=== PATIENT | female | born 1945 | race Caucasian/White ===

== ENCOUNTER 2024-02-06 18:46 | Emergency (ER) | payer OTHER, SELFPAY ==
--- NOTE | ~2024-02-06 | XR_ITS ---
EXAMINATION: XR chest 2V Exam Date/Time: 02/06/2024 19:32 CDT HISTORY: cough x 4 days. Ex smoker, HX COPD Comparison: 01/24/2018. RESULT: Lines, tubes, and devices: Cholecystectomy clips. Lungs and pleura: Subsegmental and streaky right middle lobe opacities. Cardiomediastinal silhouette: Stable. Other: No acute osseous or upper abdominal finding. IMPRESSION: Subsegmental right middle lobe atelectasis/consolidation. Reviewed, dictated and finalized at location K.
[2024-02-06 18:54] VITALS: BP 113/66; PULSE 106; RESP 20; TEMP 36.8; O2SAT 95
--- NOTE | 2024-02-06 19:11 | ED.URI ---
HPI - URI/Sore Throat General Chief Complaint: Upper Respiratory Infection Stated Complaint: cough/sob/upper respiratory Time Seen by Provider: 02/06/24 19:13 Source: patient, RN notes reviewed and old records reviewed Mode of arrival: ambulatory Limitations: no limitations History of Present Illness HPI Narrative: 78-year-old female presents [facility] with complaints of cough, shortness of breath since , 4 days. Has been using her nebulizer machine every 4-6 hours for 3 days. HX of COPD Related Data Home Medications Medication Instructions Recorded Confirmed albuterol sulfate 2.5 mg/3 mL mg 02/06/24 (0.083 %) solution for nebulization aspirin 81 mg tablet,delayed mg 02/06/24 release dicyclomine 20 mg tablet mg 02/06/24 duloxetine 60 mg capsule,delayed mg PO 02/06/24 release escitalopram oxalate 10 mg tablet mg 02/06/24 fluticasone fur. 100 mcg-umeclid inhalation 02/06/24 62.5 mcg-vilant 25 mcg inhalat.powder (Trelegy Ellipta) furosemide 20 mg tablet mg 02/06/24 isosorbide mononitrate 30 mg mg PO 02/06/24 tablet,extended release 24 hr levothyroxine 150 mcg tablet mcg 02/06/24 lorazepam 0.5 mg tablet mg 02/06/24 metformin 500 mg tablet mg 02/06/24 metoprolol succinate 25 mg mg PO 02/06/24 tablet,extended release 24 hr montelukast 10 mg tablet mg 02/06/24 olanzapine 5 mg tablet mg 02/06/24 omeprazole 40 mg capsule,delayed mg 02/06/24 release pen needle, diabetic 31 gauge x 02/06/24 02/06/24 5/16 (BD Ultra-Fine Short Pen Needle) semaglutide 0.25 mg or 0.5 mg (2 mg subcut 02/06/24 mg/3 mL) subcutaneous pen injector (AVOB) Allergies Allergy/AdvReac Type Severity Reaction Status Date / Time atorvastatin Allergy Unknown Verified 06/24/18 16:26 prochlorperazine Allergy Unknown Verified 06/24/18 16:26 Sulfa (Sulfonamide Allergy Unknown Verified 06/24/18 16:26 Antibiotics) naproxen AdvReac Unknown Nausea Verified 06/24/18 16:26 Tetracyclines AdvReac Unknown Nausea and Verified 06/24/18 16:26 Vomiting Review of Systems Review of Systems: All systems reviewed & are unremarkable except as noted in HPI and below Constitutional: Constitutional: Reports no additional constitutional complaints Eyes: Eyes: Reports no additional eye complaints ENT: Reports system reviewed and no additional complaints, except as documented Cardiovascular: Cardiovascular: Reports no additional cardiovascular complaints, Denies chest pain and Denies dyspnea Respiratory: Respiratory: Reports as per HPI, Reports chest congestion, Reports cough and Reports dyspnea Gastrointestinal: Gastrointestinal: Reports no additional gastrointestinal complaints, Denies abdominal pain, Denies nausea and Denies vomiting Musculoskeletal: Musculoskeletal: Reports no additional musculoskeletal complaints Integumentary/Breasts: Skin/Breast: Reports system reviewed and no additional complaints, except as docu Neurologic: Reports system reviewed and no additional complaints, except as documented Psychiatric: Psychiatric: Reports no additional psychiatric complaints Allergic/Immunologic: Allergic/Immunologic: Reports no additional allergic/immunologic complaints [facility] Past Medical History Medical History (Updated 02/06/24 @ 20:44 by Carmina Rubin APRN) Acid reflux Anxiety and depression COPD (chronic obstructive pulmonary disease) Diabetes Social History Social History (Updated 02/06/24 @ 20:42 by Carmina Rubin APRN) Smoking status: Former smoker Living arrangements: with family Gender identity (if verbalized by the patient): Female Comments At the time of my signature, I reviewed and agree with the nursing past medical, surgical, social, and family history. There is no relevant family history pertinent to the patient complaint. Exam Const: General: cooperative, comfortable, no acute distress, well developed, alert, ill appearing chronically and well
== END 2024-02-06 20:20 | disposition home or self-care (01) ==
PROVIDERS: Emergency Provider Nurse Practitioner; PCP Family Medicine
DX: J18.1 Lobar pneumonia, unspecified organism (principal); K21.9 Gastro-esophageal reflux disease without esophagitis; J44.9 Chronic obstructive pulmonary disease, unspecified; E11.9 Type 2 diabetes mellitus without complications; Z87.891 Personal history of nicotine dependence
CPT/HCPCS: 71046; 99213; G0463

== ENCOUNTER 2024-03-21 17:26 | Emergency (ER) | payer OTHER, SELFPAY ==
--- NOTE | ~2024-03-21 | XR_ITS ---
XR chest 2V Ordering provider: LYUDMILA Wilson History: 78 years Female with . cough x2 weeks . Comparison: February 06, 2024 FINDINGS: MEDIASTINUM: The cardiac silhouette is not enlarged. LUNGS: No infiltrates, effusions or pneumothorax. OTHER: No free air under the diaphragm. Degenerative changes of the spine with S-shaped scoliosis. IMPRESSION: No acute cardiopulmonary pathology. Reviewed, dictated and finalized at location A.
[2024-03-21 17:32] VITALS: BP 136/59; PULSE 103; RESP 18; TEMP 36.9; O2SAT 96
--- NOTE | 2024-03-21 17:54 | ED.URI ---
HPI - URI/Sore Throat General Chief Complaint: Upper Respiratory Infection Stated Complaint: congestion/tight chest/wheezing Time Seen by Provider: 03/21/24 17:46 Source: patient, RN notes reviewed and old records reviewed Mode of arrival: ambulatory Limitations: no limitations History of Present Illness HPI Narrative: Patient presents today complaining of a 2 week history of productive cough, nasal congestion, headache chills, wheezing and occasional shortness of breath. Reports cough is worse when lying flat. History of COPD. She has tried nebulizer treatments, Mucinex, Singulair, Benadryl, Flonase with mild relief. Patient was diagnosed with right middle lobe pneumonia the beginning of February and treated with Augmentin and azithromycin. States symptoms had resolved, but returned a few weeks later. Related Data Home Medications Medication Instructions Recorded Confirmed albuterol sulfate 2.5 mg/3 mL mg 02/06/24 (0.083 %) solution for nebulization aspirin 81 mg tablet,delayed mg 02/06/24 release duloxetine 60 mg capsule,delayed mg PO 02/06/24 release escitalopram oxalate 10 mg tablet mg 02/06/24 furosemide 20 mg tablet mg 02/06/24 isosorbide mononitrate 30 mg mg PO 02/06/24 tablet,extended release 24 hr levothyroxine 150 mcg tablet mcg 02/06/24 lorazepam 0.5 mg tablet mg 02/06/24 metformin 500 mg tablet mg 02/06/24 metoprolol succinate 25 mg mg PO 02/06/24 tablet,extended release 24 hr montelukast 10 mg tablet mg 02/06/24 olanzapine 5 mg tablet mg 02/06/24 omeprazole 40 mg capsule,delayed mg 02/06/24 release pen needle, diabetic 31 gauge x 02/06/24 02/06/24 5/16 (BD Ultra-Fine Short Pen Needle) semaglutide 0.25 mg or 0.5 mg (2 mg subcut 02/06/24 mg/3 mL) subcutaneous pen injector ([employer]) Allergies Allergy/AdvReac Type Severity Reaction Status Date / Time atorvastatin Allergy Unknown Other Verified 03/21/24 17:47 prochlorperazine Allergy Unknown Unknown Verified 03/21/24 17:47 Sulfa (Sulfonamide Allergy Unknown Unknown Verified 03/21/24 17:47 Antibiotics) naproxen AdvReac Unknown Nausea Verified 06/24/18 16:26 Tetracyclines AdvReac Unknown Nausea and Verified 06/24/18 16:26 Vomiting Review of Systems Review of Systems: CONSTITUTIONAL: Denies body aches, fever, or sweats.+ chills EYES: Denies visual changes, redness, or discharge. ENT: Denies rhinorrhea, sore throat, or otalgia.+ congestion CARDIOVASCULAR: Denies chest pain, palpitations, or edema. RESPIRATORY: + cough, wheezing, shortness of breath GASTROINTESTINAL: Denies abdominal pain, nausea, vomiting, or diarrhea. GENITOURINARY: Denies dysuria or hematuria. SKIN: Denies rash, itching, or wounds. MUSCULOSKELETAL: Denies back pain, joint pain, or myalgia. NEUROLOGIC: Denies numbness, tingling, or weakness.+ headache PSYCH: Denies depression or anxiety. [facility] Past Medical History Medical History Acid reflux Anxiety and depression COPD (chronic obstructive pulmonary disease) Diabetes Social History Social History Smoking status: Former smoker Living arrangements: with family Gender identity (if verbalized by the patient): Female Comments At time of signature, I have reviewed and agree with nursing past medical, surgical, social and family history unless otherwise noted. Please see nursing chart for further information. There is no relevant family history pertinent to the presenting complaint Exam Narrative: GENERAL: Well-appearing, well-nourished, and in no acute distress. HEAD: Normocephalic, atraumatic. EYES: EOMI. No redness or drainage. Conjunctivae normal. ENT: Mucous membranes pink and moist. Nares clear. No rhinorrhea. TMs normal bilaterally. Throat normal. Uvula midline. NECK: Normal AROM. Supple. No lymphadenopathy. CHEST: No respiratory dis
== END 2024-03-21 18:28 | disposition home or self-care (01) ==
PROVIDERS: Emergency Provider Nurse Practitioner; PCP Family Medicine
DX: J44.1 Chronic obstructive pulmonary disease with (acute) exacerbation (principal); J01.90 Acute sinusitis, unspecified; K21.9 Gastro-esophageal reflux disease without esophagitis; E11.9 Type 2 diabetes mellitus without complications; Z87.891 Personal history of nicotine dependence
CPT/HCPCS: 71046; 99213; G0463

== ENCOUNTER 2024-05-05 14:26 | Emergency (ER) | payer OTHER, SELFPAY ==
[2024-05-05 14:32] VITALS: BP 135/46; PULSE 87; RESP 16; TEMP 36.8; O2SAT 97
--- NOTE | 2024-05-05 14:37 | ED.GENADULT ---
HPI - General Adult General Chief complaint: Extremity Injury, Lower Stated complaint: Right Foot Swellling/Pain Time Seen by Provider: 05/05/24 14:38 Source: patient, RN notes reviewed and old records reviewed Mode of arrival: ambulatory Limitations: no limitations History of Present Illness HPI narrative: 78-year-old female to [facility] complaint of right medial ankle pain and shortness of breath for 1 week. Denies injury, numbness, tingling, altered gait, Cough, fever , chest pain. Patient resting comfortably in exam room in no acute distress. Respirations even and nonlabored. Related Data Home Medications Medication Instructions Recorded Confirmed albuterol sulfate 2.5 mg/3 mL mg 02/06/24 (0.083 %) solution for nebulization aspirin 81 mg tablet,delayed mg 02/06/24 release duloxetine 60 mg capsule,delayed mg PO 02/06/24 release escitalopram oxalate 10 mg tablet mg 02/06/24 furosemide 20 mg tablet mg 02/06/24 isosorbide mononitrate 30 mg mg PO 02/06/24 tablet,extended release 24 hr levothyroxine 150 mcg tablet mcg 02/06/24 lorazepam 0.5 mg tablet mg 02/06/24 metformin 500 mg tablet mg 02/06/24 metoprolol succinate 25 mg mg PO 02/06/24 tablet,extended release 24 hr montelukast 10 mg tablet mg 02/06/24 olanzapine 5 mg tablet mg 02/06/24 omeprazole 40 mg capsule,delayed mg 02/06/24 release pen needle, diabetic 31 gauge x 02/06/24 02/06/24 5/16 (BD Ultra-Fine Short Pen Needle) semaglutide 0.25 mg or 0.5 mg (2 mg subcut 02/06/24 mg/3 mL) subcutaneous pen injector (Ozempic) dicyclomine 20 mg tablet mg 05/05/24 diphenoxylate-atropine 2.5 tablet 05/05/24 mg-0.025 mg tablet fenofibrate 160 mg tablet mg 05/05/24 fluticasone fur. 100 mcg-umeclid inhalation 05/05/24 62.5 mcg-vilant 25 mcg inhalat.powder (Trelegy Ellipta) Allergies Allergy/AdvReac Type Severity Reaction Status Date / Time atorvastatin Allergy Unknown Other Verified 05/05/24 14:35 prochlorperazine Allergy Unknown Unknown Verified 05/05/24 14:35 Sulfa (Sulfonamide Allergy Unknown Unknown Verified 05/05/24 14:35 Antibiotics) naproxen AdvReac Unknown Nausea Verified 05/05/24 14:35 Tetracyclines AdvReac Unknown Nausea and Verified 05/05/24 14:35 Vomiting Review of Systems Review of Systems: All systems reviewed & are unremarkable except as noted in HPI and below Constitutional: Constitutional: Reports no additional constitutional complaints Eyes: Eyes: Reports no additional eye complaints ENT: Reports system reviewed and no additional complaints, except as documented Cardiovascular: Cardiovascular: Reports no additional cardiovascular complaints, Denies chest pain and Denies dyspnea Respiratory: Respiratory: Reports no additional respiratory complaints, Denies cough and Denies dyspnea Musculoskeletal: Musculoskeletal: Reports as per HPI Comments: Right medial ankle pain Neurologic: Reports system reviewed and no additional complaints, except as documented Psychiatric: Psychiatric: Reports no additional psychiatric complaints PMFSH Past Medical History Medical History Acid reflux Anxiety and depression COPD (chronic obstructive pulmonary disease) Diabetes Social History Social History Smoking status: Former smoker Living arrangements: with family Gender identity (if verbalized by the patient): Female Comments At the time of my signature, I reviewed and agree with the nursing past medical, surgical, social, and family history. There is no relevant family history pertinent to the patient complaint. Exam Const: General: cooperative, healthy appearing, comfortable, no acute distress, alert and well nourished Nutritional Appearance: well nourished Orientation/consciousness: patient oriented x3 Limitations: no limitations HENMT: Head: no
[2024-05-05 14:39] VITALS: BP 135/46; PULSE 87; RESP 16; TEMP 36.8; O2SAT 97
== END 2024-05-05 15:20 | disposition short-term general hospital (02) ==
LOC: EXPBETH 14:29
PROVIDERS: Emergency Provider Nurse Practitioner Family; PCP Family Medicine
DX: M25.571 Pain in right ankle and joints of right foot (principal); K21.9 Gastro-esophageal reflux disease without esophagitis; J44.9 Chronic obstructive pulmonary disease, unspecified; E11.9 Type 2 diabetes mellitus without complications; Z87.891 Personal history of nicotine dependence
CPT/HCPCS: 99212; G0463

== ENCOUNTER 2024-05-05 15:50 | Emergency (ER) | payer OTHER, SELFPAY ==
--- NOTE | ~2024-05-05 | XR_ITS ---
EXAMINATION: XR ankle RT min 3V DATE: 05/05/2024 16:19 INDICATION: Right ankle pain TECHNIQUE: Anteroposterior, oblique, mortise, and lateral views of the right ankle were obtained. COMPARISON: None. FINDINGS: Bone alignment is normal. No fracture. There is mild osteoarthritis at the tibiotalar and calcaneocub oid articulations. Small plantar calcaneal spur and tiny Achilles calcaneal spur. Soft tissues are un remarkable. No ankle joint effusion. IMPRESSION: 1. Mild tibiotalar and calcaneocuboid osteoarthritis. No acute osseous abnormality. Reviewed, dictated and finalized at location A. IMPRESSION: 1. Mild tibiotalar and calcaneocuboid osteoarthritis. No acute osseous abnormal ity.
--- NOTE | ~2024-05-05 | US_ITS ---
EXAMINATION: US venous doppler LE RT DATE: 05/05/2024 16:29 INDICATION: Right lower limb pain TECHNIQUE: Grayscale ultrasound images without and with compression and Doppler ultrasound images of the right lower extremity veins were obtained. COMPARISON: None. FINDINGS: The visualized portions of right common femoral vein, profunda (deep) femoral vein, femoral vein, pop liteal vein, peroneal trunk, posterior tibial veins, peroneal veins, gastrocnemius vein and greater s aphenous vein outflow are patent. IMPRESSION: 1. No deep venous thrombosis in the right lower limb. Reviewed, dictated and finalized at location A.
[2024-05-05 15:51] VITALS: BP 132/59; PULSE 88; RESP 16; TEMP 36.6; O2SAT 97
--- NOTE | 2024-05-05 16:08 | ED.EXTPRO ---
HPI - Extremity Problem General Chief complaint: Extremity Problem,Nontraumatic Stated complaint: r/o dvt from urgent care Time Seen by Provider: 05/05/24 15:54 History of Present Illness HPI Narrative: 78-year-old female with a reported history of pancreatic cancer in remission for 2 years presents to the emergency department to rule out a DVT to her right lower extremity. Patient reports pain and swelling to her right lower tib-fib and ankle for approximately 1 week. She denies injury trauma. She went to urgent care prior to coming to the ED and was sent to the ED for an ultrasound to rule out a DVT. She does report a history of DVT in the past when she was undergoing chemotherapy. She was on Eliquis but discontinued this approximately 2 years ago. Related Data Home Medications Medication Instructions Recorded Confirmed albuterol sulfate 2.5 mg/3 mL mg 02/06/24 (0.083 %) solution for nebulization aspirin 81 mg tablet,delayed mg 02/06/24 release duloxetine 60 mg capsule,delayed mg PO 02/06/24 release escitalopram oxalate 10 mg tablet mg 02/06/24 furosemide 20 mg tablet mg 02/06/24 isosorbide mononitrate 30 mg mg PO 02/06/24 tablet,extended release 24 hr levothyroxine 150 mcg tablet mcg 02/06/24 lorazepam 0.5 mg tablet mg 02/06/24 metformin 500 mg tablet mg 02/06/24 metoprolol succinate 25 mg mg PO 02/06/24 tablet,extended release 24 hr montelukast 10 mg tablet mg 02/06/24 olanzapine 5 mg tablet mg 02/06/24 omeprazole 40 mg capsule,delayed mg 02/06/24 release pen needle, diabetic 31 gauge x 02/06/24 02/06/24 5/16 (BD Ultra-Fine Short Pen Needle) semaglutide 0.25 mg or 0.5 mg (2 mg subcut 02/06/24 mg/3 mL) subcutaneous pen injector (Ozempic) dicyclomine 20 mg tablet mg 05/05/24 diphenoxylate-atropine 2.5 tablet 05/05/24 mg-0.025 mg tablet fenofibrate 160 mg tablet mg 05/05/24 fluticasone fur. 100 mcg-umeclid inhalation 05/05/24 62.5 mcg-vilant 25 mcg inhalat.powder (Trelegy Ellipta) Allergies Allergy/AdvReac Type Severity Reaction Status Date / Time atorvastatin Allergy Unknown Other Verified 05/05/24 14:35 prochlorperazine Allergy Unknown Unknown Verified 05/05/24 14:35 Sulfa (Sulfonamide Allergy Unknown Unknown Verified 05/05/24 14:35 Antibiotics) naproxen AdvReac Unknown Nausea Verified 05/05/24 14:35 Tetracyclines AdvReac Unknown Nausea and Verified 05/05/24 14:35 Vomiting Review of Systems Review of Systems: All systems reviewed & are unremarkable except as noted in HPI and below PMFSH Past Medical History Medical History Acid reflux Anxiety and depression COPD (chronic obstructive pulmonary disease) Diabetes Social History Social History Smoking status: Former smoker Living arrangements: with family Gender identity (if verbalized by the patient): Female Exam Narrative: GENERAL: Well-appearing, well-nourished, and in no acute distress. HEAD: Normocephalic, atraumatic. EYES: PERRLA and EOMI. NECK: Supple. CHEST: Clear to auscultation. No respiratory distress. HEART: Regular rate and rhythm. No murmur heard. Normal peripheral pulses. EXTREMITIES: RLE: Trace edema to the distal tib/fib with tenderness to the anterior aspect Of the distal tibia into the medial aspect of the ankle. No obvious deformity. Negative Homans sign. DP pulse 2 +. Sensation intact. Full range of motion of ankle. SKIN: Warm, dry, no rash. NEURO: No focal deficits. Alert and oriented x3 Course Vital Signs Vital signs: Vital Signs Temperature 97.9 F 05/05/24 15:51 Pulse Rate 88 05/05/24 15:51 Respiratory Rate 16 05/05/24 15:51 Blood Pressure 132/59 L 05/05/24 15:51 Pulse Oximetry 97 05/05/24 15:51 Temperature 97.9 F 05/05/24 15:51 Pulse Rate 88 05/05/24 15:51 Respiratory Rate 16 05/05/24 15
[2024-05-05 17:00] LABS: Basophils Absolute Auto 0.1 K/mm3 (0.0-0.1); Basophils Percent Auto 0.4 % (0.2-1.2); Eosinophils Absolute Auto 0.4 K/mm3 (0-0.3); Eosinophils Percent Auto 3.1 % (0-4.4); Hematocrit 36.9 % (37.0-47.0); Hemoglobin 12.1 g/dL (12.0-15.0); Immature Granulocyte Absolute 0.02 K/mm3 (0.00-0.031); Immature Granulocyte Percent A 0.2 % (0-0.5); Lymphocytes Absolute Auto 2.87 K/mm3 (0.9-3.2); Lymphocytes Percent Auto 24.7 % (18.3-44.2); Mean Corpuscular HGB Conc 32.8 g/dl (32-36); Mean Corpuscular Hemoglobin 29.2 pg (26-34); Mean Corpuscular Volume 89.1 fl (80-100); Mean Platelet Volume 9.6 fl (7.4-10.4); Monocytes Percent Auto 8.9 % (2.6-8.5); Neutrophils Absolute Auto 7.3 K/mm3 (1.3-6.7); Neutrophils Percent Auto 62.7 % (45.5-73.1); Platelet Count Result 447 k/mm3 (150-375); Red Blood Count 4.14 M/mm3 (4.2-5.4); Red Cell Distribution Width 15.9 % (11.5-14.5); White Blood Count 11.6 K/mm3 (4.5-10.0)
[2024-05-05 17:11] LABS: INR 0.9; Prothrombin Time 12.6 Seconds (11.1-14.7)
[2024-05-05 17:12] LABS: Partial Thromboplastin Time 24.1 Seconds (22.3-36.8)
[2024-05-05 17:20] LABS: Anion Gap 12 mmol/L (4-12); Blood Urea Nitrogen 19 mg/dL (7-17); Calcium 9.2 mg/dL (8.4-10.2); Carbon Dioxide 28 mmol/L (22-30); Chloride 96 mmol/L (98-107); Estimated Glomerular Filt Rate > 60; Glucose 118 mg/dL (65-110); Sodium 136 mmol/L (137-145)
== END 2024-05-05 17:45 | disposition home or self-care (01) ==
PROVIDERS: Emergency Provider Physician Assistant; PCP Family Medicine
DX: M25.571 Pain in right ankle and joints of right foot (principal); M79.604 Pain in right leg; K21.9 Gastro-esophageal reflux disease without esophagitis; F41.9 Anxiety disorder, unspecified; F32.A Depression, unspecified; J44.9 Chronic obstructive pulmonary disease, unspecified; E11.9 Type 2 diabetes mellitus without complications; Z79.84 Long term (current) use of oral hypoglycemic drugs
CPT/HCPCS: 36415; 73610; 80048; 85025; 85610; 85730; 93971; 99284

== ENCOUNTER 2024-10-30 08:53 | Emergency (ER) | payer OTHER, MEDICAID, SELFPAY ==
--- NOTE | ~2024-10-30 | XR_ITS ---
EXAMINATION: XR chest 2V DATE: 10/30/2024 09:56 INDICATION: Cough and congestion. TECHNIQUE: Frontal and lateral views of the chest were obtained. COMPARISON: Chest 2 view 03/21/2024 FINDINGS: There is mild atelectasis in the lower lung zones. No pleural effusion or pneumothorax. The heart size is normal. There are surgical clips in the abdomen. IMPRESSION: 1. Mild atelectasis in the lower lung zones. Reviewed, dictated and finalized at location A. NING DEVELOPMENT MANAGER
[2024-10-30 09:15] VITALS: BP 131/53; PULSE 91; RESP 20; TEMP 36.8; O2SAT 94
--- OUTSIDE RECORDS SUMMARY | 2024-10-30 09:25 | XMS_ITS | Encounter Summary ---
Author Organization [facility] Health Address [address] [place] [address] Care Team Providers Care Contact Center Assistant Name Role Phone JimjayleenHector MD Unavailable Unavailable Jamaal Waters MD Unavailable [phone] Rosmery Hardy MD Primary Care Provider [phone] Rosmery Hardy MD Primary Care Provider [phone] Sam Boogie MD Unavailable [phone] Felix Berger MD Primary Care Provider [phone] Cortez Grossman MD Primary Care Provider [phone] Encounter Details Date Type Department Care Team (Late st Contact Info) Description 05/28/2013 [facility] Outpatient Visit [facility] Orthopedics [address] [place] [address] Jamaal Waters MD [address] [place] [address] Social History Tobacco Use Types Packs/Day Years Used Date Smoking Tobacco: Former Cigarettes 1 16 0 12/19/1977 - 12/19/1993 Alcohol Use Standard Drinks/Week Comments Yes 0.8 (1 standard drink = 0.6 oz p ure alcohol) social Sex and Gender Information Value Date Recorded Sex Assigned at Not on file Gender Identity Not on file Sexual Orientation Not on file documented as of this encounter Plan of Treatment Not on file documented as of this encounter Visit Diagnoses Not on filedocumented in this encounter Care Teams Contact Center Assistant Relationship Specialty [place] [id number] [place] [address] PCP - General Family Medicine 02/05/13 10/14/13 [place] [address] [place] [address] PCP - General Family Medicine 02/07/14 09/18/15 [place] [id number] [place] [phone] PCP - General Internal Medicine 09/19/15 10/06/15 Cortez Grossman MD [address] [place] [address] PCP - General Internal Medicine 10/07/15 Hector Jaramillo MD Rheumatology 05/25/11 [place] [id number] [place] [address] Orthopedic Surgery 12/20/11 [place] [id number] [place] [address] Psychiatry 07/24/14 Cyn [address]appas [address] [facility], [address] [address] 04/06/11 07/23/14 documented as of this encounter
--- OUTSIDE RECORDS SUMMARY | 2024-10-30 09:25 | XMS_ITS | Encounter Summary ---
Author Organization [facility] Health Address [address] [facility] [place] [address] Care Team Providers Care Teachers Aide Name Role Phone JimjayleenHector MD Unavailable Unavailable Jamaal Waters MD Unavailable [phone] Rosmery Hardy MD Primary Care Provider [phone] Rosmery Hardy MD Primary Care Provider [phone] Sam Boogie MD Unavailable [phone] Felix Berger MD Primary Care Provider [phone] Cortez Grossman MD Primary Care Provider [phone] Encounter Details Date Type Department Care Team (Late st Contact Info) Description 02/23/2013 [facility] Outpatient Visit [facility] Orthopedics [address] [place] [phone] Jamaal Waters MD [address] [place] [phone] Social History Tobacco Use Types Packs/Day [...] on filedocumented in this encounter Care Teams Teachers Aide Relationship Specialty [place] [address] [place] [address] PCP - General Family Medicine 02/05/13 10/14/13 [place] [address] [place] [phone] PCP - General Family Medicine 02/07/14 09/18/15 [place] [address] [place] [phone] PCP - General Internal Medicine 09/19/15 10/06/15 Cortez Grossman MD [address] [place] [address] PCP - General Internal Medicine 10/07/15 Hector Jaramillo MD Rheumatology 05/25/11 [place] [address] [place] [phone] Orthopedic Surgery 12/20/11 [place] [address] [place] [address] Psychiatry 07/24/14 Cyn Pappas [address] [facility], [address] [place] [address] 04/06/11 07/23/14 documented as of this encounter
--- OUTSIDE RECORDS SUMMARY | 2024-10-30 09:25 | XMS_ITS | Encounter Summary ---
Author Organization [facility] Health Address [address] [facility] [place] [address] Care Team Providers Care Government Relations Director Name Role Phone Hector Jaramillo MD Unavailable Unavailable Jamaal Waters MD Unavailable [phone] Rosmery Hardy MD Primary Care Provider [phone] Sam Boogie MD Unavailable [phone] Felix Berger MD Primary Care Provider [phone] Cortez Grossman MD Primary Care Provider [phone] Encounter Details Date Type Department Care Team (Late st Contact Info) Description 08/22/2014 [facility] Outpatient Visit [facility] Orthopedics [address] [place] [phone] Jamaal Waters MD [address] [place] [phone] Social History Tobacco Use Types Packs/Day [...] on filedocumented in this encounter Care Teams Government Relations Director Relationship Specialty Start [place] [address] [place] [phone] PCP - General Family Medicine 02/07/14 09/18/15 [place] [address] [place] [phone] PCP - General Internal Medicine 09/19/15 10/06/15 Cortez Grossman MD [address] [place] [address] PCP - General Internal Medicine 10/07/15 Hector Jaramillo MD Rheumatology 05/25/11 [place] [address] [place] [phone] Orthopedic Surgery 12/20/11 [place] [address] [place] [phone] Psychiatry 07/24/14 documented as of this encounter
--- OUTSIDE RECORDS SUMMARY | 2024-10-30 09:25 | XMS_ITS | Referral Summary ---
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 Name Role Phone Cortez Grossman MD Primary Care Provider [phone] Jacinto Wang MD Unavailable + Eri Jacob MD Unavailable Joaquina Nice MD Unavailable Kishan John MD Unavailable [phone] Sam Boogie MD Unavailable Jersey Asher MD PhD Unavailable Venkat Kelsey MD Unavailable Encounters Date Type Department Care Team Description 09/27/2024 Orders Only [facility] [address] [address] Cortez Grossman MD Carcinoma of tail of pancreas (HCC); Diarrhea, unspecified type from Last 3 Months Allergies Active Allergy Reactions Criticality Noted Date Comments Atorvastatin Fatigue Low Codeine Nausea only Low Doxycycline Hives Medium 12/22/2019 Ezetimibe Fatigue Low Granisetron Hcl Anaphylaxis,Swellin g,Rash High 09/19/2018 Pt stated she felt as if her throat was swelling and her tongue was getting bigger Naproxen Nausea only Low Prochlorperazine Other (See comments) Low 12/19/2009 Reaction: lock jaw Lock jaw Rppvwor-Lfu-Qmd Reductase Inhibitors Other (See comments) Low 11/27/2018 flu like symptoms Sulfa (Sulfonamide Antibiotics) Nausea & Vomiting Low Tetracycline Nausea only Low Medications oxygenIndicatio ns:Dyspnea Administer 2 L/min into each nostril continuously Active albuterol HFA (Ventolin HFA) 90 mcg/actuation inhalerIndicati ons:COPD exacerbation (HCC) Inhale 2 puffs every 4 (four) hours as needed for wheezing or shortness of breath 8 g 5 08/31/20 19 Active Additional Information Patient not taking.Reported on 07/10/2024 OLANZapine (ZyPREXA) 5 mg tablet Take 1 tablet (5 mg total) by mouth nightly 10/15/19 Active nebulizer accessories misc 1 each as directed 1 each 01/03/20 Active blood glucose diagnostic (Contour Next Test Strips) strip USE TO TEST BLOOD SUGAR DAILY 50 strip 5 10/30/[address] (CYMBALTA) 60 mg capsule 01/17/20 22 Active NOT IN DATABASE, PRESCRIPTION, Drug name: Magic Mouthwash (lidocaine, maalox, nystastin 1:1:1) Dose: 10 ml Route: swish and spit Frequency: in AM, before meals, and before bedtime Duration: PRN 1 each 3 01/22/20 22 Active Microlet Lancet miscIndications :Type 2 diabetes mellitus with hyperglycemia, without long-term current use of insulin ([facility]) USE TO TEST BLOOD SUGAR ONCE DAILY 100 each 2 02/19/20 22 Active fluticasone propionate (FLONASE) 50 mcg/actuation nasal spray SPRAY 2 SPRAYS INTO EACH NOSTRIL EVERY DAY 48 mL 1 05/16/20 22 Active LORazepam (ATIVAN) 0.5 mg tablet TAKE ONE TAB BY MOUTH EVERY MORNING AND AT 3PM 05/14/20 22 Active nystatin cream APPLY TO AFFECTED AREA TWICE A DAY FOR 7 DAYS 30 g 09/27/19 23 Active Additional Information Patient not taking.Reported on 07/10/2024 dicyclomine (BENTYL) 20 mg tablet Take 1 tablet (20 mg total) by mouth daily 100 tablet 3 05/02/20 23 Active escitalopram (LEXAPRO) 10 mg tablet 07/04/20 23 Active al & mag hydroxide with simethicone-dip henhydramine-li docaine (MAGIC MOUTHWASH) suspension 1-1-1 Swish and swallow 15 mL every 4 (four) hours as needed (canker sores) 500 mL 1 11/10/19 24 Active albuterol 2.5 mg /3 mL (0.083 %) nebulizer solution Take 3 mL (2.5 mg total) by nebulization 4 (four) times a day as needed for wheezing or shortness of breath 360 mL 3 12/22/19 24 2024 Active isosorbide mononitrate ER (IMDUR) 30 mg 24 hr tablet Take 1 tablet (30 mg total) by mouth daily 30 tablet 11 01/02/20 24 2024 Active pen needle, diabetic 31 gauge x 16 needle Use to inject 1-4 times daily as directed. 300 each 4 01/19/20 24 Active ondansetron (ZOFRAN) 8 mg tabletIndicatio ns:Carcinoma of tail of pancreas (HCC) TAKE ONE TABLET BY MOUTH EVERY 8 HOURS NEEDED FOR NAUSEA AND VOMITING 30 tablet 11 03/01/20 24 Active levothyroxine (SYNTHROID) 137 mcg tablet Take 1 tablet (137 mcg total) by mouth daily 90 tablet 3 03/28/20 24 Active metoprolol XL (TOPROL-XL) 25 mg extended release tablet TAKE 1 TABLET BY MOUTH EVERY DAY 100 tablet 1 06/15/20 24 Active blood-glucose meter,continuou s (Dexcom G6 Hair Assistant) misc Use as directed. Change medical laboratory technologist every 12 months. 1 each 07/10/20 24 Active blood-glucose sensor (Dexcom G6 Sensor) device Use as directed. Change sensor every 10 days. 3 each 07/10/20 24 Active blood-glucose transmitter (Dexcom G6 Transmitter) device Use as directed. Change transmitter every 90 days. 1 each 07/10/20 24 Active metFORMIN (GLUCOPHAGE) 500 mg tabletIndicatio ns:Type 2 diabetes mellitus with hyperglycemia, without long-term current use of insulin (HCC) TAKE 2 TABLETS BY MOUTH TWICE A DAY WITH FOOD 360 tablet 2 07/12/20 24 Active omeprazole (PriLOSEC) 40 mg capsule TAKE ONE CAPSULE BY MOUTH ONCE DAILY BEFORE BREAKFAST 90 capsule 1 07/13/20 24 Active Trelegy Ellipta 100-62.5-25 mcg inhaler INHALE 1 PUFF DAILY 180 each 1 07/18/20 24 Active montelukast (SINGULAIR) 10 mg tablet TAKE 1 TABLET BY MOUTH EVERY DAY AT NIGHT 100 tablet 1 07/28/20 24 Active furosemide (LASIX) 20 mg tablet TAKE 1 TABLET BY MOUTH TWICE A DAY 180 tablet 3 08/30/20 24 Active semaglutide (Ozempic) 0.25 mg or 0.5 mg (2 mg/3 mL) pen injector injection INJECT 0.5MG UNDER THE SKIN EVERY 7 DAYS 3 mL 1 09/22/19 25 Active diphenoxylate-a tropine (LOMOTIL) 2.5-0.025 mg per tabletIndicatio ns:Carcinoma of tail of pancreas (HCC),Diarrhea, unspecified type Take 1 tablet by mouth 4 (four) times a day as needed for diarrhea 120 tablet 09/27/19 25 Active fenofibrate (TRIGLIDE) 160 mg tabletIndicatio ns:Hypertriglyc eridemia TAKE 1 TABLET BY MOUTH EVERY DAY 90 tablet 1 10/01/19 25 Active aspirin 81 mg enteric coated tabletIndicatio ns:Coronary artery disease of [place] heart with stable angina pectoris, unspecified vessel or lesion type (HCC) TAKE 1 TABLET BY MOUTH EVERY DAY 100 tablet 10/03/19 25 Active fenofibrate (TRIGLIDE) 160 mg tabletIndicatio ns:Hypertriglyc eridemia Take 1 tablet (160 mg total) by mouth daily 90 tablet 1 04/02/20 24 2024 Discontinued aspirin 81 mg enteric coated tabletIndicatio ns:Coronary artery disease of [place] heart with stable angina pectoris, unspecified vessel or lesion type (HCC) TAKE 1 TABLET BY MOUTH EVERY DAY 100 tablet 06/26/20 24 2024 Discontinued Active Problems Problem Noted Date Diagnosed Date Encounter for screening mamm ogram for malignant neoplasm of breast 07/10/2024 Assessment & Plan (07/11/2024 8:56 AM BLEACH BOILER PULLER): Mammogram ordered. Will plan accordingly once results are received. Class 2 severe obesity due t o excess calories with serious comorbidity and body mass index (BMI) of 39.0 to 39.9 in adult 07/10/2024 Assessment & Plan (07/11/2024 8:58 AM BLEACH BOILER PULLER): Continue with heart healthy diet. On supplemental oxygen by nasal cannula 03/28/20 Assessment & Plan (07/11/2024 8:57 AM BLEACH BOILER PULLER): Continues with O2 q.h.s.. Denies any daytime dyspnea. Will continue to monitor. Assessment & Plan (03/28/2024 4:24 PM CDT): Continue with O2 supplement at night. Hypertensive heart disease with heart failure (C MS/HCC) 03/28/2024 Assessment & Plan (07/11/2024 8:57 AM BLEACH BOILER PULLER): Well controlled on metoprolol, furosemide. Reviewed lifestyle recommendations. Will continue to monitor. Type 2 diabetes mellitus with hyperlipidemia 04/2024 Assessment & Plan (07/11/2024 8:59 AM BLEACH BOILER PULLER): A1c 6.6%. Good job. Will continue with current dose of Ozempic. Will order Dexcom. Will continue to monitor. Assessment & Plan (03/28/2024 4:51 PM CDT): Continue taking ozempic, increase dose to 0.5 mg weekly. Educated on diet and exercise. Will continue to monitor. Red flags reviewed. Assessment & Plan (12/12/2023 4:36 PM CDT): Compliant with fenofibrate. Will check lipid panel and plan accordingly. Reviewed lifestyle recommendations. Chronic airway obstruction 09/30/2023 Overview (09/30/2023): WEARS OXYGEN AT NIGHT Assessment & Plan (12/12/2023 4:37 PM CDT): Not using Trelegy inhaler. Again discussed the importance of compliance with inhalers with chronic lung disease. She is agreeable and states understanding. Will also place referral to pulmonology. Red flags reviewed. Balance problem 07/07/2023 Encounter for Medicare annual wellness exam 10/2022 Assessment & Plan (07/10/2024 3:13 PM BLEACH BOILER PULLER): Visit preventive in nature. We reviewed medications, chronic conditions, risk factors, lifestyle recommendations. Reviewed immunization recommendations. Follow-up in 6 months for chronic conditions and 1 year for annual wellness. Assessment & Plan (07/07/2023 2:20 PM CDT): Preventive exam; reviewed recommended preventive screenings and vaccinations. Encourage annual flu vaccine. Statin myopathy 06/15/2022 Unstable angina ([facility]/HCC) 01/15/2022 Acute on chronic diastolic heart failure ([facility]/HC C) 01/14/2022 Chest pain due to myocardial ischemia 01/13/2022 Family history of colon cancer 09/19/2020 Overview (09/19/2020): Added automatically from request for surgery [id number] Acute rhinitis 11/13/2019 Assessment & Plan (11/13/2019 10:05 AM CDT): Advised on use of Flonase. Referred otalgia of both ears 06/11/2019 Assessment & Plan (06/11/2019 2:38 PM CDT): TMJ dysfunction discussed and Handout provided Laryngopharyngeal reflux (LPR) 06/11/2019 Assessment & Plan (06/11/2019 4:20 PM CDT): Continue omeprazole Gastroesophageal reflux disease without esophagi tis 04/13/2019 Overview (04/13/2019): Added automatically from request for surgery [id number] Upper respiratory virus 12/22/2018 Assessment & Plan (12/22/2018 1:45 PM CDT): You have an upper respiratory infection which is viral. You will need to take OTC medications Mucinex for chest congestion Sudafed for nasal/head congestion Antihistamine for nasal drainage Drink plenty of fluids to stay hydrated Get plenty of rest Very poor fluid intake; reviewed that d/c instructions state 2L water/day. Will call if worsening or in improvement by Tuesday12/25/18. Reviewed red flags. Malignant neoplasm of pancreas 09/29/2018 Cancer Staging:Clinical stage from 08/01/2018:Stage IIB(cT2, cN1, cM0) - Signed by Jersey Asher MD PhD on 04/02/2019 Pathologic stage from 12/12/2018:Stage IIB(ypT1b, pN1, cM0) - Signed by Robert Michaels MD PhD on 01/30/2019 Overview (09/29/2018): Added automatically from request for surgery [id number] Acute non-recurrent pansinusitis 09/13/2018 Assessment & Plan (03/28/2024 4:51 PM CDT): Complete abx sent. Reviewed abx Ses & scheduling of Levaquin. Aware to complete full course. To continue mucinex/sinus otc medications. Discussed nasal saline rinses/neti pots. Push fluids. Reviewed red flags; what would warrant rtc. Assessment & Plan (11/13/2019 10:05 AM CDT): Will await response antibiotic. Advised on supportive care measures. Assessment & Plan (09/13/2018 1:30 PM BLEACH BOILER PULLER): Acute on Chronic Sinusitis Has had sinus surgery in the past with many polyps removed Presents with sinus pain, pressure, headache, tenderness, drainage Pt. Is immunocompromised being on chemotherapy Will start Augmentin BID for 10 days Recommend routine sinus hygiene regimen and this was discussed with patient Pt. May need to see ENT again for sinus polyps Recommend jennifer pot as much as possible to irrigate sinuses as long as no bleeding r/t to low platelets with Gemzar. Complete antibiotics and other meds as prescribed Take OTC decongestants for congestion- Sudafed/Mucinex Motrin/Tylenol for pain/fever If you have high blood pressure or any kidney disease use Tylenol only. Take an Antihistamines like Zyrtec or Claritin or Mary daily at bedtime for the next 2-3 weeks. Can take Benadryl at bedtime for the next 3-4 days for immediate relief of runny nose and may help with sinus headache. Try saline nasal spray irrigations 2-4 times a day or try using Jennifer pot as directed daily then use your Flonase or other corticosteroid nasal spray every day to decrease the swelling and inflammation in your nasal cavities. Drink plenty of water & get plenty of rest A humidifier may also help with congestion Follow up with your PCP in 3-5 days if you are not getting better Carcinoma of tail of pancreas (CMS/HCC) 08/09/20 18 Assessment & Plan (07/11/2024 9:01 AM BLEACH BOILER PULLER): Does continue following with GI. Reports she was discharged from Oncology but I believe she should still be following with them. Advised to schedule follow-up. Will check CA 19-9. Assessment & Plan (07/07/2023 2:21 PM CDT): Following with Oncology/Gastroenterology. Assessment & Plan (12/22/2018 12:28 PM CDT): Reviewed D/C instructions with Mrs Campa & her : D/c instructions: drink 2L water (non-caffeinated beverages) daily. Incentive spirometer throughout day. Food log x3 days before appt w/Dr Gray. Should be eating 6-8 small meals/day & 2-3 drink supplements/day (boost, ensure, glucerna). Has f/u appt scheduled for 12/27/[address] Gray. Duodenal nodule 07/18/2018 Overview (07/18/2018): Added automatically from request for surgery [id number] Bloating 03/17/2018 Assessment & Plan (03/18/2018 1:25 PM CDT): She will have a serologic testing for Celiac disease, and an endoscopic evaluation as outlined above. I also provided her with AGA patient information on the FODMAP diet. Abdominal pain 03/17/2018 Assessment & Plan (05/02/2023 2:09 PM CDT): Metamucil bid and fruit tid and bentyl 20 ac return 4 weeks Assessment & Plan (09/19/2020 11:32 AM BLEACH BOILER PULLER): 6 mos of RLQ abd pain rleieved by BM and 4-5 bm/d. Recent CT NAD s/p splenectomy and removal of tail of pancreas for CA. Last colonoscopy 2014. Pain sounds colonic so will colonoscope and try addition of 3 fruits/d. Recap after procedure. Assessment & Plan (03/18/2018 1:31 PM CDT): She will be scheduled for upper endoscopy in the near future to further evaluate this. She reports having had a prior EGD a number of years ago during which some polyps were removed. Steatosis of liver 09/16/2017 Assessment & Plan (03/18/2018 1:33 PM CDT): Consistent with non-alcoholic fatty liver disease. No evidence of significant fibrosis on non-invasive testing. Would benefit from weight loss of 5-10% body weight. Hemangioma of liver 09/16/2017 Assessment & Plan (03/18/2018 1:30 PM CDT): Her prior CT scan showed two small hemangiomas, which are benign and not expected to have negative health consequences. We discussed the possibility of re-imaging at the one-year point. Lesion of liver 07/08/2017 Anxiety state 06/13/2017 Arthropathy 06/13/2017 Depressive disorder 06/13/2017 Myalgia and myositis 06/13/2017 Atherosclerosis of coronary artery 01/19/2014 Overview (12/09/2016): COR ATH UNSP VSL NTV/GFT Assessment & Plan (07/11/2024 8:59 AM BLEACH BOILER PULLER): Denies chest pain. Compliant with medication regimen. Red flags reviewed. Continue following with cardiology as directed. Assessment & Plan (03/28/2024 4:24 PM CDT): Denies chest pain. Reviewed medication regimen. Will continue to monitor. Assessment & Plan (07/07/2023 2:20 PM CDT): Patient was statin intolerance. Reviewed heart healthy/low fat diet. LDL = 109 Chronic sinusitis 01/19/2014 Overview (12/09/2016): CHRONIC SINUSITIS NOS Assessment & Plan (06/11/2019 4:19 PM CDT): Sinus Rinse daily, Flonase 2 sprays into each nostril while looking down over the sink, do not sniff in or blow nose after use. 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 Recheck TFTs in 3 months. Assessment & Plan (12/12/2023 4:35 PM CDT): Has been stable on current dose of levothyroxine. Will check TSH with next set of labs. Assessment & Plan (07/07/2023 2:01 PM CDT): Levothyroxine 150 mcg daily. Will check TSH/T4 and make changes as needed. Lab Results Component Value Date TSH 0.62 05/10/2023 TSH 4.30 (H) 01/14/2022 TSH 1.45 08/25/2021 Chronic obstructive pulmonary disease ([facility]) 09/05/2011 Overview (06/13/2017): COPD Overview: WEARS OXYGEN AT NIGHT Assessment & Plan (07/07/2023 2:00 PM CDT): Using oxygen 2 liters nightly. 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 Previously using Trelegy daily, states she prefers to use this as needed. Explained to patient that this is a daily maintenance medications. She is agreeable to continue daily. Denies any recent exacerbation. Assessment & Plan (11/13/2019 10:05 AM CDT): Stable today. No exacerbation. Back pain 12/19/2009 DJD (degenerative joint disease) of knee 010 Overview (06/13/2017): Overview: 01/08/2010 bilateral knee 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 Synvisc soon Fibromyalgia 12/19/2009 Glaucoma 12/19/2009 Overview (06/13/2017): Overview: 12/19/2009 consider visit to eye doctor to evaluate glaucoma status and eye pain Insomnia 12/19/2009 Polyarthritis 12/19/2009 Overview (06/13/2017): Overview: Rf nml Fibrositis 12/07/2008 Overview (12/10/2016): Fibromyalgia Mixed anxiety depressive disorder 07/09/1960 Overview (12/09/2016): Depression with anxiety Assessment & Plan (07/07/2023 2:23 PM CDT): Medications managed by Psychiatry, Dr. Boogie. -duloxetine, Lexapro Type 2 diabetes mellitus Assessment & Plan (12/12/2023 4:38 PM CDT): A1c 8.5%. Will initiate Ozempic. Reviewed SES and contraindications. CGM E scribed as well. Will have her follow-up in 3 months. Red flags reviewed. Assessment & Plan (07/07/2023 2:22 PM CDT): Lab Results Component Value Date HGBA1C 7.7 (H) 05/10/2023 HGBA1C 7.6 11/02/2022 HGBA1C 7.8 (H) 08/11/2022 A1c above goal, stressed with patient the need to reduce simple sugars/carbs from diet. Patient recently started with increase exercise/activity, walking at the mall. Encouraged to schedule diabetic eye exam. -continue metformin 1000 mg b.i.d.. Resolved Problems Problem Noted Date Diagnosed Date Resolved Date Need for prophylactic vaccin ation and inoculation against influenza 09/03/2020 03/28/2024 Morbid obesity with body mas s index (BMI) of 40.0 to 44.9 in adult 08/13/2018 08/10/2021 Assessment & Plan (12/22/2018 1:46 PM CDT): Reviewed need to lose weight, reviewed health benefits. Reviewed recommendations for daily intake & activity 20-30 minutes/day. Discussed healthy diet and importance of regular physical activity. Assessment & Plan (09/13/2018 1:21 PM BLEACH BOILER PULLER): Obesity is unchanged. Discussed the patient's BMI. The BMI is above average; BMI management plan is completed. General weight loss/lifestyle modification strategies discussed (elicit support from others; identify saboteurs; non-food rewards, etc). Diet= low-carb Limit white bread, rice, pasta, potatoes, juice, energy drinks, coffee creamers with sugar, sugar sodas, candy, cake, cookies, ice cream. Be more careful with starchy vegetables like corn, carrots, and fruits. Stay away from processed foods, fast foods, fried foods. The cornerstone of this diet is lean grilled meats, green salads or cooked greens, fat-free milk, cottage cheese, nuts like noaliar-jgcgsxe-jhclorj, protein bars with 10-15 g of protein and 20-30 g of carbohydrate. Choose whole grain breads and pastas, brown rice, sweet potatoes, read onions--these whole grains absorb more slowly thus blood sugar does not surge so high so quickly. Avoid drinking juice, eat a piece of fruit instead. Assessment & Plan (08/13/2018 9:18 PM BLEACH BOILER PULLER): Encourage a weight loss program such as Weight Watchers incorporating dietary changes and aerobic / weight-bearing exercise at least 4-5 times per week, for at least 30-45 minute sessions. Impaired glucose tolerance 01/19/2013 0 11/02/2022 Overview (12/09/2016): Borderline diabetes Adiposity 07/09/2011 11/02/2022 Overview (12/09/2016): Obesity Sicca 12/19/2009 12/22/2018 Immunizations Immunization Administration Dates Next Due Hep A / Hep B 09/16/2017 Hib (PRP-T) 12/14/2018 Influenza, Quadrivalent, Nishi l Culture-based MDCK, Preservative Free, Antibiotic Free, Intramuscular 09/03/2020 Influenza, Quadrivalent, Hig h Dose, Preservative Free, Intrr 07/07/2023,06/14/2022,08/10/2021 Influenza, Quadrivalent, Spl it, Intramuscular 05/07/2016,10/02/2015 Influenza, Quadrivalent, Spl it, Preservative Free, Intramuscular 06/13/2017 Influenza, Split 07/09/2013 Influenza, Trivalent, High D ose, Split, Preservative Free, Intramuscular 07/10/2024,09/12/2019,06/15/2018 Influenza, Trivalent, IM (MDV) 09/05/2011 Meningococcal MCV4P (Menactra) 11/28/2018 Palivizumab 06/02/2011,05/26/2011,05/19/2011 Pneumococcal Conjugate PCV 13 11/28/2018 Pneumococcal Polysaccharide PPV23 09/12/2019,09/2012,09/05/2011 Td, adsorbed 09/05/2007 Social History Tobacco Use Types Packs/Day Years Used Date Smoking Tobacco: Former Cigarettes 1 31 1 963 - 1989 Smokeless Tobacco: Never Tobacco Cessation:Counseling Given: Not Answered Alcohol Use Standard Drinks/Week Comments No 0 (1 standard drink = 0.6 oz pur e alcohol) AUDIT-C Answer Date Recorded Q1: How often do you have a drink containing alc ohol? Monthly or less 11/02/2022 Q2: How many drinks containi ng alcohol do you have on a typical day when you are drinking? 1 or 2 11/02/2022 Q3: How often do you have si x or more drinks on one occasion? Never 11/02/2022 PHQ-2 Answer Date Recorded PHQ-2 Total Score (If total score is 3 or more points, staff should administer the PHQ-9) 0 07/10/2024 Personal Safety Answer Date Recorded Have you ever been in or are you currently in a harmful physical or emotional relationship or is someone making you feel afraid or unsafe? Denies 04/27/2023 Comments No Sex and Gender Information Value Date Recorded Sex Assigned at Not on file Legal Sex Female 11:20 AM BLEACH BOILER PULLER Gender Identity Not on file Sexual Orientation Not on file Last Filed Vital Signs Vital Sign Reading Time Taken Comments Blood Pressure 104/58 07/10/2024 2:37 PM BLEACH BOILER PULLER Pulse 74 07/10/2024 2:37 PM BLEACH BOILER PULLER Temperature 36.7 C (98.1 F) 07/10/2024 2:37 PM BLEACH BOILER PULLER Respiratory Rate 20 07/10/2024 2:37 PM BLEACH BOILER PULLER Oxygen Saturation 95% 07/10/2024 2:37 PM BLEACH BOILER PULLER Inhaled Oxygen Concentration - - Weight 82.7 kg (182 lb 6.4 oz) 07/10/2024 2:37 P M BLEACH BOILER PULLER Height 144.8 cm (4' 9.01 ) 07/10/2024 2:37 PM CS T Body Mass Index 39.46 07/10/2024 2:37 PM BLEACH BOILER PULLER Plan of Treatment Not on file Medical Devices Implanted Type Area Blower Mechanic Device Identifier Shelf Expiration Date Model / Serial / Lot [employer] [id number] Xcela 8fr 1.6mm 1 Lumen Power Injectable Attach Catheter Fill - [id number] Implanted:Qty: 1 on 08/16/[address] [facility] Catheter Right: Chest [employer] [id number] 04/17/2023 [id number] Knee Replacement Left: Knee Angio-Seal Evolution 6fr Vascular Closure [id number] - [id number] Implanted:Qty: 1 on 01/14/2022 by Venkat Kelsey MD at [facility] 08/04/2022 [id number] / / [id number] Procedures Procedure Name Priority Date/Time Associated Diagnosis Comments EGFR Routine 07/05/2024 10:40 AM CDT Type 2 diabetes mellitus with hyperlipidemia (HCC) Atherosclerosis of [place] coronary artery of [place] heart without angina pectoris HEMOGLOBIN A1C Routine 07/05/2024 10:40 AM CDT Type 2 diabetes mellitus with hyperlipidemia (HCC) Atherosclerosis of [place] coronary artery of [place] heart without angina pectoris LIPID PANEL Routine 07/05/2024 10:40 AM CDT Type 2 diabetes mellitus with hyperlipidemia (HCC) Atherosclerosis of [place] coronary artery of [place] heart without angina pectoris ALBUMIN CREATININE RATIO, URINE Routine 03/26/2024 1:31 PM CDT Type 2 diabetes mellitus with hyperglycemia, without long-term current use of insulin (CMS/HCC) (HCC) COLONOSCOPY 10/20/2020 10:12 AM BLEACH BOILER PULLER SCREENING MAMMOGRAM BILATERAL W FOREST Schedule Routine, Read Routine (OP Routine) 05/12/2018 2:08 PM CDT Encounter for screening mammogram for malignant neoplasm of breast HEPATITIS C ANTIBODY Routine Gen Lab 09/16/2017 3:32 PM BLEACH BOILER PULLER from Last 3 Months or Most Recently Relevant to Health Maintenance Results * eGFR (07/05/2024 10:40 AM CDT) eGFR >90 >=60 mL/min/1. 73 m2 Comment: Interpretive Data Reference Interval Normal >/= 90 mL/min/1.73m2 Mildly decreased* 60 - 89 mL/min/1.73m2 Mildly to moderately decreased 45 - 59 mL/min/1.73m2 Moderately to severely decreased 30 - 44 mL/min/1.73m2 Severely decreased 15 - 29 mL/min/1.73m2 Kidney Failure < 15 mL/min/1.73m2 *Relative to young adult level Estimated glomerular filtration rate is determined by the 2020 CKD-EPI equation recommended by the National Kidney Foundation (A Unifying Approach to GFR Estimation: Recommendations of the NKF-ASK Task Force on Reassessing the Inclusion of Race in Diagnosing Kidney Disease, JASN 2020). The CKD-EPI equation should not be used for patients with unstable renal function and has not been validated in children and those over 70. Current interpretive data was last reviewed 2021. Testing performed by: [facility], [address] [place] [address]., [address] Blood 07/05/2024 10:4 0 AM CDT 07/05/2024 9:09 PM CDT Teressa Bee NP LAB BLOOD ORDERABLES Final Result Performing Organization Address [facility] Co de Phone Number MARITZA EVERARDO ([place]) 1 [facility] [place] [address] * (ABNORMAL) Hemoglobin A1c (07/05/2024 10:40 AM CDT) [facility] Signature Hgb A1C 6.6(H) 4.0 - 5.6 % Comment:Testing performed by : [address] [address] Estimated Average Glucose 143 mg/dL MARITZA MCGEE (TK) Comment: The ADA recommends reporting an estimated Average Glucose (eAG) with all Hemoglobin A1c results using the equation derived from a study of 507 normal and diabetic adults. Minority populations were underrepresented and children were not included. (Diabetes Care 31:8161-5023, 2008). The eAG is not equivalent to a fasting glucose. Testing performed by: [facility], [address] [place] [address]., [address] Blood 07/05/2024 10:4 0 AM CDT 07/05/2024 8:16 PM CDT Teressa Bee NP LAB BLOOD ORDERABLES Final Result Performing Organization Address [facility] de Phone Number MARITZA MCGEE ([place]) [address] [place] [address] * (ABNORMAL) Lipid panel (07/05/2024 10:40 AM CDT) [facility] Signature Cholesterol 203(H) 30 - 199 mg/dL Comment: Interpretive Data Ages < or = 19 years Acceptable: <170 mg/dL Borderline high: 170-199 mg/dL High: >or= 200 mg/dL Ages > or = 20 years Desirable: <200 mg/dL Borderline high: 200-239 mg/dL High: >or= 240 mg/dL Literature References: 1. Expert Panel on Integrated Guidelines for Cardiovascular Health and Risk Reduction in Children and Adolescents. Pediatrics 2011;128:S213 2. NCEP Expert Panel. Circulation 2004;110:227 Current Interpretive Data was last revised on 2018. Testing performed by: [address] [address] Triglycerides 135 <=149 mg/dL MARITZA MCGEE (TK) Comment: Interpretive Data Ages < or = 9 years Acceptable: <75 mg/dL Borderline high: 75-99 mg/dL High: >or= 100 mg/dL Ages 10 to 20 years Acceptable: <90 mg/dL Borderline high: 90-129 mg/dL High: >or= 130 mg/dL Ages > or = 20 years Desirable: <150 mg/dL Borderline high: 150-199 mg/dL High: 200-499 mg/dL Very high: >or= 499 mg/dL Literature References: 1. Expert Panel on Integrated Guidelines for Cardiovascular Health and Risk Reduction in Children and Adolescents. Pediatrics 2011;128:S213 2. NCEP Expert Panel. Circulation 2004;110:227 Current Interpretive Data was last revised on 2018. Testing performed by: [facility], [address] [place] [address]., [address] HDL 64 >=40 mg/dL MARITZA MCGEE (TK) Comment: Interpretive Data Ages < or = 19 years Acceptable: >45 mg/dL Borderline low: 40-45 mg/dL Low: <40 mg/dL Ages > or = 20 years Desirable: >or= 60 mg/dL Low: <40 mg/dL Literature References: 1. Expert Panel on Integrated Guidelines for Cardiovascular Health and Risk Reduction in Children and Adolescents. Pediatrics 2011;128:S213 2. NCEP Expert Panel. Circulation 2004;110:227 Current Interpretive Data was last revised on 2018. Testing performed by: [facility], [address] [place] [address]., [address] LDL, calculated 115 <=129 mg/dL MARITZA MCGEE (TK) Comment: Interpretive Data Ages < or = 19 years Acceptable: <110 mg/dL Borderline high: 110-129 mg/dL High: >or= 130 mg/dL Ages > or = 20 years Optimal: <100 mg/dL Near optimal: 100-129 mg/dL Borderline high: 130-159 mg/dL High: >160 mg/dL Calculated using the Abhinav LDL-C estimating equation. This equation was implemented on 2024. Prior to this date LDL-C was estimated using the Friedewald equation. Literature References: 1. Expert Panel on Integrated Guidelines for Cardiovascular Health and Risk Reduction in Children and Adolescents. Pediatrics 2011;128:S213 2. NCEP Expert Panel. Circulation 2004;110:227 3. Abhinav Dawson et al. CURLY Cardiol. 2020 January 03;5(5):540-548. doi: 10.1001/jamacardio.2020.0013 Current Interpretive Data was last revised on 2024. Testing performed by: [address] [address] Non-HDL Cholesterol 139 mg/dL MARITZA MCGEE (TK) Comment: Interpretive Data Ages < or = 19 years Acceptable: <120 mg/dL Borderline high: 120-144 mg/dL High: >145 mg/dL Ages > or = 20 years When triglycerides are >200 mg/dL, Non-HDL cholesterol is a secondary target of therapy with treatment goals that are 30 mg/dL greater than the LDL cholesterol target. Literature References: 1. Expert Panel on Integrated Guidelines for Cardiovascular Health and Risk Reduction in Children and Adolescents. Pediatrics 2011;128:S213 2. NCEP Expert Panel. Circulation 2004;110:227 Current Interpretive Data was last revised on 2018. Testing performed by: [address] [address] Chol/HDL ratio 3 ALICIA MCGEE (TK) Comment:Testing performed by : [address] [address] Blood 07/05/2024 10:4 0 AM CDT 07/05/2024 8:16 PM CDT Teressa Bee NP LAB BLOOD ORDERABLES Final Result Performing Organization Address [facility] de Phone Number MARITZA MCGEE ([place]) [address] [facility] [place] [address] * (ABNORMAL) Albumin Creatinine Ratio, Urine (03/26/2024 1:31 PM CDT) Albumin Ur 87.1 mg/L Comment: Interpretive Data No reference range established. Current interpretive data was last revised 2019. Testing performed by: [facility], [address] [place] [address], [address] Creatinine Ur 189.3 mg/dL [facility] (TK) Comment: Interpretive Data No reference range established. Current interpretive data was last revised 2019. Testing performed by: [facility], [address] [place] [address], [address] Albumin Creatinine Ratio, Ur 46(H) 1 - 29 mg/g [facility] (TK) Comment:Testing performed by : [facility], [address] [place] [address]., [address] Urine 03/26/2024 1:31 PM CDT 03/26/2024 8:48 PM CDT Teressa Bee NP LAB URINE ORDERABLES Final Result Performing Organization Address [facility] de Phone Number MARITZA MCGEE (TK) [address] [facility] [place] [address] * COLONOSCOPY (10/20/2020 10:12 AM BLEACH BOILER PULLER) Anatomical Region Laterality Modality Other Narrative Procedure Note Ismael Johnson MD - 10/20/2020 10:12 AM CST [facility] Patient Name: Kimberly Campa Procedure Date: 10/20/2020 10:12 AM Date of : 1945 Admit Type: Outpatient Age: 75 Gender: Female Attending MD: Ismael Johnson M.D. Room: [facility] ENDOSCOPY ROOM 2 Note Status: Finalized Patient Profile: Refer to note in patient chart for documentation of history and physical. Procedure: Colonoscopy Indications: Screening for colorectal malignant neoplasm, Last colonoscopy: August 2015 Referring MD: Cortez Grossman M.D. Providers: Ismael Johnson M.D. Impression: - Hemorrhoids found on perianal exam. - The entire examined colon is normal. - No specimens collected. Recommendation: - Discharge patient to home. - Resume previous diet. - Continue present medications. - Repeat colonoscopy in 10 years for screening purposes. - Return to primary care physician as previously scheduled. Medicines: Propofol per Anesthesia Complications: No immediate complications. Estimated Blood Loss: Estimated blood loss: none. Procedure: Pre-Anesthesia Assessment: - This assessment was completed [Time ofAssessment] prior to the administration of sedation. The benefits, risks and alternatives of theprocedure and sedation were discussed and informed consentwas obtained. All questions were answered. Please referto the signed informed consent document in the medical record. Bowel prep was administered using a single dose. The bowel preparation used was Miralax via single dose instruction. The bowel preparation used was bisacodyl tablets via single dose instruction.The scope was passed under direct vision. TheColonoscope [id number] was introduced through the anus and advanced to the the cecum, identified by appendiceal orifice and ileocecal valve. The colonoscopy was performed without difficulty. The patient tolerated the procedure well. The qualityof the bowel preparation was good. Findings: Hemorrhoids were found on perianal exam. The colon (entire examined portion) appeared normal. Electronically signed by Ismael Johnson M.D. Ismael Johnson M.D. 10/20/2020 11:41:41 AM Number of Addenda: 0 Note Initiated On: 10/20/2020 10:12 AM Procedure Code(s): --- Professional --- G0121, Colorectal cancer screening; colonoscopy on individual not meeting criteria for high risk Diagnosis Code(s): --- Professional --- Z12.11, Encounter for screening for malignant neoplasm of colon K64.9, Unspecified hemorrhoids CPT copyright 2019 [employer]. All rights reserved. The codes documented in this report are preliminary and upon hospital coder reviewmay be revised to meet current compliance requirements. Recognized by the [place] [employer] for promoting quality in endoscopy Ismael Johnson MD ENDOSCOPY PROCEDURES Final Re sult * SCREENING MAMMOGRAM BILATERAL W FOREST (05/12/2018 2:08 PM CDT) Anatomical Region Laterality Modality Breast Bilateral Mammography 05/12/2018 2:10 PM CDT Impressions 05/12/2018 2:11 PM CDT BIRADS Category 2: Benign finding(s). Digital technology was employed plus computer-aided detection software (R2) was utilized in interpretation of these images. This facility utilizes a reminder system to notify patients of yearly mammograms. Electronically signed by: Bradly Lawrence M.D. Narrative 05/12/2018 2:11 PM CDT EXAMINATION: Digital screening mammogram with tomosynthesis. HISTORY: Breast cancer screening PRIOR: 05/11/2017 and 05/03/2016 DENSITY: Heterogeneously dense which could obscure small masses FINDINGS: Little change is noted. No new dominant mass, architectural distortion, nipple retraction, skin thickening, or suspicious calcifications are seen. A biopsy clip is present in the right outer breast. Scattered benign calcifications are again seen. us Cortez Grossman MD IMG MAMMO PROCEDURES Saritha l Result * Hepatitis C antibody (09/16/2017 3:32 PM BLEACH BOILER PULLER) Hep C Ab Nonreactive Nonreactive [facility] Comment: Interpretive Data Positive and greyzone results should be confirmed by a molecular method. If positive or greyzone, a second separately collected sample should be submitted for Hepatitis C Virus RNA. Detection and Quantitation by Real-Time Reverse Supervisor Sheet Manufacturing-PCR.Current Interpretive data was last revised on 2017. Blood specimen (specimen) 09/16/2017 3:32 PM BLEACH BOILER PULLER 09/16/2017 3:50 PM BLEACH BOILER PULLER Narrative [facility] - 09/17/2017 9:10 AM BLEACH BOILER PULLER Joaquina Nice MD LAB MICROBIOLOGY - GEN ERAL ORDERABLES Edited Result - Final [facility] [address] [place] [address] from Last 3 Months or Most Recently Relevant to Health Maintenance Insurance [employer] Advance Directives For more information, please contact: [phone] * Full Code (Latest Code Status on File) Date Activated Date Inactivated Comments 01/13/2022 2:32 PM 01/15/2022 5:24 PM * Full Code Date Activated Date Inactivated Comments 10/20/2020 9:41 AM 10/20/2020 4:23 PM * Full Code Date Activated Date Inactivated Comments 10/20/2020 9:41 AM 10/20/2020 9:41 AM * Full Code Date Activated Date Inactivated Comments 05/03/2019 9:35 AM 05/03/2019 3:54 PM * Full Code Date Activated Date Inactivated Comments 12/12/2018 9:31 PM 12/14/2018 7:05 PM Care Teams Automotive Electrical Fitter Relationship Specialty Start Date End Date Cortez Grossman MD [address] [place] [address] PCP - General 10/14/17 Jacinto Wang MD [address] [place] [address] Referring Physician Gastroenterology 08/03/18 Eri Jacob MD [address] [place] [address] Referring Physician Medical Oncology 08/15/18 Joaquina Nice MD [address] [place] [address] Referring Physician Transplant Hepatology 11/04/18 Kishan John MD [address] [facility] [address] [place] [address] Radiation Oncologist Radiation Oncology 01/30/19 Sam Boogie MD [address] [address] [place] [address] Psychiatry 02/19/19 Jersey Asher MD PhD [address] [facility] [address] [place] [address] Radiation Oncologist Radiation Oncology 04/02/19 Venkat Kelsey MD [address] [facility] [address] [place] [address] Consulting Physician Cardiology 01/15/22
--- OUTSIDE RECORDS SUMMARY | 2024-10-30 09:25 | XMS_ITS | Encounter Summary ---
Author Organization [facility] Healthcare Address [address] [place] [address] Care Team Providers Care Lead Shipper Name Role Phone Cortez Grossman MD Primary Care Provider [phone] Jacinto Wang MD Unavailable + Eri Jacob MD Unavailable Joaquina Nice MD Unavailable [phone] Kishan John MD Unavailable [phone] Sam oBogie MD Unavailable [phone] Jersey Asher MD PhD Unavailable + [phone] Venkat Kelsey MD Unavailable [phone] Brandie Ram LPN Unavailable [phone] Encounter Details Date Type Department Care Team (Late st Contact Info) Description 06/04/2021 Telephone [facility] [address] [place] [address] Jose Angel Ramírez, RT Social History Tobacco Use Types Packs/Day Years Used Date Smoking Tobacco: Former Cigarettes 963 - 1988 Smokeless Tobacco: Never Alcohol Use Standard Drinks/Week Comments No 0 (1 standard drink = 0.6 oz pur e alcohol) AUDIT-C Answer Date Recorded Q1: How often do you have a drink containing alc ohol? Never 03/04/2021 Average Number of Drinks Not on file 021 Frequency of Binge Drinking Not on file 02/05 PHQ-2 Answer Date Recorded PHQ-2 Total Score (If total score is 3 or more points, staff should administer the PHQ-9) 0 09/30/2020 Comments No Sex and Gender Information Value Date Recorded Sex Assigned at Not on file Legal Sex Female 11:20 AM REPORT SPECIALIST Gender Identity Not on file Sexual Orientation Not on file documented as of this encounter Plan of Treatment Not on file documented as of this encounter Visit Diagnoses Not on filedocumented in this encounter Additional Health Concerns Infection Onset Date Last Indicated Resolved Time COVID: Suspected 04/27/2023 04/27/2023 04/27/2023 4:40 PM CDT documented as of this encounter Care Teams Lead Shipper Relationship Specialty Start Date End Date Cortez Grossman MD [address] [place] [address] PCP - General 10/14/17 Jacinto Wang MD [address] [place] [address] Referring Physician Gastroenterology 08/03/18 Eri Jacob MD [address] [facility] [address] [place] [address] Referring Physician Medical Oncology 08/15/18 Joaquina Nice MD [address] [facility] [address] [place], [place] [address] Referring Physician Transplant Hepatology 11/04/18 Kishan John MD [address] [facility] [address] [place], [place] [address] Radiation Oncologist Radiation Oncology 01/30/19 Sam Boogie MD [address] [address] Psychiatry 02/19/19 Jersey Asher MD PhD [address] [facility] [address] [place] [address] Radiation Oncologist Radiation Oncology 04/02/19 Venkat Kelsey MD [address] [facility] [address] [place] [address] Consulting Physician Cardiology 01/15/22 Brandie Ram, HUGO [address] [place] [address] [address] [place] [address] ACO Care Heavy Equipment Plumbing Supervisor 01/18/22 01/27/22 documented as of this encounter
--- OUTSIDE RECORDS SUMMARY | 2024-10-30 09:25 | XMS_ITS | Encounter Summary ---
Author Organization [facility] Healthcare Address [address] [place] [address] Care Team Providers Care Junior Bookkeeper Name Role Phone Cortez Grossman MD Primary Care Provider [phone] Jacinto Wang MD Unavailable + Eri Jacob MD Unavailable Joaquina Nice MD Unavailable [phone] Kishan John MD Unavailable [phone] Sam Boogie MD Unavailable [phone] Jersey Asher MD PhD Unavailable + [phone] Venkat Kelsey MD Unavailable [phone] Brandie Ram LPN Unavailable [phone] Reason for Visit * Reason Onset Date Comments Scheduling Appointments 05/08/2021 Confirmi ng dexa appt- no answer Encounter Details Date Type Department Care Team (Late st Contact Info) Description 05/08/2021 Telephone [facility] 1 [place] [address] Bryanna Winslow RT Scheduling Appointments (Confirming dexa appt- no answer ) Social History Tobacco Use Types Packs/Day Years [...] on file Legal Sex Female 11:20 AM SUGAR REFINER Gender Identity Not on file Sexual Orientation Not on file documented as of this encounter Plan of Treatment Not on file documented as of this encounter Visit Diagnoses Not on filedocumented in this encounter Additional Health Concerns Infection Onset Date Last Indicated Resolved Time COVID: Suspected 04/27/2023 04/27/2023 04/27/2023 4:40 PM CDT documented as of this encounter Care Teams Junior Bookkeeper Relationship Specialty Start Date End Date Cortez Grossman MD [address] [place] [address] PCP - General 10/14/17 Jacinto Wang MD [address] [place] [address] Referring Physician Gastroenterology 08/03/18 Eri Jacob MD [address] [facility] [facility] [address] [place] [address] Referring Physician Medical Oncology 08/15/18 Joaquina Nice MD [address] [facility] [address] [place], [place] [address] Referring Physician Transplant Hepatology 11/04/18 Kishan John MD [address] [facility] [address] [place] [address] Radiation Oncologist Radiation Oncology 01/30/19 Sam Boogie MD [address] [facility] [address] [place] [address] Psychiatry 02/19/19 Jersey Asher MD PhD [address] [facility] [address] [place] [address] Radiation Oncologist Radiation Oncology 04/02/19 Venkat Kelsey MD [address] [facility] [address] [place] [address] Consulting Physician Cardiology 01/15/22 Brandie Ram, GLASS ROBOT OPERATOR [address] [facility] [address] [place] [address] ACO Care Divine Healer 01/18/22 01/27/22 documented as of this encounter
--- OUTSIDE RECORDS SUMMARY | 2024-10-30 09:25 | XMS_ITS | Encounter Summary ---
Author Organization [facility] Healthcare Address [address] [place] [address] Care Team Providers Care Data Analysis Intern Name Role Phone Cortez Grossman MD Primary Care Provider [phone] Jacinto Wang MD Unavailable + Eri Jacob MD Unavailable Joaquina Nice MD Unavailable [phone] Kishan John MD Unavailable [phone] Sam Boogie MD Unavailable [phone] Jersey Asher MD PhD Unavailable + [phone] Venkat Kelsey MD Unavailable [phone] Brandie Ram LPN Unavailable [phone] Encounter Details Date Type Department Care Team (Late st Contact Info) Description 04/27/2021 Telephone [facility] [address] [place] [address] Sarina Lechuga, RT Social History Tobacco Use Types Packs/Day [...] on file Legal Sex Female 11:20 AM PRN OCCUPATIONAL THERAPIST Gender Identity Not on file Sexual Orientation Not on file documented as of this encounter Plan of Treatment Not on file documented as of this encounter Visit Diagnoses Not on filedocumented in this encounter Additional Health Concerns Infection Onset Date Last Indicated Resolved Time COVID: Suspected 04/27/2023 04/27/2023 04/27/2023 4:40 PM CDT documented as of this encounter Care Teams Data Analysis Intern Relationship Specialty Start Date End Date Cortez Grossman MD [address] [place] [address] PCP - General 10/14/17 Jacinto Wang MD [address] [place] [address] Referring Physician Gastroenterology 08/03/18 Eri Jacob MD [address] [facility] [address] [place] [address] Referring Physician Medical Oncology 08/15/18 Joaquina Nice MD [address] [facility] [address] [place], [place] [address] Referring Physician Transplant Hepatology 11/04/18 Kishan John MD [address] [facility] [address] [place], [place] [address] Radiation Oncologist Radiation Oncology 01/30/19 Sam Boogie MD [address] [address] Psychiatry 02/19/19 Jersey Asher MD PhD [address] [facility] [address] [facility] [place] [address] Radiation Oncologist Radiation Oncology 04/02/19 Venkat Kelsey MD [address] [address] Consulting Physician Cardiology 01/15/22 Brandie Ram, HUGO [address] [place] [address] [address] [place] [address] ACO Care Oil Dispatcher 01/18/22 01/27/22 documented as of this encounter
--- OUTSIDE RECORDS SUMMARY | 2024-10-30 09:25 | XMS_ITS | Clinical Summary ---
Author Organization [facility] Address [address] [place] [address] Care Team Providers Care Automatic Cigar Wrapper Tender Name Role Phone Cortez Grossman MD Primary Care Provider Jacinto Wang MD Unavailable + Eri Jacob MD Unavailable Joaquina Nice MD Unavailable [phone] Kishan John MD Unavailable Sam Boogie MD Unavailable [phone] Jersey Asher MD PhD Unavailable [phone] Venkat Kelsey MD Unavailable [phone] Allergies Active Allergy Reactions Criticality Noted Date Comments Atorvastatin Fatigue Low Codeine Nausea only Low Doxycycline Hives Medium 12/22/2019 Ezetimibe Fatigue Low Granisetron Hcl Anaphylaxis,Swellin g,Rash High 09/19/2018 Pt stated she felt as if her throat was swelling and her tongue was getting bigger Naproxen Nausea only Low Prochlorperazine Other (See comments) Low 12/19/2009 Reaction: lock jaw Lock jaw Jezcalt-Fqf-Fst Reductase Inhibitors Other (See comments) Low 11/27/2018 [...] 1 each as directed 1 each 01/03/20 20 Active blood glucose diagnostic (Contour Next Test [...] without long-term current use of insulin (HCC) USE TO TEST BLOOD SUGAR ONCE DAILY [...] Active pen needle, diabetic 31 gauge x 01/18 needle Use to inject 1-4 times daily [...] 24 Active blood-glucose meter,continuou s (Dexcom G6 Bore Miner Operator) misc Use as directed. Change family nurse every 12 months. 1 each 07/10/20 24 [...] enteric coated tabletIndicatio ns:Coronary artery disease of [place] heart with stable angina pectoris, unspecified vessel or lesion type (HCC) TAKE 1 TABLET BY MOUTH EVERY DAY 100 tablet 10/03/19 25 Active fenofibrate (TRIGLIDE) 160 mg tabletIndicatio ns:Hypertriglyc eridemia Take 1 tablet (160 mg total) by mouth daily 90 tablet 1 04/02/20 24 2024 Discontinued aspirin 81 mg enteric coated tabletIndicatio ns:Coronary artery disease of [place] heart with stable angina pectoris, unspecified vessel or lesion type (HCC) TAKE 1 TABLET BY MOUTH EVERY DAY 100 tablet 06/26/20 24 2024 Discontinued Active Problems Problem Noted Date Diagnosed Date Encounter for screening mamm ogram for malignant neoplasm of breast 07/10/2024 Assessment & Plan (07/11/2024 8:56 AM SCROLL SAW OPERATOR): Mammogram ordered. Will plan accordingly once results are received. Class 2 severe obesity due t o excess calories with serious comorbidity and body mass index (BMI) of 39.0 to 39.9 in adult 07/10/2024 Assessment & Plan (07/11/2024 8:58 AM SCROLL SAW OPERATOR): Continue with heart healthy diet. On supplemental oxygen by nasal cannula 03/28/20 Assessment & Plan (07/11/2024 8:57 AM SCROLL SAW OPERATOR): Continues with O2 q.h.s.. Denies any daytime dyspnea. Will continue to monitor. Assessment & Plan (03/28/2024 4:24 PM CDT): Continue with O2 supplement at night. Hypertensive heart disease with heart failure (C MS/HCC) 03/28/2024 Assessment & Plan (07/11/2024 8:57 AM SCROLL SAW OPERATOR): Well controlled on metoprolol, furosemide. Reviewed lifestyle recommendations. Will continue to monitor. Type 2 diabetes mellitus with hyperlipidemia 04/2024 Assessment & Plan (07/11/2024 8:59 AM SCROLL SAW OPERATOR): A1c 6.6%. Good job. Will continue with [...] 10/2022 Assessment & Plan (07/10/2024 3:13 PM SCROLL SAW OPERATOR): Visit preventive in nature. We reviewed medications, chronic conditions, risk factors, lifestyle recommendations. Reviewed immunization recommendations. Follow-up in 6 months for chronic conditions and 1 year for annual wellness. Assessment & Plan (07/07/2023 2:20 PM CDT): Preventive exam; reviewed recommended preventive screenings and vaccinations. Encourage annual flu vaccine. Statin myopathy 06/15/2022 Unstable angina (CMS/HCC) 01/15/2022 Acute on chronic diastolic heart failure (CMS/HC C) 01/14/2022 Chest pain due to myocardial ischemia 01/13/2022 Family history of colon cancer 09/19/2020 Overview (09/19/2020): Added automatically from request for surgery [id number] Acute rhinitis 11/13/2019 Assessment & Plan (11/13/2019 10:05 AM CDT): Advised on use of Flonase. Referred otalgia of both ears 06/11/2019 Assessment & Plan (06/11/2019 2:38 PM CDT): TMJ dysfunction discussed and Handout provided Laryngopharyngeal reflux (LPR) 06/11/2019 Assessment & Plan (06/11/2019 4:20 PM CDT): Continue omeprazole Gastroesophageal reflux disease without esophagi tis 04/13/2019 Overview (04/13/2019): Added automatically from request for surgery [id number] Upper respiratory virus 12/22/2018 Assessment & Plan [...] (09/29/2018): Added automatically from request for surgery [id number] Acute non-recurrent pansinusitis 09/13/2018 Assessment & Plan [...] measures. Assessment & Plan (09/13/2018 1:30 PM SCROLL SAW OPERATOR): Acute on Chronic Sinusitis Has had sinus [...] 18 Assessment & Plan (07/11/2024 9:01 AM SCROLL SAW OPERATOR): Does continue following with GI. Reports she [...] (07/18/2018): Added automatically from request for surgery [id number] Bloating 03/17/2018 Assessment & Plan (03/18/2018 1:25 [...] weeks Assessment & Plan (09/19/2020 11:32 AM SCROLL SAW OPERATOR): 6 mos of RLQ abd pain rleieved [...] NTV/GFT Assessment & Plan (07/11/2024 8:59 AM SCROLL SAW OPERATOR): Denies chest pain. Compliant with medication regimen. [...] TSH 1.45 08/25/2021 Chronic obstructive pulmonary disease (CMS/HCC) 09/05/2011 Overview (06/13/2017): COPD Overview: WEARS OXYGEN AT NIGHT Assessment & Plan (07/07/2023 2:00 PM CDT): Using oxygen 2 liters nightly. Has not seen communications scientist in some time. Previously using Trelegy daily, [...] activity. Assessment & Plan (09/13/2018 1:21 PM SCROLL SAW OPERATOR): Obesity is unchanged. Discussed the patient's BMI. [...] greens, fat-free milk, cottage cheese, nuts like ddbhlcb-jcdewdy-hinomxi, protein bars with 10-15 g of protein and 20-30 g of carbohydrate. Choose whole grain breads and pastas, brown rice, sweet potatoes, read onions--these whole grains absorb more slowly thus blood sugar does not surge so high so quickly. Avoid drinking juice, eat a piece of fruit instead. Assessment & Plan (08/13/2018 9:18 PM SCROLL SAW OPERATOR): Encourage a weight loss program such as Weight Watchers incorporating dietary changes and aerobic / weight-bearing exercise at least 4-5 times per week, for at least 30-45 minute sessions. Impaired glucose tolerance 01/19/2013 0 11/02/2022 Overview (12/09/2016): Borderline diabetes Adiposity 07/09/2011 11/02/2022 Overview (12/09/2016): Obesity Sicca 12/19/2009 12/22/2018 Encounters Date Type Department Care Team Description 09/27/2024 Orders Only [facility] [address] [place] [address] Cortez Grossman MD Carcinoma of tail of pancreas (HCC); Diarrhea, unspecified type from Last 3 Months Immunizations Immunization Administration Dates Next Due Hep [...] Pneumococcal Polysaccharide PPV23 09/12/2019,09/2012,09/05/2011 Td, adsorbed 09/05/2007 Surgical History Surgery Date Site/Laterality Comments TONSILLECTOMY CATARACT EXTRACTION KNEE ARTHROPLASTY Left CHOLECYSTECTOMY BREAST BIOPSY Right x3 PORT PLACEMENT CHEST >5 YEARS 08/16/2018 N/A SINUS SURGERY polyps removed ESOPHAGOGASTRODUODENOSCOPY TOTAL ABDOMINAL HYSTERECTOMY W/ BILATERAL SALPINGOOPHORECTOMY 09/05/1993 - 09/04/1994 DILATION AND CURETTAGE OF UTERUS FINGER AMPUTATION 09/05/2007 - 09/04/2008 left index finger 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 ESOPHAGOGASTRODUODENOSCOPY EUS BRONCHOSCOPY 09/05/2012 - 09/04/2013 PORT REMOVAL 05/25/2019 N/A COLONOSCOPY 08/14/2015 Medical History Medical History Date Comments Hyperlipidemia Pneumonia 2011 Primary fibromyalgia syndrome 2009 Osteoarthritis 2009 Chronic obstructive pulmonary disease (HCC) 2011 10 HS Irritable bowel syndrome Hypothyroidism Diaphragm dysfunction right Atrophic gastritis autoimmune Rheumatoid arthritis (HCC) Not c urrently on therapy Scoliosis Jerome's palsy Prediabetes Vitamin D deficiency Hepatic steatosis Sicca (HCC) 12/19/2009 History of colon polyps 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 Pancreatic cancer (HCC) Colon polyp PONV (postoperative nausea and vomiting) Sleep apnea sleeps with o2 GERD (gastroesophageal reflux disease) Hypertension Type 2 diabetes mellitus (HCC) Depression Family History Medical History Relation Name Comments Lung cancer Brother 1 Cancer -lung; Cancer Brother 2 Family history of malignant neoplasm - (Added by TW Conv) Cancer Father Family history of malignant neoplasm - (Added by TW Conv) Heart attack Father Myocardial infa rction; Cause of : Myocardial infarction/Family history of myocardial infarction - (Added by TW Conv) Colon cancer Maternal Grandfather COPD Mother COPD; Cancer Mother Family history of malignant neoplasm - (Added by TW Conv) Osteoporosis Mother Osteoporosis; Other Mother Alive and well; Asthma Other 1 Family H/O Asthma; COPD Other 1 Family H/O COPD; Cancer Other 1 Family H/O Cancer; Heart disease Other 1 Family H/O Heart disease; Hypertension Other 1 Family H/O Hypertension; Macular degeneration Other 1 Family H/O Macular degeneration; Osteoporosis Other 1 Family H/O Osteoporosis; Macular degeneration Other 8 Family history of macular degeneration; Relation Name Status Comments Brother 1 Brother 2 Father Maternal Grandfather Mother Other 1 Family H/O Alive Other 2 Family H/O Alive Other 3 Family H/O Alive Other 4 Family H/O Alive Other 5 Family H/O Alive Other 6 Family H/O Alive Other 7 Family H/O Alive Other 8 Social History Tobacco Use Types Packs/Day Years Used Date Smoking Tobacco: Former Cigarettes 1 31 1 963 - 1988 Smokeless Tobacco: Never Tobacco Cessation:Counseling Given: Not [...] on file Legal Sex Female 11:20 AM SCROLL SAW OPERATOR Gender Identity Not on file Sexual Orientation Not on file Obstetrics History Para Term AB IAB SAB Ectopic Multiple Livin g Live Births 0 0 0 0 0 0 0 0 0 0 0 Last Filed Vital Signs Vital Sign Reading Time Taken Comments Blood Pressure 104/58 07/10/2024 2:37 PM SCROLL SAW OPERATOR Pulse 74 07/10/2024 2:37 PM SCROLL SAW OPERATOR Temperature 36.7 C (98.1 F) 07/10/2024 2:37 PM SCROLL SAW OPERATOR Respiratory Rate 20 07/10/2024 2:37 PM SCROLL SAW OPERATOR Oxygen Saturation 95% 07/10/2024 2:37 PM SCROLL SAW OPERATOR Inhaled Oxygen Concentration - - Weight 82.7 kg (182 lb 6.4 oz) 07/10/2024 2:37 P M SCROLL SAW OPERATOR Height 144.8 cm (4' 9.01 ) 07/10/2024 2:37 PM CS T Body Mass Index 39.46 07/10/2024 2:37 PM SCROLL SAW OPERATOR Plan of Treatment Health Maintenance Due Date Last Done Comments Dilated Eye Exam 1945 Zoster Vaccine (1 of 2) 1996 DTaP/Tdap/Td Vaccine (1 - Tdap) 09/06/2007 09/05/2007 Foot Exam 12/11/2024 12/12/2023, 10/07, 08/10/2021, Additional history exists Hemoglobin A1C 01/02/2025 07/05/2024, 03/06, 12/12/2023, Additional history exists Albumin Creatinine Ratio, Urine 03/26/2025 03/26/2024, 12/12/2023, 11/02/2022, Additional history exists Lipid Panel 07/05/2025 07/05/2024, 03/06, 05/10/2023, Additional history exists eGFR 07/05/2025 07/05/2024, 03/06, 04/27/2023, Additional history exists Depression Screening 07/10/2025 07/10/2024, 03/28/2024, 07/07/2023, Additional history exists Fall Risk Assessment 07/10/2025 07/10/2024, 03/28/2024, 12/12/2023, Additional history exists Osteoporosis Screening-Bone Density Scan 07/10/2025 07/15/2015, 07/15/2015 Postponed from 07/15/2017 (Patient declined, but will receive in the future) Well Visit 65+ 07/10/2025 07/10/2024, 10/2022, 11/02/2022, Additional history exists Hepatitis C Screening Completed 09/16/2017 Breast Cancer Screening-Mammogram Discontinued 05/12/2018, 05/18/2017, 05/12/2017, Additional history exists Pneumococcal vaccine 65+ Completed 020, 11/28/2018, 09/05/2012, Additional history exists Colon Cancer Screening-CT Colonography Discontinued 10/20/2020, 08/14/2015, 08/14/2015, Additional history exists Colon Cancer Screening-Colonoscopy Discontinued 10/20/2020, 08/14/2015, 08/14/2015, Additional history exists Colon Cancer Screening-DNA Stool Discontinued 10/20/2020, 08/14/2015, 08/14/2015, Additional history exists Colon Cancer Screening-FIT Discontinued 10/20, 08/14/2015, 08/14/2015, Additional history exists Colon Cancer Screening-FOBT Discontinued 10/20/2020, 08/14/2015, 08/14/2015, Additional history exists Colon Cancer Screening-Sigmoidoscopy Discontinued 10/20/2020, 08/14/2015, 08/14/2015, Additional history exists Colorectal Cancer Screening Discontinued Influenza Vaccine Completed 07/10/2024, , 06/14/2022, Additional history exists Medical Devices Implanted Type Area Ophthalmic Pathologist Device Identifier Shelf Expiration Date Model / Serial / Lot Angio Dynamics [id number] Xcela 8fr 1.6mm 1 Lumen Power Injectable Attach Catheter Fill - [id number] Implanted:Qty: 1 on 08/16/2018 at [facility] Catheter Right: Chest Angio Dynamics [id number] 04/17/2023 [id number] / / [id number] Knee Replacement Left: Knee Angio-Seal Evolution 6fr Vascular Closure [id number] - [id number] Implanted:Qty: 1 on 01/14/2022 by Venkat Kelsey MD at [facility] Partner [facility] 08/04/2022 [id number] / / [id number] Procedures Procedure Name Priority Date/Time Associated Diagnosis Comments EGFR Routine 07/05/2024 10:40 AM CDT Type 2 diabetes mellitus with hyperlipidemia (HCC) Atherosclerosis of [place] coronary artery of [place] heart without angina pectoris HEMOGLOBIN A1C Routine 07/05/2024 10:40 AM CDT Type 2 diabetes mellitus with hyperlipidemia (HCC) Atherosclerosis of [place] coronary artery of [place] heart without angina pectoris LIPID PANEL Routine 07/05/2024 10:40 AM CDT Type 2 diabetes mellitus with hyperlipidemia (HCC) Atherosclerosis of [place] coronary artery of [place] heart without angina pectoris ALBUMIN CREATININE RATIO, URINE Routine 03/26/2024 1:31 PM CDT Type 2 diabetes mellitus with hyperglycemia, without long-term current use of insulin (CMS/HCC) (HCC) COLONOSCOPY 10/20/2020 10:12 AM SCROLL SAW OPERATOR SCREENING MAMMOGRAM BILATERAL W FOREST Schedule Routine, Read Routine (OP Routine) 05/12/2018 2:08 PM CDT Encounter for screening mammogram for malignant neoplasm of breast HEPATITIS C ANTIBODY Routine Gen Lab 09/16/2017 3:32 PM SCROLL SAW OPERATOR from Last 3 Months or Most Recently [...] was last reviewed 2021. Testing performed by: [facility], [address] [place] [address]., [address] Blood 07/05/2024 10:4 0 AM CDT 07/05/2024 9:09 PM CDT us Teressa Bee NP LAB BLOOD ORDERABLES Final Result MARITZA MCGEE RIDDLE) [facility] [place] [address] * (ABNORMAL) Hemoglobin A1c (07/05/2024 10:40 AM CDT) Hgb A1C 6.6(H) 4.0 - 5.6 % Comment:Testing performed by : [facility], [address] [place] [address]., [address] Estimated Average Glucose 143 mg/dL MARITZA MCGEE (TK) Comment: The ADA recommends reporting an estimated Average Glucose (eAG) with all Hemoglobin A1c results using the equation derived from a study of 507 normal and diabetic adults. Minority populations were underrepresented and children were not included. (Diabetes Care 31:9111-9416, 2008). The eAG is not equivalent to a fasting glucose. Testing performed by: [facility], [address] [place] [address]., [address] Blood 07/05/2024 10:4 0 AM CDT 07/05/2024 8:16 PM CDT us Teressa Bee NP LAB BLOOD ORDERABLES Final Result MARITZA MCGEE (TK) 1 [facility] Department [place] [address] * (ABNORMAL) Lipid panel (07/05/2024 10:40 AM CDT) Cholesterol 203(H) 30 - 199 mg/dL Comment: [...] last revised on 2018. Testing performed by: [facility], [address] [place] [address], [place]., [address] Triglycerides 135 <=149 mg/dL MARITZA MCGEE (TK) [...] last revised on 2018. Testing performed by: [facility], [address] [place] [address]., [address] HDL 64 >=40 mg/dL MARITZA MCGEE (TK) [...] last revised on 2018. Testing performed by: [address] [address] LDL, calculated 115 <=129 mg/dL MARITZA MCGEE [...] NCEP Expert Panel. Circulation 2004;110:227 3. Abhinav Yang al. CURLY Cardiol. 2020 January 03;5(5):540-548. doi: 10.1001/[email or web address].2020.0013 Current Interpretive Data was last revised on 2024. Testing performed by: [address] [address] Non-HDL Cholesterol 139 mg/dL MARITZA MCGEE (TK) [...] last revised on 2018. Testing performed by: [address] [address] Chol/HDL ratio 3 ALICIA MCGEE (TK) Comment:Testing performed by : [address] [address] Blood 07/05/2024 10:4 0 AM CDT 07/05/2024 8:16 PM CDT Teressa Bee NP LAB BLOOD ORDERABLES Final Result MARITZA MCGEE (TK) 1 [facility] Department [place] [address] * (ABNORMAL) Albumin Creatinine Ratio, Urine (03/26/2024 1:31 PM CDT) Albumin Ur 87.1 mg/L Comment: Interpretive Data No reference range established. Current interpretive data was last revised 2019. Testing performed by: [address] [address] Creatinine Ur 189.3 mg/dL MARITZA MCGEE (TK) Comment: Interpretive Data No reference range established. Current interpretive data was last revised 2019. Testing performed by: [address] [address] Albumin Creatinine Ratio, Ur 46(H) 1 - 29 mg/g MARITZA MCGEE (TK) Comment:Testing performed by : [address] [address] Urine 03/26/2024 1:31 PM CDT 03/26/2024 8:48 PM CDT us Teressa Bee GRADUATE TEACHING ASSOCIATE LAB URINE ORDERABLES Final Result MARITZA MCGEE TK 1 [facility] [place] [address] * COLONOSCOPY (10/20/2020 10:12 AM SCROLL SAW OPERATOR) Anatomical Region Laterality Modality Other Narrative Procedure Note Ismael Johnson MD - 10/20/2020 10:12 AM CST [facility] Patient Name: Kimberly Campa Procedure Date: 10/20/2020 10:12 AM Date of : 1945 Admit Type: Outpatient Age: 75 Gender: Female Attending MD: Ismael Johnson M.D. Room: [facility] ENDOSCOPY ROOM 2 Note Status: Finalized Patient [...] scope was passed under direct vision. TheColonoscope [id number] was introduced through the anus and advanced [...] colon K64.9, Unspecified hemorrhoids CPT copyright 2019 [employer]. All rights reserved. The codes documented in this report are preliminary and upon assistant superintendent reviewmay be revised to meet current compliance requirements. Recognized by the [place] for promoting quality [...] breast. Scattered benign calcifications are again seen. Cortez Grossman MD IMG MAMMO PROCEDURES Saritha l Result * Hepatitis C antibody (09/16/2017 3:32 PM SCROLL SAW OPERATOR) Hep C Ab Nonreactive Nonreactive MARITZA BEJARANO Comment: Interpretive Data Positive and greyzone results should be confirmed by a molecular method. If positive or greyzone, a second separately collected sample should be submitted for Hepatitis C Virus RNA. Detection and Quantitation by Real-Time Reverse Commercial Announcer-PCR.Current Interpretive data was last revised on 2017. Blood specimen (specimen) 09/16/2017 3:32 PM SCROLL SAW OPERATOR 09/16/2017 3:50 PM SCROLL SAW OPERATOR Narrative MARITZA BEJARANO - 09/17/2017 9:10 AM SCROLL SAW OPERATOR Joaquina Nice MD LAB MICROBIOLOGY - GEN ERAL ORDERABLES Edited Result - Final MARITZA [facility] Department [place] [address] from Last 3 Months or Most Recently Relevant to Health Maintenance Insurance [facility] Member Subscriber Plan / Payer (Ef fective 2017-Present) Name:KIMBERLY CAMPA Relation to Subscriber:Self Name:Kimberly Campa Payer ID:[id number] (NAIC) Type:MEDICARE RISK OTHER Address: [address] [facility] MEDICARE [facility] Advance Directives For more information, please contact: [phone] * Full Code (Latest Code Status on [...] 9:31 PM 12/14/2018 7:05 PM Care Teams Automatic Cigar Wrapper Tender Relationship Specialty Start Date End Date [place] [address] PCP - General 10/14/17 Jacinto Wang MD [address] [place] [address] Referring Physician Gastroenterology 08/03/18 Eri Jacob MD [address] [place] [address] [address] [place] [address] Referring Physician Medical Oncology 08/15/18 Joaquina Nice MD [address] [facility] [address] [place] [address] Referring Physician Transplant Hepatology 11/04/18 Kishan John MD [address] [facility] [address] [place] [address] Radiation Oncologist Radiation Oncology 01/30/19 Sam Boogie MD [address] [place] [address] Psychiatry 02/19/19 Jersey Asher MD PhD [address] [place], [place] [id number] Radiation Oncologist Radiation Oncology 04/02/19 Venkat Kelsey MD [address] [place], [place] [id number] Consulting Physician Cardiology 01/15/22
--- OUTSIDE RECORDS SUMMARY | 2024-10-30 09:25 | XMS_ITS | Data Portability ---
Author Organization [facility] Address [address] [place] [address] Assessment No assessment recorded. Plan of Treatment Reminders Order Date Submit Date Provider Last Modified By Organization Details Last Modified Time Details Appointments None recorded. Lab biopsy, skin - Bx of the vulva [address] [facility], [address] [place] [address], [address], [place], [address], 7 17:39:07 Referral None recorded. Procedures None recorded. Surgeries None recorded. Imaging MAMMO, screening, bilateral 2016 017 BETTY Lenz Scheduling, [address] [facility] [place], [address], 7 09:11:57 Medication Orders estradiol 0.5 mg tablet 2016 017 [facility], [address] [place] [address], [address], 7 17:39:12 Patient TargetsNo targets recorded. Patient Instructions Encounter Date Encounter Id Patient Instructions Last Modified By Organization Details Last Modified Time 03/29/2016 [id number] Mammogram scheduled for next week. [facility] Not available 03/29/2016 17:05:53 Can have Estradiol 0.5 mg refills with negative mammogram. Discussed need for weight loss: Healthy eating and increased activity level. Considering volunteering. [facility] Not available 03/29/2016 17:05:53 04/13/2017 [id number] mammogram: about this test [facility] Not available 04/14/2017 09:32:29 Await test results. Make apt for mammogram susi. [facility] Not available 04/14/2017 17:36:45 Discussed the cause of her vulvar itching. Appears to be lichen sclerosis. We will call her with bx results and treat appropriately. Kimberly wants to continue estradiol 0.5 mg daily. She will get her mammogram and with a negative result, will send refill to her pharmacy. [facility] Not available 04/14/2017 17:36:15 Reason for Referral None Reported. Results Created Date Observation Date Name Description Value Unit Range Abnormal Flag Note LastModifiedBy Organization Detail LastModifiedTime 04/13/20 17 04/19/2017 patho logy study . COMMEFFIE T MATER IAL SUBMI TTED: . VULVA R BIOPS Y Not Available [facility] ([facility]) [address] [facility], [place], [address], 04/20/2017 07:14:33 04/13/2004/19/2017 patho logy study . COMMEFFEI T CLINI DON PROVI DED ICD-1 0: N90.9 Not Available [facility] ([facility]) [address] [facility], [place], [address], 04/20/2017 07:14:33 04/13/2004/19/2017 patho logy study . COMMEFFIE T DIAGN OSIS: STEPHANIE Charles, NO ANDREY FOWLER . MUR/0 2016 Not Available [facility] ([facility]) [address] [facility], [place], [address], 04/20/2017 07:14:33 04/13/20 17 04/19/2017 patho logy study . COMMEFFIE T LILIBETH COURTNEY D: . MAGNUS BARNHART MD, PATHO LOGIS T Not Available [facility] ([facility]) [address] [facility], [place], [address], 04/20/2017 07:14:33 04/13/20 17 04/19/2017 patho logy study . COMMEFFIE T GROSS DESCR IPTIO N: . SUBMI TTED IN FORMA ERENDIRA LABEL ED KIMBERLY [facility]PA DESIG NATED VULVA R BIOPS Y IS A FRAGM ENT OF CHILDERS TISSU E THAT MEASU RES 0.5 X 0.4 X 0.2 CM. IT IS SUBMI TTED RECEI JOSE IN A SINGL E CASSE TTE. XJW/D MA Not Available [facility] ([facility]) [address] [facility], [place], [address], 04/20/2017 07:14:33 04/13/20 17 04/19/2017 patho logy study . COMMEFFIE T PATHO LOGIS T PROVI DED ICD-1 0: N90.9 , L98.9 Not Available [facility] ([facility]) [address] [facility], [place], [address], 04/20/2017 07:14:33 04/13/20 17 04/19/2017 patho logy study . COMMEFFIE T CPT . 03374 1 Not Available [facility] ([facility]) [address] [facility], [place], [address], 04/20/2017 07:14:33 05/04/20 16 05/03/2016 MAMMO monet bilat eral No observ ation record ed. [facility] (Radiology) [address] [place] [address], [address], 05/04/2016 12:57:11 05/12/20 17 05/11/2017 MAMMO , scree yannick, bilat eral No observ ation record ed. [facility] Not Available 2016 16:57:51 05/18/20 17 05/11/2017 MAMMO , scree yannick, bilat eral No observ ation record ed. [facility] [address] [facility] , [place], [address], 05/18/2017 09:18:19 Result Notes None recorded. Problems Name Problem SNOMED Code Status Onset Date Resolution Date Notes Provider Name and Address Organization Details Recorded Time Menopausal flushing 342047245 Active Gwen Kim null, [place] [facility] 6 16:13:05 Pruritus of vagina 96285007 Active 017 Gwen [place] [facility] 7 15:08:33 Menopause present 690219713 Active 017 Zaynab Corado [facility] Attn: Accountin g,[address] [facility], [place], [address], [facility] 7 17:32:10 Problem Notes None recorded. Procedures Surgical History Date Name Laterality Status Provider Name and Address Organization Details Recorded Time 04/13/20 17 Vulvar Biopsy completed Zaynab Corado [facility] Attn: Accounting, [address] [facility], [place], [address], [facility] - [facility] 04/14/2017 17:29:30 05/03/20 16 Most Recent Mammogram completed Gwen SCHAFER - [facility] 04/13/2017 08:19:31 02/16/20 12 Date of Last Pap Smear completed Gwen Kim [place] - [facility] 10/01/2015 09:05:11 [place]ste[place]wen Kim [place] [facility] 03/29/2016 16:13:05 Orth[place] Gwen Biggss [place] [facility] 03/29/2016 16:13:05 Chole[place]wen [place] [facility] 03/29/2016 16:13:05 Breast Biopsy [place]wen [place] [facility] 03/29/2016 16:13:05 Other completed [place]wen Biggss [place] [facility] 03/29/2016 16:13:36 Xcapsl ctrc rmvl cplx wo ecp [place]wen [place] [facility] 04/13/2017 15:10:43 Carpal tunnel [place] [facility] 04/13/2017 15:10:56 Arthroplasty [place] [facility] 10/01/2015 09:05:11 Imaging Results Imaging Date Name Status LastModified by Organiz ation Details LastModified Time 05/03/2016 MAMMO, screening, bilateral completed mpass [facility] (Radiology) [address] [place], [address], 05/04/2016 12:57:11 05/11/2017 MAMMO, screening, bilateral completed mpass Information not available 05/12/2017 16:57:51 05/11/2017 [facility]AMMO, screening, [facility] [address] [place], [address], 05/18/2017 09:18:19 Procedure Notes None recorded. Medical Equipment None Reported. Allergies Allergen ID Allergen Name Allergen Category Reaction Reaction Severity Criticality Documentation Date Start Date Code Code System Note Provider Name and Address Organization Details Recorded Time 89896 Substance with sulfonami de structure and antibacte rial mechanism of action (substanc e) medicatio n Not available Not available Not available 10/01/2015 19443 8003 SNOMED Not Available Not Available Not Available 39511 Lipitor medicatio n Not available Not available Not available 10/01/2015 00038 5 RxNorm Not Available Not Available Not Available 71298 Compazine medicatio n Not available Not available Not available 10/01/2015 10505 6 RxNorm Not Available Not Available Not Available 53021 naproxen medicatio n Not available Not available Not available 10/01/2015 7258 RxNorm Not Available Not Available Not Available Medications Name Sig Start Date Stop Date Status Note LastModified by Organization Details LastModified Time albuterol sulfate 2.5 mg/3 mL (0.083 %) solution for nebulizatio n active Not Available Not Available Not Available trazodone 50 mg tablet active Not Available Not Available Not Available azithromyci n 250 mg tablet active Not Available Not Available Not Available hydrocodone 5 mg-acetamin ophen 325 mg tablet active Not Available Not Available No t Available prednisone 20 mg tablet active Not Available Not Available Not Available estradiol 0.05 mg/24 hr weekly transdermal patch TAKE ONE TABLET BY MOUTH EVERY DAY 04/13 completed Not Available Not Available Not Available acyclovir 400 mg tablet active Not Available Not Available Not Available olanzapine 2.5 mg tablet active Not Available Not Available Not Available tramadol 50 mg tablet active Not Available Not Available No t Available meloxicam 7.5 mg tablet active Not Available Not Available Not Available levothyroxi ne 100 mcg tablet active Not Available Not Available Not Available alprazolam 0.5 mg tablet active Not Available Not Available Not Available prednisolon e acetate 1 % eye drops,suspe nsion active Not Available Not Available Not Available temazepam 15 mg capsule active Not Available Not Available Not Available temazepam 30 mg capsule active Not Available Not Available Not Available meclizine 25 mg tablet active Not Available Not Available Not Available levothyroxi ne 125 mcg tablet active Not Available Not Available Not Available clotrimazol e-betametha sone 1 %-0.05 % topical cream APPLY TO THE AFFECTED AND SURROUNDI NG AREAS OF SKIN BY TOPICAL ROUTE 2 TIMES PER DAY IN THE MORNING AND EVENING FOR 2 WEEKS active Not Available Not Available No t Available estradiol 0.5 mg tablet TAKE ONE TABLET BY MOUTH EVERY DAY 2016 active Not Available Not Available Not Avai lable levofloxaci n 500 mg tablet active Not Available Not Available Not Available methylpredn isolone 4 mg tablets in a dose pack active Not Available Not Available Not Available fluoxetine 20 mg capsule active Not Available Not Available Not Available fluticasone propionate 50 mcg/actuati on nasal spray,suspe nsion active Not Available Not Available Not Available amoxicillin 875 mg-potassiu m clavulanate 125 mg tablet active Not Available Not Available Not Available Spiriva with HandiHaler 18 mcg and inhalation capsules active Not Available Not Available Not Available duloxetine 60 mg capsule,del ayed release active Not Available Not Available Not Available fenofibrate 160 mg tablet active Not Available Not Available Not Available gatifloxaci n 0.5 % eye drops active Not Available Not Available Not Available Breo Ellipta 100 mcg-25 mcg/dose powder for inhalation active Not Available Not Available N ot Available Breo Ellipta 200 mcg-25 mcg/dose powder for inhalation active Not Available Not Available N ot Available Vitals Date Recorded Body mass index (BMI) Body height Body weight Systolic blood pressure Diastolic blood pressure Provider Name and Address Organization Details Last Updated DateTime 03/29/2016 38.4 kg/m2 149.86 cm 28441.55 03 g 122 mm[Hg] 80 mm[Hg] Gwen Kim [facility] 6 16:13:05 Date Recorded Body height Body mass index (BMI) Body weight Systolic blood pressure Diastolic blood pressure Provider Name and Address Organization Details Last Updated DateTime 04/13/2017 152.4 cm 39.1 kg/m2 25369.47 g 118 mm[Hg] 76 mm[Hg] Gwen Biggss [facility] 7 15:13:13 Social History Question Answer Notes LastModified by Organizat ion Details LastModified Time Tobacco Smoking Status Never Smoker [facility] 03/29/2016 16:13:05 What Was The Date Of Your Most Recent Tobacco Screening? 04/13/2017 Information n ot available 03/29/2019 Sex: Unknown Functional Status None recorded. Mental Status None recorded. Family History Relationship Description Onset Age of this Age Resolved Age Notes LastModified by Organization Details LastModified Time Brother Malignant tumor of lung [email or web address] Not available 2015 16:13:05 Maternal Grandfather Malignant tumor of colon [email or web address] Not available 2015 16:13:05 Paternal Grandfather Family history of malignant neoplasm [email or web address] Not available 2015 16:13:05 Medical History Condition Response Anxiety Disorder Y Muscle, Joint, or Bone Problems Y Endometriosis Y Acid Reflux (GERD) Y Headaches/Migraines Y Depression Y Asthma Y Gynecological History Statement/Question Response If Post Menopausal, Age at Menopause 46 Sexually Active? N STIs/STDs N Date of Last Pap Smear 02/16/2012 Current Control Method Hysterectom y Most Recent Mammogram 05/03/2016 Obstetrics History GPAL:G 0 P 0 0 0 0 Past Encounters Encounter ID Performer Location Encounter Start Date Encounter Closed Date Diagnosis/Indication Diagnosis SNOMED-CT Code Diagnosis ICD10 Code Diagnosis Note [id number] Zaynab Corado [facility] ([address]) [address] [facility] [place] [address] 03/29/2016 15:45:37 03/29/2016 17:17:44 Gynecologic examination 41256466 Z01.259 [id number] [facility] [address] [facility] [place] [address] 04/13/2017 14:57:34 04/18/2017 12:26:34 Pruritus of vagina 76979022 L29.3 Gynecologi c examination 75471512 Z01.419 Screening mammography 24 859521 Z12.31 Disorder of vulva 605224 7 N90.9 Menopausal symptom 34253 002 N95.1 Health Concerns Section Related Observation LastModified by Organization Detai ls LastModified Time None Recorded Concern Status LastModified by Organization Details LastModified Time None Recorded Advance Directives Directive None Recorded Payers Encounter Date Sequence Insurance Name Policy Number Policy Javier Covered Member ID Javier Member ID Guarantor Name 03/29/2016 1 [facility] (MEDICARE REPLACEMENT/A DVANTAGE - HMO) [id number] Kimberly Campa [id number] Kimberly Campa 04/13/2017 1 [facility] (MEDICARE REPLACEMENT/A DVANTAGE - HMO) [id number] Kimberly Campa [id number] Kimberly Campa Notes Date Note Type Note Provider Name and Address Organization Details Recorded Time 03/29/2016 text/html Annual Multi Media Specialist Post-MenopausalRep orted bypatient.Menopaus al Symptoms:no menopausal symptoms; normal vaginal lubrication Vaginal Bleeding:history of menopause having occurred; no history of post menopausal bleeding Urinary Symptoms:no hematuria; no incontinence; no nocturia; no urinary frequency Vulva:no genital lesion; no vulvar atrophy Vagina:normal vaginal discharge; no vaginal atrophy Breast:no breast lump; no nipple discharge; no breast pain Sexual Complaints:no sexual complaints Psychological Symptoms:no depression; no anxiety Preventive Measures:encourage regular mammograms starting age 40; encourage self breast examination; encourage regular exercise; encourage no tobacco use; needs to schedule mammogram; history of recent colonoscopy [facility]ab Cordao [facility] Attn: Accounting,[address] [place], [address], [place] [facility] 03/29/2016 17:06:10 04/13/2017 text/html Annual Multi Media Specialist Post-MenopausalRep orted bypatient.Menopaus al Symptoms:no menopausal symptoms; normal vaginal lubrication Vaginal Bleeding:history of menopause having occurred; no history of post menopausal bleeding Urinary Symptoms:no hematuria; no incontinence; no nocturia; no urinary frequency Vulva:no genital lesion; no vulvar atrophy Vagina:normal vaginal discharge; no vaginal atrophy Breast:no breast lump; no nipple discharge; no breast pain Sexual Complaints:no sexual complaints Psychological Symptoms:no depression; no anxiety Preventive Measures:encourage regular mammograms starting age 40; encourage self breast examination; encourage regular exercise; encourage no tobacco use; needs to schedule mammogram; On a 10 year colonoscopy schedule.Vaginal/V ulvar ProblemReported bypatient.[facility] :[facility]:present for >1 month; Patient states problem has been present for 1 year Quality:itching Severity:severe Context:postmenopa usal; history of vaginal atrophy Aggravating Factors:none Associated Symptoms:no vaginal itching; no vaginal irritation; no vaginal pain; no vulvar swelling/erythema; no vulvar pain; no vulvar lesions; no pelvic pain; no dyspareunia; no dyruria; no fever; no abdominal pain;vulvar itching/irritation NATALIA Steward Attn: Accounting,[address] [place], [address], [facility] - [facility] 04/18/2017 09:29:25 OBGyn Episode No OBEpisode recorded.
--- OUTSIDE RECORDS SUMMARY | 2024-10-30 09:25 | XMS_ITS | Encounter Summary ---
Author Organization [facility] Healthcare Address [address] [place] [address] Care Team Providers Care Investor Name Role Phone Cortez Grossman MD Primary Care Provider [phone] Jacinto Wang MD Unavailable + Eri Jacob MD Unavailable Joaquina Nice MD Unavailable [phone] Kishan John MD Unavailable [phone] Sam Boogie MD Unavailable [phone] Jersey Asher MD PhD Unavailable + [phone] Venkat Kelsey MD Unavailable [phone] Brandie Ram LPN Unavailable [phone] Reason for Visit * Reason Onset Date Comments Scheduling Appointments 01/30/2021 no answe r to confirm dexa Encounter Details Date Type Department Care Team (Late st Contact Info) Description 01/30/2021 Telephone [facility] [address] [place] [address] Tamy Hopper RT Scheduling Appointments (no answer to confirm dexa) Social History Tobacco Use Types Packs/Day Years Used Date Smoking Tobacco: Former Cigarettes 963 - 1988 Smokeless Tobacco: Never Alcohol Use Standard Drinks/Week Comments No 0 (1 standard drink = 0.6 oz pur e alcohol) PHQ-2 Answer Date Recorded PHQ-2 Total Score (If total score is 3 or more points, staff should administer the PHQ-9) 0 09/30/2020 Comments No Sex and Gender Information Value Date Recorded Sex Assigned at Not on file 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 Gender Identity Not on file Sexual Orientation Not on file documented as of this encounter Plan of Treatment Not on file documented as of this encounter Visit Diagnoses Not on filedocumented in this encounter Additional Health Concerns Infection Onset Date Last Indicated Resolved Time COVID: Suspected 04/27/2023 04/27/2023 04/27/2023 4:40 PM CDT documented as of this encounter Care Teams Investor Relationship Specialty Start Date End Date Cortez Grossman MD [address] [place] [address] PCP - General 10/14/17 Jacinto Wang MD [address] [place] [address] Referring Physician Gastroenterology 08/03/18 Eri Jacob MD [address] [facility] [address] [place] [address] Referring Physician Medical Oncology 08/15/18 Joaquina Nice MD [address] [facility] [address] [place] [address] Referring Physician Transplant Hepatology 11/04/18 Kishan John MD [address] [facility] [address] [place], [place] [address] Radiation Oncologist Radiation Oncology 01/30/19 Sam Boogie MD [address] [address] [place] [address] Psychiatry 02/19/19 Jersey Asher MD PhD [address] [address] Radiation Oncologist Radiation Oncology 04/02/19 Venkat Kelsey MD [address] [address] Consulting Physician Cardiology 01/15/22 Brandie Ram, HUGO [address] [place] [address] [address] [place] [address] ACO Care Screen Printer Helper 01/18/22 01/27/22 documented as of this encounter
--- OUTSIDE RECORDS SUMMARY | 2024-10-30 09:25 | XMS_ITS | Encounter Summary ---
Author Organization [facility] Healthcare Address [address] [place] [address] Care Team Providers Care Theatre Director Name Role Phone Cortez Grossman MD Primary Care Provider [phone] Jacinto Wang MD Unavailable + Eri Jacob MD Unavailable Joaquina Nice MD Unavailable [phone] Kishan John MD Unavailable [phone] Sam Boogie MD Unavailable [phone] Jersey Asher MD PhD Unavailable + [phone] Venkat Kelsey MD Unavailable [phone] Brandie Ram LPN Unavailable [phone] Reason for Visit * Reason Onset Date Comments Scheduling Appointments 05/27/2021 Confirmi ng mammogram appt Encounter Details Date Type Department Care Team (Late st Contact Info) Description 05/27/2021 Telephone [facility] Imaging Center [address] [place] [address] Bryanna Winslow RT Scheduling Appointments (Confirming mammogram appt) Social History Tobacco Use Types Packs/Day Years [...] on file 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 Gender Identity Not on file Sexual Orientation Not on file documented as of this encounter Plan of Treatment Not on file documented as of this encounter Visit Diagnoses Not on filedocumented in this encounter Additional Health Concerns Infection Onset Date Last Indicated Resolved Time COVID: Suspected 04/27/2023 04/27/2023 04/27/2023 4:40 PM CDT documented as of this encounter Care Teams Theatre Director Relationship Specialty Start Date End Date Cortez Grossman MD [address] [place] [address] PCP - General 10/14/17 Jacinto Wang MD [address] [place] [address] Referring Physician Gastroenterology 08/03/18 Eri Jacob MD [address] [place] [address] Referring Physician Medical Oncology 08/15/18 Joaquina Nice MD [address] [facility] [address] [place], [place] [address] Referring Physician Transplant Hepatology 11/04/18 Kishan John MD [address] [facility] [address] [place] [address] Radiation Oncologist Radiation Oncology 01/30/19 Sam Boogie MD [address] [facility] [address] [place] [address] Psychiatry 02/19/19 Jersey Asher MD PhD [address] [facility] [address] [place] [address] Radiation Oncologist Radiation Oncology 04/02/19 Venkat Kelsey MD [address] [facility] [address] [place] [address] Consulting Physician Cardiology 01/15/22 Brandie Ram, 4TH GRADE MATH TEACHER [address] [place] [address] [address] [place] [address] ACO Care Procurement Buyer 01/18/22 01/27/22 documented as of this encounter
--- OUTSIDE RECORDS SUMMARY | 2024-10-30 09:25 | XMS_ITS | Encounter Summary ---
Author Organization [facility] Healthcare Address [address] [place] [address] Care Team Providers Care Guitar Instructor Name Role Phone Cortez Grossman MD Primary Care Provider [phone] Jacinto Wang MD Unavailable + Eri Jacob MD Unavailable Joaquina Nice MD Unavailable [phone] Kishan John MD Unavailable [phone] Sam Boogie MD Unavailable [phone] Jersey Asher MD PhD Unavailable + [phone] eVnkat Kelsey MD Unavailable [phone] Brandie Ram LPN Unavailable [phone] Reason for Visit * Reason Onset Date Comments Scheduling Appointments 03/05/2021 no answe r to confirm dexa Encounter Details Date Type Department Care Team (Late st Contact Info) Description 03/05/2021 Telephone [facility] Imaging Center [address] [place] [address] Sarina Lechuga, RT Scheduling Appointments (no answer to confirm [...] on file 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 Gender Identity Not on file Sexual Orientation Not on file documented as of this encounter Plan of Treatment Not on file documented as of this encounter Visit Diagnoses Not on filedocumented in this encounter Additional Health Concerns Infection Onset Date Last Indicated Resolved Time COVID: Suspected 04/27/2023 04/27/2023 04/27/2023 4:40 PM CDT documented as of this encounter Care Teams Guitar Instructor Relationship Specialty Start Date End Date Cortez Grossman MD [address] [place] [id number] PCP - General 10/14/17 Jacinto Wang MD [address] [place] [id number] Referring Physician Gastroenterology 08/03/18 Eri Jacob MD [address] [facility] [address] [place] [address] Referring Physician Medical Oncology 08/15/18 Joaquina Nice MD [address] [facility] [address] [place], [place] [address] Referring Physician Transplant Hepatology 11/04/18 Kishan John MD [address] [facility] [address] [place] [address] Radiation Oncologist Radiation Oncology 01/30/19 Sam Boogie MD [address] [facility] [address] [place] [address] Psychiatry 02/19/19 Jersey Asher MD PhD [address] [facility] [address] [place] [address] Radiation Oncologist Radiation Oncology 04/02/19 Venkat Kelsey MD [address] [facility] [address] [place] [address] Consulting Physician Cardiology 01/15/22 Brandie Ram, SPECIAL FORCES SPECIALIST [address] [facility] [address] [place] [address] ACO Care Mortgage Or Loan Underwriter 01/18/22 01/27/22 documented as of this encounter
--- OUTSIDE RECORDS SUMMARY | 2024-10-30 09:25 | XMS_ITS | Encounter Summary ---
Author Organization [facility] Healthcare Address [address] [place] [address] Care Team Providers Care Automatic Spreader Operator Name Role Phone Cortez Grossman MD Primary Care Provider [phone] Jacinto Wang MD Unavailable + Eri Jacob MD Unavailable Joaquina Nice MD Unavailable [phone] Kishan John MD Unavailable [phone] Sam Boogie MD Unavailable [phone] Jersey Asher MD PhD Unavailable [phone] Venkat Kelsey MD Unavailable [phone] Brandie Ram LPN Unavailable [phone] Reason for Visit * Reason Onset Date Comments Scheduling Appointments 04/15/2021 no answe r to confirm dexa or mamm Encounter Details Date Type Department Care Team (Late st Contact Info) Description 04/15/2021 Telephone [facility] [address] [place] [address] Tamy Hopper RT Scheduling Appointments (no answer to confirm dexa or mamm) Social History Tobacco Use Types Packs/Day Years [...] on file Legal Sex Female 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[employer]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 Gender Identity Not on file Sexual Orientation Not on file documented as of this encounter Plan of Treatment Not on file documented as of this encounter Visit Diagnoses Not on filedocumented in this encounter Additional Health Concerns Infection Onset Date Last Indicated Resolved Time COVID: Suspected 04/27/2023 04/27/2023 04/27/2023 4:40 PM CDT documented as of this encounter Care Teams Automatic Spreader Operator Relationship Specialty Start Date End Date Cortez Grossman MD [address] [place] [address] PCP - General 10/14/17 Jacinto Wang MD [address] [place] [address] Referring Physician Gastroenterology 08/03/18 Eri Jacob MD [address] [place] [address] Referring Physician Medical Oncology 08/15/18 Joaquina Nice MD [address] [facility] [address] [place] [address] Referring Physician Transplant Hepatology 11/04/18 Kishan John MD [address] [facility] [address] [place] [address] Radiation Oncologist Radiation Oncology 01/30/19 Sam Boogie MD [address] [facility] [address] [place] [address] Psychiatry 02/19/19 Jersey Asher MD PhD [address] [facility] [address] [place] [address] Radiation Oncologist Radiation Oncology 04/02/19 Venkat Kelsey MD [address] [facility] [address] [place] [address] Consulting Physician Cardiology 01/15/22 Brandie Ram, [employer] FEED MIXER [address] [facility] [address] [address] [place] [address] ACO Care Seasonal Tax Preparer 01/18/22 01/27/22 documented as of this encounter
--- OUTSIDE RECORDS SUMMARY | 2024-10-30 09:25 | XMS_ITS | Referral Summary ---
Author Organization [facility] Address [address] [facility] [place] [address] Care Team Providers Care Non Profit Director Name Role Phone Hector Jaramillo MD Unavailable Unavailable Jamaal Waters MD Unavailable [phone] Sam Boogie MD Unavailable [phone] Cortez Grossman MD Primary Care Provider [phone] Source Comments [facility],non-owned Affiliates and Associated Physician Practices is amultiple site organization consisting of ambulatory clinics and hospital sitesin [place], [place] and [place]. This disclosure is being madepursuant to the Care Everywhere program and may not contain all information available regarding this patient. Last updated 18.[facility] Allergies Active Allergy Reactions Criticality Noted Date Comments Adhesive Sensitivity Rash Low 04/23/2013 Compazine 12/19/2009 Lock jaw Atorvastatin Calcium Low 12/19/2009 Flu likesymptoms Naproxen Urticaria 12/19/2009 Sulfa Drugs Nausea and/or Vomiting 12/19/2009 Ezetimibe 12/19/2009 Flu like symptoms Medications * Be aware that medications may not be up to date on this document. Alwaysverify current medications with the patient. Medication Sig Dispensed Refills Start Date End Date Status olanzapine (ZYPREXA) 2.5 MG tablet Take 2.5 mg by mouth 2 times daily. At evening meal and HS prn Active DULoxetine (CYMBALTA) 60 MG capsule Take 60 mg by mouth once daily. Active FLUTICASONE PROPIONATE NA [place] into the nose 2 times daily. Active levothyroxine (SYNTHROID) 100 MCG tablet Take 100 mcg by mouth daily before breakfast. Active tiotropium (SPIRIVA HANDIHALER) 18 MCG inhalation capsuleIndications: DJD (degenerative joint disease) of knee Inhale 1 Cap by mouth once daily. Active albuterol-ipratropi um (COMBIVENT) 18-103 MCG/ACT inhalerIndications: DJD (degenerative joint disease) of knee Inhale 2 Puffs by mouth 4 times daily. Active traZODone (DESYREL) 50 MG tablet Take 50 mg by mouth at bedtime. Active acetaminophen (TYLENOL) 500 MG tabletIndications:L ow back pain Take 2 Tabs by mouth 3 times daily. Maximum allowable Acetaminophen amount = 4 Grams (4000 mg) / 24 hours. 07/24/2014 Active estradiol (ESTRACE) 0.5 MG tablet Take 0.5 mg by mouth once daily Active Nasal Nebulizers (NASONEB NEBULIZER STARTER) MISC Active FLUoxetine (PROZAC) 20 MG capsule 12/04/2015 Active BREO ELLIPTA 200-25 MCG/INH inhalation 6 10/22/2015 Active temazepam (RESTORIL) 15 MG capsule 12/12/2015 Active HYDROcodone-acetami nophen (NORCO) 5-325 MG tablet Take 1 Tab by mouth every 4 hours as needed for Pain 30 Tab 0 01/13/2016 Active ALPRAZolam (XANAX) 0.5 MG tabletIndications:S /P carpal tunnel release 1 12/08/2015 Active traMADol (ULTRAM) 50 MG tabletIndications:S /P carpal tunnel release 10/09/2015 Active Active Problems Problem Noted Date Diagnosed Date Depression 01/04/2011 Polyarthritis 12/19/2009 Overview (12/19/2009): Rf nml Insomnia 12/19/2009 Fibromyalgia 12/19/2009 Back pain 12/19/2009 DJD (degenerative joint disease) of knee 010 Overview (04/06/2011): 01/08/2010 bilateral knee 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 Synvisc soon Glaucoma 12/19/2009 Overview (12/19/2009): 12/19/2009 consider visit to eye doctor to evaluate glaucoma status and eye pain Sicca 12/19/2009 Social History Tobacco Use Types Packs/Day Years [...] Sign Reading Time Taken Comments Blood Pressure 110/67 01/13/2016 4:53 PM CDT Pulse 80 01/13/2016 4:53 PM CDT Temperature 36.6 C (97.8 F) 01/13/2016 4:53 PM CDT Respiratory Rate 18 01/13/2016 4:53 PM CDT Oxygen Saturation 95% 01/13/2016 4:53 PM CDT Inhaled Oxygen Concentration - - Weight 85.6 kg (188 lb 12.8 oz) 016 11:49 AM CDT Height 149.9 cm (4' 11 ) 01/13/2016 11: 49 AM CDT Body Mass Index 38.13 01/13/2016 11:49 AM CDT Functional Status Functional Status Response Date of Assess ment Is person deaf or have serious hearing difficult y? No 01/13/2016 Is person blind or have serious difficulty seein g? No 01/13/2016 Does person have serious dif ficulty walking/climbing stairs? No 01/13/2016 Does person have difficulty dressing/bathing? No 01/13/2016 Does person have difficulty doing errands alone? No 01/13/2016 Cognitive Status Response Date of Assessm ent Does person have difficulty concentrating/remembering/making decisions? No 01/13/2016 Plan of Treatment Not on file Medical Devices Implanted Type Area Presser Hand Device Identifier Shelf Expiration Date Model / Serial / Lot Luciano Bone [place] Hv Implanted:Qty: 1 on 04/23/2013 by [place]al Waters MD at [facility] Left: Knee [employer] 12/03/2014 [id number] / / [id number] Tibial Plate 63mm Implanted:Qty: 1 on 04/23/2013 by [place]al Waters MD at [facility] Left: Knee 04/04/2022 [id number] / / [id number] Vanguard Femoral 57.5mm Left Implanted:Qty: 1 on 04/23/2013 by [place]al Waters MD at [facility] Left: Knee 02/02/2023 [id number] / / [id number] Patella 28mm - X-Small Implanted:Qty: 1 on 04/23/2013 by [place]al Waters MD at [facility] Left: Knee 02/02/2015 [id number] / / [id number] Tibial Bearing 10mm X 63mm Implanted:Qty: 1 on 04/23/2013 by [place]al Waters MD at [facility] Left: Knee 11/02/2016 [id number] / / [id number] Administered Medications Advance Directives * FULL RESUSCITATION (Latest Code Status on File) Date Activated Date Inactivated Comments 04/23/2013 4:15 PM 04/27/2013 4:17 PM Care Teams Non Profit Director Relationship Specialty Start Date End Date [place] [address] PCP - General Internal Medicine 10/07/15 Hector Jaramillo MD Rheumatology 05/25/11 [place] [address] [place] [id number] Orthopedic Surgery 12/20/11 [place] [address] [place] [id number] Psychiatry 07/24/14
--- OUTSIDE RECORDS SUMMARY | 2024-10-30 09:25 | XMS_ITS | Clinical Summary ---
Author Organization [facility] Care Team Providers Care Quill Reamer Name Role Phone Cortez Grossman MD Primary Care Provider [phone] Allergies Active Allergy Reactions Criticality Noted Date Comments Prochlorperazine Maleate Hives,Rash Atorvastatin Other (see Comments) 02/13/2015 FLU LIKE SYMPTOMS Naproxen Diarrhea,Nausea,Vom iting Sulfa Antibiotics Diarrhea,Nausea,Vom iting Ezetimibe Other (see Comments) FLU LIKE SYMPTOMS Medications oxyCODONE-Aceta minophen 10-325 MG PO TABS Take by mouth as needed. Active estradiol (ESTRACE VAGINAL) 0.1 MG/GM VA CREA by Vaginal route as needed. Active traZODone 50 MG PO TABS Take by mouth daily. Active OLANZapine (ZYPREXA) 2.5 MG PO TABS Take by mouth 2 times daily. Active fluticasone-art anterol (BREO ELLIPTA) 100-25 MCG/INH IN AEPB take by inhalation 2 times daily. Active FLUoxetine (PROZAC) 40 MG PO CAPS Take by mouth daily. Active ciprofloxacin 500 MG PO TABS Take by mouth 2 times daily. Active temazepam 30 MG PO CAPS Take by mouth daily. Active Nasal Nebulizers (NASONEB NEBULIZER STARTER) XX MISC by Does not apply route. Active Azelastine-Flut icasone (DYMISTA) 137-50 MCG/ACT NA SUSP by Nasal route. Acti ve levothyroxine 100 MCG PO TABS Take by mouth. Active estradiol 0.5 MG PO TABS Take by mouth. Hazardous: Medication requires special safe handling and disposal. Active tiotropium (SPIRIVA HANDIHALER) 18 MCG IN CAPS take by inhalation. Active DULoxetine (CYMBALTA) 60 MG PO CPEP Take by mouth. Acti ve promethazine 25 MG PO TABS Take by mouth every 6 hours as needed for Nausea. Active Active Problems Problem Noted Date Diagnosed Date Anxiety state Arthropathy Chronic airway obstruction Overview (02/13/2015): WEARS OXYGEN AT NIGHT Depressive disorder Esophageal reflux Myalgia and myositis Immunizations Immunization Administration Dates Next Due Influenza Vaccine greater than 3 yrs 09/05/2011 Pneumococcal Vaccine Adult - 23 Valent 2 TD VACCINE 09/05/2007 Social History Tobacco Use Types Packs/Day Years Used Date Smoking Tobacco: Never Assessed Comments No Sex and Gender Information Value Date Recorded Sex Assigned at Not on file Legal Sex Female 12:51 PM CDT Gender Identity Not on file Sexual Orientation Not on file Plan of Treatment Health Maintenance Due Date Last Done Comments Hepatitis C Virus (HCV) Screening 1945 TdaP Immunization 1945 Zoster Immunization (1 of 2) 1996 Pneumococcal Immunization (5 0+ years) (2 of 2 - PCV) 09/05/2012 09/05/2011 Respiratory Syncytial Virus (RSV) Immunization (Adult) (1 - 1-dose 75+ series) 2021 Influenza Immunization (#1) 2024 09/05/2011 SARS-COV-2 Immunization ( season) 2024 DTaP/Tdap/Td Immunization Discontinued 09/05/2007 Pneumococcal Immunization Combined Discontinued 09/05/2011 DEXA Bone Density Discontinued 07/15/2015 Mammogram Discontinued 05/03/2016 Hepatitis B Immunization Aged Out No longer eligible based on patient's age to complete this topic Meningococcal Immunization (ACWY) Aged Out No longer eligible based on patient's age to complete this topic Rotavirus Immunization Aged Out No lo nger eligible based on patient's age to complete this topic Procedures Procedure Name Priority Date/Time Associated Diagnosis Comments CINDY SCREENING BILATERAL DIGITAL W CAD Routine 05/03/2016 3:26 PM CDT Encounter for screening mammogram for breast cancer [facility] BONE DENSITOMETRY AXIAL SKELETON Routine 07/15/2015 4:02 PM TAX ADJUSTER Symptomatic States Associated With Artificial Menopause from Last 3 Months or Most Recently Relevant to Health Maintenance Results * CINDY SCREENING BILATERAL DIGITAL W CAD (05/03/2016 3:26 PM CDT) Anatomical Region Laterality Modality breast Bilateral Mammography 05/03/2016 3:17 PM CDT Narrative 05/04/2016 7:23 AM CDT - CINDY SCREENING BILATERAL DIGITAL W CAD BILATERAL DIGITAL SCREENING MAMMOGRAM WITH CAD WITH MEDIOLATERAL OBLIQUE CRANIOCAUDAL: 05/03/2016 The study was acquired using digital technology and interpreted from soft copy. Current study was also evaluated with ICAD version 7.2. CLINICAL: Routine screening. Patient has no complaints. No personal history of cancer. No family history of breast cancer. COMPARISONS: Comparison is made to exams dated: 03/26/2015, 05/31/2013, and 02/23/2012 [facility]. BREAST TISSUE: The tissue of both breasts is heterogeneously dense. This may lower the sensitivity of mammography. FINDINGS: There is a stable benign mass in the right breast. There also is a biopsy clip in the right breast. No significant masses, calcifications, or other findings are seen in either breast. There has been no significant interval change. IMPRESSION: BI-RAD 2 BENIGN There is no mammographic evidence of malignancy. A 1 year screening mammogram is recommended. The patient has been or will be contacted. The patient will be entered into a reminder system with a target due date of 1 year for her next screening exam. Electronically signed by: Edda Patel M.D. pw/:05/03/2016 16:02:09 Program Director/Air Personality: Paz Goodrich(Johanny), [facility] letter sent: Normal Exam Reading location: [facility] BI-RADS: 2 Benign Procedure Note Edda Patel MD - 05/04/2016 - CINDY SCREENING BILATERAL DIGITAL W CAD BILATERAL DIGITAL SCREENING MAMMOGRAM WITH CAD WITH MEDIOLATERAL OBLIQUE CRANIOCAUDAL: 05/03/2016 The study was acquired using digital technology and interpreted from soft copy. Current study was also evaluated with ICAD version 7.2. CLINICAL: Routine screening. Patient has no complaints. No personal history of cancer. No family history of breast cancer. COMPARISONS: Comparison is made to exams dated: 03/26/2015, 05/31/2013, and 02/23/2012 [facility]. BREAST TISSUE: The tissue of both breasts is heterogeneously dense. This may lower the sensitivity of mammography. FINDINGS: There is a stable benign mass in the right breast. There also is a biopsy clip in the right breast. No significant masses, calcifications, or other findings are seen in either breast. There has been no significant interval change. IMPRESSION: BI-RAD 2 BENIGN There is no mammographic evidence of malignancy. A 1 year screening mammogram is recommended. The patient has been or will be contacted. The patient will be entered into a reminder system with a target due date of 1 year for her next screening exam. Electronically signed by: Edda Patel M.D. pw/:05/03/2016 16:02:09 Program Director/Air Personality: Paz Goodrich(Johanny), [facility] letter sent: Normal Exam Reading location: [facility] BI-RADS: 2 Benign Zaynab Corado APRN, JOHN IMG MAMMO ORDERABLES Fi nal Result * CINDY BONE DENSITOMETRY AXIAL SKELETON (07/15/2015 4:02 PM TAX ADJUSTER) Anatomical Region Laterality Modality BODY N/A Other 07/16/2015 10:2 1 AM TAX ADJUSTER Impressions 07/16/2015 10:24 AM TAX ADJUSTER IMPRESSION: Low bone mass as per left femoral neck. There is increased risk for fracture based on bone mass and other risk factors using FRAX calculation as detailed above. Bone mineral density: Normal (T-score above or = -1.0) Low bone mass (T-score between -1.0 and -2.5) replaces the previously used term osteopenia Osteoporosis (T-score = or below -2.5) Medical evaluation for secondary causes of low bone mineral density may be appropriate. FRAX is a World Health Organization validated fracture risk assessment tool that calculates a person's 10 year probability of a major osteoporosis related fracture and hip fracture. According to the National Osteoporosis Foundation guidelines, postmenopausal women and men age 50 or older with low bone mass and a 10 year probability of a major osteoporosis related fracture = or greater than 20% or a 10 year probability of a hip fracture = or greater than 3% should be considered for treatment. For further information, including treatment recommendations, please refer to the 2013 ISCD Official Positions (http://www.iscd.org) and the NOF's Clinician's Guide to Prevention and Treatment of Osteoporosis (http://www.nof.org/professionals/clinical-guidelines) Narrative 07/16/2015 10:24 AM TAX ADJUSTER HISTORY: 69 year old postmenopausal female with given history of Perimenopausal disorder unspecified Current Height: 59.5 inches Maximum Height: 61 inches Weight: 180 pounds RISK FACTORS: Fractured left ankle and foot as adult that was not result of significant trauma. No history of parental hip fracture, smoking, rheumatoid arthritis, secondary osteoporosis, or drinking more than 3 alcoholic drinks per day. The patient has had a history of glucocorticoid use but not currently. Previous bone density test in 2008. Left knee replacement. No roasterman antacid use. The patient has taken the following medications: Multivitamin and vitamin D daily. The patient has the following medical conditions: Asthma and hyperthyroidism. Patient does not performed weightbearing exercise regularly. Patient does consume dairy products and caffeinated beverages. COMPARISON(S): DEXA from 02/18/2011 showed normal bone mineral density TRACK DRESSER/MODEL: [employer] (S/N [id number]) FINDINGS: AP lumbar spine L1-L4 Total BMD is 1.22 a g/bh4Y-thxkk is 0.3 Previously 1.270 g/cm2 Left Hip Total BMD is 1.013 g/qm6D-ilspq is 0.0 Previous, 1.062 g/cm2 Neck BMD is 0.877 g/mz0Q-jxugs is -1.2 Previous 0.954 g/cm2 Left hip FRAX: Risk factors include glucocorticoid use in adult fracture. 10-year probability of major osteoporotic fracture is 20.6% and hip fracture is 2.3%. Abdifatah Paiz M.D. THIS IS AN ELECTRONICALLY VERIFIED REPORT 07/16/2015 10:21 AM: Abdifatah Paiz M.D. Radiologist ANTONINA:antonina HARPER Procedure Note Abdifatah Paiz MD - 07/16/2015 HISTORY: 69 year old postmenopausal female with given history of Perimenopausal disorder unspecified Current Height: 59.5 inches Maximum Height: 61 inches Weight: 180 pounds RISK FACTORS: Fractured left ankle and foot as adult that was not result of significant trauma. No history of parental hip fracture, smoking, rheumatoid arthritis, secondary osteoporosis, or drinking more than 3 alcoholic drinks per day. The patient has had a history of glucocorticoid use but not currently. Previous bone density test in 2008. Left knee replacement. No skilled nursing antacid use. The patient has taken the following medications: Multivitamin and vitamin D daily. The patient has the following medical conditions: Asthma and hyperthyroidism. Patient does not performed weightbearing exercise regularly. Patient does consume dairy products and caffeinated beverages. COMPARISON(S): DEXA from 02/18/2011 showed normal bone mineral density TRACK DRESSER/MODEL: [employer] (S/N [id number]) FINDINGS: AP lumbar spine L1-L4 Total BMD is 1.22 a g/rh8F-mwask is 0.3 Previously 1.270 g/cm2 Left Hip Total BMD is 1.013 g/ie4M-nadjc is 0.0 Previous, 1.062 g/cm2 Neck BMD is 0.877 g/mx6U-uwwjm is -1.2 Previous 0.954 g/cm2 Left hip FRAX: Risk factors include glucocorticoid use in adult fracture. 10-year probability of major osteoporotic fracture is 20.6% and hip fracture is 2.3%. Abdifatah Paiz M.D. THIS IS AN ELECTRONICALLY VERIFIED REPORT 07/16/2015 10:21 AM: Abdifatah Paiz M.D. Radiologist ANTONINA:antonina HARPER IMPRESSION: Low bone mass as per left femoral neck. There is increased risk for fracture based on bone mass and other risk factors using FRAX calculation as detailed above. Bone mineral density: Normal (T-score above or = -1.0) Low bone mass (T-score between -1.0 and -2.5) replaces the previously used term osteopenia Osteoporosis (T-score = or below -2.5) Medical evaluation for secondary causes of low bone mineral density may be appropriate. FRAX is a World Health Organization validated fracture risk assessment tool that calculates a person's 10 year probability of a major osteoporosis related fracture and hip fracture. According to the National Osteoporosis Foundation guidelines, postmenopausal women and men age 50 or older with low bone mass and a 10 year probability of a major osteoporosis related fracture = or greater than 20% or a 10 year probability of a hip fracture = or greater than 3% should be considered for treatment. For further information, including treatment recommendations, please refer to the 2013 ISCD Official Positions (http://www.iscd.org) and the NOF's Clinician's Guide to Prevention and Treatment of Osteoporosis (http://www.nof.org/professionals/clinical-guidelines) Rosmery Hardy MD IMG DEXA ORDERABLES Final Re sult from Last 3 Months or Most Recently Relevant to Health Maintenance Insurance MEDICARE C [facility] on file Care Teams Quill Reamer Relationship Specialty Start Date End Date Cortez Grossman [place] [address] PCP - General Internal Medicine 05/03/16
--- OUTSIDE RECORDS SUMMARY | 2024-10-30 09:25 | XMS_ITS | Clinical Summary ---
Author Organization [facility] Address [address] [place] [address] Care Team Providers Care Health Information Specialist Name Role Phone Hector Jaramillo MD Unavailable Unavailable Jamaal Waters MD Unavailable [phone] Sam Boogie MD Unavailable [phone] Cortez Grossman MD Primary Care Provider [phone] Source Comments [facility],non-owned Affiliates and Associated Physician Practices is amultiple site organization consisting of ambulatory clinics and hospital sitesin [place], [place], [place] and [place]. This disclosure is being madepursuant to the Care Everywhere program and may not contain all information available regarding this patient. Last updated 18.[facility] Allergies Active Allergy Reactions Criticality Noted Date [...] mouth once daily. Active FLUTICASONE PROPIONATE NA [place] into the nose 2 times daily. Active [...] glaucoma status and eye pain [place] 12/19/2009 Family History Medical History Relation Name Comments Arthritis - Osteo Father CAD (Coronary Artery Disease) Father Arthritis - Osteo Maternal Grandmother Diabetes Maternal Grandmother Arthritis - Osteo Mother CAD (Coronary Artery Disease) Mother Arthritis - Osteo Paternal Grandmother Diabetes Paternal Grandmother Relation Name Status Comments Brother Alive Father Maternal Grandmother Mother Alive Paternal Grandmother Social History Tobacco Use Types Packs/Day Years [...] Mass Index 38.13 01/13/2016 11:49 AM CDT Plan of Treatment Health Maintenance Due Date Last Done Comments BONE DENSITY TESTING 1945 HEPATITIS C SCREENING 10/14/1964 DTAP/TDAP/TD VACCINES (1 - Tdap) 1965 PNEUMOCOCCAL VACCINE 50+ (1 of 1 - PCV) 1996 ZOSTER VACCINE (1 of 2) 1996 Respiratory Syncytial Virus (RSV) Vaccine Pt: or over 60 yrs (1 - 1-dose 75+ series) 2021 COVID-19 VACCINE (1 - 2023-2 5 season) 2024 INFLUENZA VACCINE (#1) 2024 DEPRESSION SCREENING 09/05/2024 MEDICARE AWV CALENDAR YEAR 2024 HEPATITIS B VACCINE Aged Out No longe r eligible based on patient's age to complete this topic HIB VACCINE Aged Out No longer eligi ble based on patient's age to complete this topic HPV VACCINE Aged Out No longer eligi ble based on patient's age to complete this topic MENINGOCOCCAL (Group B) VACCINE Aged Out No longer eligible based on patient's age to complete this topic MENINGOCOCCAL VACCINE Aged Out No yovani ileana eligible based on patient's age to complete this topic Medical Devices Implanted Type Area Neurosurgical Physician Assistant Device Identifier Shelf Expiration Date Model / Serial / Lot Luciano Bone [place] Hv Implanted:Qty: 1 on 04/23/2013 by Jamaal Waters MD at [facility] Left: Knee [employer] 12/03/2014 [id number] / / [id number] Tibial Plate 63mm Implanted:Qty: 1 on 04/23/2013 by Jamaal Waters MD at [facility] Left: Knee 04/04/2022 [id number] / / [id number] Vanguard Femoral 57.5mm Left Implanted:Qty: 1 on 04/23/2013 by Jamaal Waters MD at [facility] Left: Knee 02/02/2023 [id number] / / [id number] Patella 28mm - X-Small Implanted:Qty: 1 on 04/23/2013 by Jamaal Waters MD at [facility] Left: Knee 02/02/2015 [id number] / / [id number] Tibial Bearing 10mm X 63mm Implanted:Qty: 1 on 04/23/2013 by Jamaal Waters MD at [facility] Left: Knee 11/02/2016 [id number] / / [id number] Advance Directives * FULL RESUSCITATION (Latest Code Status on File) Date Activated Date Inactivated Comments 04/23/2013 4:15 PM 04/27/2013 4:17 PM Care Teams Health Information Specialist Relationship Specialty Start Date End Date Cortez Grossman MD [address] [place] [id number] PCP - General Internal Medicine 10/07/15 Hector Jaramillo MD Rheumatology 05/25/11 [place] [address] [place] [address] Orthopedic Surgery 12/20/11 [place] [address] [facility] [place] [address] Psychiatry 07/24/14
--- OUTSIDE RECORDS SUMMARY | 2024-10-30 09:25 | XMS_ITS | Patient Health Summary ---
Author Organization [facility] Address [address] [place] [address] Care Team Providers Care Marklogic Developer Name Role Phone Hector Jaramillo MD Unavailable Unavailable Jamaal Waters MD Unavailable [phone] Sam Boogie MD Unavailable [phone] Cortez Grossman MD Primary Care Provider [phone] Note from [facility],non-owned Affiliates and Associated Physician Practices is amultiple site organization consisting of ambulatory clinics and hospital sitesin [place], [place], [place] and [place]. This disclosure is being madepursuant to the Care Everywhere program and may not contain all information available regarding this patient. Last updated 18.[facility] Allergies * Adhesive Sensitivity(Rash) -Low Criticality * Compazine(Lock jaw) * Atorvastatin Calcium(Flu likesymptoms) -Low Criticality * Naproxen(Urticaria) * Sulfa Drugs(Nausea and/or Vomiting) * Ezetimibe(Flu like symptoms) Medications * Be aware that medications may not be up to date on this document. Alwaysverify current medications with the patient. * olanzapine (ZYPREXA) 2.5 MG tablet Take 2.5 mg by mouth 2 times daily. At evening meal and HS prn * DULoxetine (CYMBALTA) 60 MG capsule Take 60 mg by mouth once daily. * FLUTICASONE PROPIONATE NA [place] into the nose 2 times daily. * levothyroxine (SYNTHROID) 100 MCG tablet Take 100 mcg by mouth daily before breakfast. * tiotropium (SPIRIVA HANDIHALER) 18 MCG inhalation capsule Inhale 1 Cap by mouth once daily. * albuterol-ipratropium (COMBIVENT) 18-103 MCG/ACT inhaler Inhale 2 Puffs by mouth 4 times daily. * traZODone (DESYREL) 50 MG tablet Take 50 mg by mouth at bedtime. * acetaminophen (TYLENOL) 500 MG tablet(Started 07/24/2014) Take 2 Tabs by mouth 3 times daily. Maximum allowable Acetaminophen amount = 4 Grams (4000 mg) / 24hours. * estradiol (ESTRACE) 0.5 MG tablet Take 0.5 mg by mouth once daily * Nasal Nebulizers (NASONEB NEBULIZER STARTER) MISC * FLUoxetine (PROZAC) 20 MG capsule(Started 12/04/2015) * BREO ELLIPTA 200-25 MCG/INH inhalation(Started 10/22/2015) 6 refills left * temazepam (RESTORIL) 15 MG capsule(Started 12/12/2015) * HYDROcodone-acetaminophen (NORCO) 5-325 MG tablet(Started 01/13/2016) Take 1 Tab by mouth every 4 hours as needed for Pain * ALPRAZolam (XANAX) 0.5 MG tablet(Started 12/08/2015) 1 refill left * traMADol (ULTRAM) 50 MG tablet(Started 10/09/2015) Active Problems Problem Noted Date Diagnosed Date Depression 01/04/2011 Polyarthritis 12/19/2009 Insomnia 12/19/2009 Fibromyalgia 12/19/2009 Back pain 12/19/2009 DJD (degenerative joint disease) of knee 010 Glaucoma 12/19/2009 Sicca 12/19/2009 Social History Tobacco Use Types [...] Mass Index 38.13 01/13/2016 11:49 AM CDT Medical Devices Implanted Type Area Mechanical Product Design Engineer Device Identifier Shelf Expiration Date Model / Serial / Lot Luciano Bone Franklin Hv Implanted:Qty: 1 on 04/23/2013 by Jamaal Waters MD at [facility] Left: Knee [employer] 12/03/2014 [id number] / / [id number] Tibial Plate 63mm Implanted:Qty: 1 on 04/23/2013 by Jamaal Waters MD at [facility] Left: Knee 04/04/2022 [id number] / / [id number] Vanguard Femoral 57.5mm Left Implanted:Qty: 1 on 04/23/2013 by Jamaal Waters MD at [facility] Left: Knee 02/02/2023 [id number] / / [id number] Patella 28mm - X-Small Implanted:Qty: 1 on 04/23/2013 by Jamaal Waters MD at [facility] Left: Knee 02/02/2015 [id number] / / [id number] Tibial Bearing 10mm X 63mm Implanted:Qty: 1 on 04/23/2013 by Jamaal Waters MD at [facility] Left: Knee 11/02/2016 [id number] / / [id number] Procedures * Navarino Block(Performed 01/13/2016) * RELEASE CARPAL TUNNEL(Performed 01/13/2016) * Ludin Block(Performed 11/25/2015) * RELEASE CARPAL TUNNEL(Performed 11/25/2015) * XR THORACIC SPINE 2VW(Performed 01/13/2015) Performed for Back pain * XR LUMBAR SPINE 2 OR 3VW(Performed 01/13/2015) Performed for Back pain * NEUTROPHIL CYTOPLASMIC ANTIBODY(Performed 01/13/2015) Performed for Sinusitis, acute * C-REACTIVE PROTEIN(Performed 01/13/2015) Performed for Sinusitis, acute * COMPREHENSIVE METABOLIC PANEL(Performed 01/13/2015) Performed for Sinusitis, acute * CBC W AUTO DIFFERENTIAL(Performed 01/13/2015) Performed for Sinusitis, acute * EXCISION BURSA PREPATELLAR(Performed 01/10/2014) Performed for Lipoma Of Unspecified Site * BASIC METABOLIC PANEL (CALCIUM TOTAL)(Performed 01/10/2014) Performed for Preop examination * EKG 12-LEAD(Performed 01/10/2014) Performed for Preop examination * CARDIAC STRESS TEST ORDER(Performed 04/29/2013) * LAB RESULTS ORDER(Performed 04/29/2013) * CARDIAC RHYTHM STRIP ORDER(Performed 04/29/2013) * IMAGING/RADIOLOGY/XRAY RESULTS ORDER(Performed 04/28/2013) * TROPONIN I(Performed 04/25/2013) * BLOOD GASES ARTERIAL POCT(Performed 04/25/2013) * BLOOD GASES ART (ISTAT)(Performed 04/25/2013) * VAS BILATERAL VENOUS DUPLEX LE(Performed 04/25/2013) Performed for SOB (shortness of breath) * CT ANGIO CHEST PULM EMBOLISM(Performed 04/25/2013) Performed for SOB (shortness of breath) * TROPONIN I(Performed 04/25/2013) * XR CHEST 1VW PORTABLE(Performed 04/25/2013) Performed for SOB (shortness of breath) * EKG 12-LEAD(Performed 04/25/2013) Performed for Paroxysmal atrial tachycardia * BASIC METABOLIC PANEL (CALCIUM TOTAL)(Performed 04/25/2013) * HGB HCT PANEL(Performed 04/25/2013) * HGB HCT PANEL(Performed 04/24/2013) * SPINAL BLOCK(Performed 04/23/2013) * ARTHROPLASTY TOTAL KNEE(Performed 04/23/2013) Performed for Osteoarthrosis, Unspecified Whether Generalized Or Localized, Lower Leg * CULTURE MSSA/MRSA(Performed 03/30/2013) Performed for Preoperative examination * EKG 12-LEAD(Performed 03/30/2013) Performed for Preoperative examination * XR KNEE BILAT 2VW OR LESS(Performed 02/06/2013) Performed for DJD (degenerative joint disease) of knee * ERYTHROCYTE SEDIMENTATION RATE(Performed 08/20/2011) Performed for Polyarthritis * C-REACTIVE PROTEIN(Performed 08/20/2011) Performed for Polyarthritis * LAB RESULTS ORDER(Performed 02/18/2011) * US EXTREMITY RIGHT COMP JOINT(Performed 02/15/2011) Performed for Hand pain * US EXTREMITY LEFT COMP JOINT(Performed 02/15/2011) Performed for Hand pain * ASAD W REFLX (POSITIVE)(Performed 02/15/2011) Performed for Polyarthritis * XR KNEE RIGHT 2VW OR LESS(Performed 02/08/2011) Performed for Knee pain, Polyarthritis * XR KNEE LEFT 2VW OR LESS(Performed 02/08/2011) Performed for Knee pain, Polyarthritis * C-REACTIVE PROTEIN(Performed 01/04/2011) Performed for Polyarthritis * ERYTHROCYTE SEDIMENTATION RATE(Performed 01/04/2011) Performed for Polyarthritis * C-REACTIVE PROTEIN(Performed 08/20/2010) Performed for Pain in joint, multiple sites * ERYTHROCYTE SEDIMENTATION RATE(Performed 08/20/2010) Performed for Pain in joint, multiple sites * C-REACTIVE PROTEIN(Performed 03/27/2010) Performed for Polyarthritis, Infectious Folliculitis * LYME DISEASE AB REFLEX WB(Performed 03/27/2010) Performed for Polyarthritis, Infectious Folliculitis * HLA TYPING B27(Performed 01/02/2010) Performed for Polyarthritis, Back Pain * MARCIN STAINING PATTERNS REFLEXED(Performed 12/19/2009) * C-REACTIVE PROTEIN(Performed 12/19/2009) * TSH(Performed 12/19/2009) Performed for Fibromyalgia * ANTINUCLEAR ANTIBODIES, IFA(Performed 12/19/2009) Results * ANESTHESIA BLOCK PERF (01/13/2016 2:04 PM CDT) Kishan Rivers APRN-AUTOMATIC WASHER MECHANIC - 01/13/2016 2:04 PM CDT MARCOS Asencio 01/13/2016 2:04 PM Ludin Block Patient Location: OR Laterality: left Pre Procedure Preanesthetic Checklist: patient identified, IV checked, site marked, risks and benefits discussed, surgical consent verified, monitors and equipment checked, pre-op evaluation done, timeout performed, informed consent obtained and questions answered / anesthesia plan accepted Peripheral IV Cath for Block Block IV already in place: yes Procedure Tourniquet: forearm single Inflation Pressure: 250 Analgesic: lidocaine 0.5% MPF 30 ml Block Performed by: Eunice PERALTA Jamaal Waters MD GENERAL ANESTHESIA ORDERABLES * ANESTHESIA BLOCK PERF (11/25/2015 1:27 PM CDT) Narrative Asya Cronin APRN-AUTOMATIC WASHER MECHANIC - 11/25/2015 1:27 PM CDT Asya Cronin APRN-CRNA 11/25/2015 1:27 PM Navarino Block Patient Location: OR Laterality: right Pre Procedure Preanesthetic Checklist: patient identified, IV checked, site marked, risks and benefits discussed, surgical consent verified, monitors and equipment checked, pre-op evaluation done, timeout performed, informed consent obtained and questions answered / anesthesia plan accepted Peripheral IV Cath for Block Block IV already in place: yes Procedure Tourniquet: forearm single Inflation Pressure: 250 Arm Exsanguinated: yes Tourniquet Inflated: yes Pulses Checked: yes Drug Injected: yes Analgesic: lidocaine 0.5% MPF 30 ml Block Performed by: syed cronin Jamaal Waters MD GENERAL ANESTHESIA ORDERABLES * XR THORACIC SPINE 2 VW (01/13/2015 5:06 PM CDT) Anatomical Region Laterality Modality Spine Computed Radiogr aphy Narrative 01/14/2015 10:24 AM CDT Hector Jaramillo MD 01/14/2015 10:24 AM Thoracic and Lumbar spine Xrays: Degenerative disk disease and scoliosis T10-L2, Osteopenia Hector Jaramillo MD DIAGNOSTIC IMAGING O RDERABLES * XR LUMBAR SPINE 2 OR 3 VW (01/13/2015 5:06 PM CDT) Anatomical Region Laterality Modality Spine Computed Radiogr aphy Narrative 01/14/2015 10:24 AM CDT Hector Jaramillo MD 01/14/2015 10:24 AM Thoracic and Lumbar spine Xrays: Degenerative disk disease and scoliosis T10-L2, Osteopenia Hector Jaramillo MD DIAGNOSTIC IMAGING O RDERABLES * (ABNORMAL) C-REACTIVE PROTEIN (01/13/2015 4:52 PM CDT) Only the most recent of6 resultswithin the time period is included. C-Reactive Protein 5.0(H) 0.0 - 4.9 mg/L [facility] INSURANCE BILL Blood specimen (specimen) BLOOD SPECIMEN / Unknown 01/13/2015 4:52 PM CDT 01/13/2015 7:34 PM CDT Narrative Resulting Agency Comment [facility] [phone] Hector Jaramillo MD LAB - CHEMISTRY BHAVNA CARRINGTON Performing Organization Address [facility] de Phone Number [facility] INSURANCE BILL * NEUTROPHIL CYTOPLASMIC ANTIBODY (01/13/2015 4:52 PM CDT) Cytoplasmic (C-ANCA) <1:20 Neg:<1:20 titer [facility] INSURANCE BILL p-ANCA Titer <1:20 Neg:<1:20 titer [facility] INSURANCE BILL Comment: The presence of positive fluorescence exhibiting P-ANCA or C-ANCA patterns alone is not specific for the diagnosis of Koko's Granulomatosis (WG) or microscopic polyangiitis. Decisions about treatment should not be based solely on ANCA IFA results. The International ANCA Group Consensus recommends follow up testing of positive sera with both ID-3 and MPO-ANCA enzyme immunoassays. As many as 5% serum samples are positive only by EIA. Ref. AM J Clin Pathol 1999;111:507-513. Atypical p-ANCA Titer <1:20 Neg:<1:20 titer [facility] INSURANCE BILL Comment: The atypical pANCA pattern has been observed in a significant percentage of patients with ulcerative colitis, primary sclerosing cholangitis and autoimmune hepatitis. Blood specimen (specimen) BLOOD SPECIMEN / Unknown 01/13/2015 4:52 PM CDT 01/13/2015 7:34 PM CDT Narrative Resulting Agency Comment [facility] [address] [place] [phone] Hector Jaramillo MD LAB - CHEMISTRY BHAVNA CARRINGTON Performing Organization Address [facility] Co de Phone Number [facility] INSURANCE BILL * CBC W AUTO DIFFERENTIAL (01/13/2015 4:52 PM CDT) WBC 8.6 3.4 - 10.8 x10E3/uL [facility] INSURANCE BILL RBC 4.92 3.77 - 5.28 x10E6/uL [facility] INSURANCE BILL Hemoglobin 14.0 11.1 - 15.9 g/dL [facility] INSURANCE BILL Hematocrit 40.5 34.0 - 46.6 % [facility] INSURANCE BILL MCV 82 79 - 97 fL [facility] INSURANCE BILL MCH 28.5 26.6 - 33.0 pg [facility] INSURANCE BILL MCHC 34.6 31.5 - 35.7 g/dL [facility] INSURANCE BILL RDW 14.6 12.3 - 15.4 % [facility] INSURANCE BILL Platelet Count 338 150 - 379 x10E3/uL [facility] INSURANCE BILL Granulocytes % 66 % [facility] INSURANCE BILL Lymphocytes % 24 % [facility]URANCE [facility] Monocytes % 6 % [facility] INSURANCE BILL Eosinophils % 3 % [facility]URANCE B[facility] Basophils % 1 % [facility] INSURANCE BILL Immature Cells NOT NEEDED [facility] INSURANCE BILL Comment:Ancillary determined the test is not needed Granulocytes Absolute 5.6 1.4 - 7.0 x10E3/uL [facility] INSURANCE BILL Lymphocytes Absolute 2.1 0.7 - 3.1 x10E3/uL [facility] INSURANCE BILL Monocytes Absolute 0.6 0.1 - 0.9 x10E3/uL [facility] INSURANCE BILL Eosinophils Absolute 0.3 0.0 - 0.4 x10E3/uL [facility] INSURANCE BILL Basophils Absolute 0.1 0.0 - 0.2 x10E3/uL [facility] INSURANCE BILL Immature Granulocytes 0 % [facility] INSURANCE BILL Immature Granulocytes Absolute 0.0 0.0 - 0.1 x10E3/uL [facility] INSURANCE BILL nRBC NOT NEEDED [facility] INSURANCE BILL Comment:Ancillary determined the test is not needed Comment Hematology NOT NEEDED [facility] INSURANCE BILL Comment:Ancillary determined the test is not needed Blood specimen (specimen) BLOOD SPECIMEN / Unknown 01/13/2015 4:52 PM CDT 01/13/2015 7:34 PM CDT Narrative Resulting Agency Comment [facility] [address] [phone] Hector Jaramillo MD LAB - HEMATOLOGY ORD ERABLES [facility] INSURANCE BILL * (ABNORMAL) COMPREHENSIVE METABOLIC PANEL (01/13/2015 4:52 PM CDT) Glucose 104(H) 65 - 99 mg/dL [facility] INSURANCE BILL BUN 10 8 - 27 mg/dL [facility] INSURANCE BILL Creatinine 0.74 0.57 - 1.00 mg/dL [facility] INSURANCE BILL eGFR by MDRD 84 >59 mL/min/1.7 3 [facility] INSURANCE BILL eGFR by MDRD 96 >59 mL/min/1.7 3 [facility] INSURANCE BILL BUN/Creatinine Ratio 14 11 - 26 [facility] INSURANCE BILL Sodium 137 134 - 144 mmol/L [facility] INSURANCE BILL Potassium 4.4 3.5 - 5.2 mmol/L [facility] INSURANCE BILL Chloride 96(L) 97 - 108 mmol/L [facility] INSURANCE BILL CO2 23 18 - 29 mmol/L [facility] INSURANCE BILL Calcium 9.7 8.7 - 10.3 mg/dL [facility] INSURANCE BILL Protein Total 6.6 6.0 - 8.5 g/dL [facility] INSURANCE BILL Albumin 4.5 3.6 - 4.8 g/dL [facility] INSURANCE BILL Globulin Total 2.1 1.5 - 4.5 g/dL [facility] INSURANCE BILL Albumin/Globulin Ratio 2.1 1.1 - 2.5 [facility] INSURANCE BILL Bilirubin Total 0.3 0.0 - 1.2 mg/dL [facility] INSURANCE BILL Alkaline Phosphatase 86 39 - 117 IU/L [facility] INSURANCE BILL AST 26 0 - 40 IU/L [facility] INSURANCE BILL ALT 22 0 - 32 IU/L [facility] INSURANCE BILL Blood specimen (specimen) BLOOD SPECIMEN / Unknown 01/13/2015 4:52 PM CDT 01/13/2015 7:34 PM CDT Narrative Resulting Agency Comment [facility] [address] [phone] Hector Jaramillo MD LAB - CHEMISTRY BHAVNA CARRINGTON [facility] INSURANCE BILL * (ABNORMAL) BASIC METABOLIC PANEL (CALCIUM TOTAL) (01/10/2014 11:31 AM CDT) Only the most recent of2 resultswithin the time period is included. Glucose 107(H) 74 - 106 mg/dL 01/10/2014 12:13 PM CDT [facility] Sodium 140 136 - 145 mmol/L 01/10/2014 12:13 PM CDT [facility] Potassium 4.1 3.5 - 5.1 mmol/L 01/10/2014 12:13 PM CDT [facility] Chloride 102 98 - 107 mmol/L 01/10/2014 12:13 PM CDT [facility] CO2 29 22 - 31 mmol/L 01/10/2014 12:13 PM CDT [facility] Calcium 9.2 8.5 - 10.1 mg/dL 01/10/2014 12:13 PM CDT [facility] Anion Gap 9 5 - 15 mmol/L 01/10/2014 12:13 PM CDT [facility] BUN 14 7 - 21 mg/dL 01/10/2014 12:13 PM CDT [facility] Creatinine 0.50 0.50 - 1.30 mg/dL 01/10/2014 12:13 PM CDT [facility] eGFR by MDRD >60 >60 mL/min/1.7 3m2 01/10/2014 12:13 PM CDT [facility] eGFR by MDRD >60 >60 mL/min/1.7 3m2 01/10/2014 12:13 PM CDT [facility] Blood BLOOD SPECIMEN / Unknown 01/10/2014 11:31 AM CDT 01/10/2014 11:52 AM CDT Davion Douglas MD LAB - CHEMISTRY BHAVNA CARRINGTON [facility] Organization Address City/State/ZIP Co de Phone Number [facility] [address] [place] [address] * EKG 12-LEAD (01/10/2014 10:27 AM CDT) Only the most recent of3 resultswithin the time period is included. Ventricular Rate 97 BPM [facility] Atrial Rate 97 BPM [facility] P-R Interval 150 ms [facility] QRS Duration ms 88 ms [facility] Q-T Interval ms 358 ms [facility] QTC Calculation (Bezet) 454 ms [facility] Calculated P Hanahan 45 degrees [facility] Calculated R [place] 1 degrees [facility] Calculated T [place] 55 degrees [facility] Interpretation EKG Normal sinus rhythm Cannot rule out Anterior infarct (cited on or before 25-APR-2013) Abnormal ECG When compared with ECG of 25-APR-2013 05:46, Questionable change in initial forces of Septal leads Nonspecific T wave abnormality no longer evident in Inferior leads Nonspecific T wave abnormality, improved in Anterolateral leads Confirmed by MD QUINTEN, MAGUE ([id number]) on 01/11/2014 9:05:33 AM [facility] MUSE 01/10/2014 10:2 7 AM CDT 01/11/2014 9:05 AM CDT Narrative [facility] - 01/11/2014 8:05 AM CDT Procedure Note Document, Scanned - 01/11/2014 7:45 AM CDT Transcriptions Document, Scanned - 01/11/2014 8:32 AM CDT Document, Scanned - 01/11/2014 9:20 AM CDT Davion Douglas MD ECG ORDERABLES [facility] * CARDIAC STRESS TEST ORDER (04/29/2013 7:40 AM CDT) Narrative 04/29/2013 7:40 AM CDT Ordered by an unspecified provider. Transcriptions Document, Scanned - 04/29/2013 7:40 AM CDT Scanned Document CARDIAC SERVICES ORD ERABLES * LAB RESULTS ORDER (04/29/2013 7:39 AM CDT) Only the most recent of2 resultswithin the time period is included. Narrative 04/29/2013 7:39 AM CDT Ordered by an unspecified provider. Transcriptions Document, Scanned - 04/29/2013 7:39 AM CDT Scanned Document LAB - THERAPEUTIC DR UG MONITORING ORDERABLES * CARDIAC RHYTHM STRIP ORDER (04/29/2013 7:39 AM CDT) Narrative 04/29/2013 7:39 AM CDT Ordered by an unspecified provider. Transcriptions Document, Scanned - 04/29/2013 7:39 AM CDT Scanned Document CARDIAC SERVICES ORD ERABLES * IMAGING/RADIOLOGY/XRAY RESULTS ORDER (04/28/2013 12:57 PM CDT) Anatomical Region Laterality Modality Other Narrative 04/28/2013 12:57 PM CDT Ordered by an unspecified provider. Transcriptions Document, Scanned - 04/28/2013 12:57 PM CDT Scanned Document IMAGING * TROPONIN I (04/25/2013 3:14 PM CDT) Only the most recent of2 resultswithin the time period is included. Troponin I <0.015 0.000 - 0.049 ng/mL 04/25/2013 3:51 PM CDT [facility] Blood BLOOD SPECIMEN / Unknown 04/25/2013 3:14 PM CDT 04/25/2013 3:21 PM CDT Narrative [facility] - 04/25/2013 3:51 PM CDT Note: Diagnosis of myocardial infarction requires symptoms of ischemia or EKG changes of ischemia and TNI >99th of normal (0.05 ng/mL). Troponin should be drawn on initial assessment and 3-6 hours later as clinically indicated. Any condition resulting in myocardial cell damage can increase cardiac troponin levels. In addition to myocardial infarction, these include but are not limited to CHF, arrhythmia, myocarditis, and non-cardiac related causes such as pulmonary embolism, renal failure and sepsis. Norm Dunn MD LAB - CHEMISTRY BHAVNA CARRINGTON [facility] [address] [place] [address] * BLOOD GASES ARTERIAL POCT (04/25/2013 10:18 AM CDT) Comment Notification Only - See Separate Report 04/25/2013 12:00 PM CDT [facility] Blood BLOOD SPECIMEN / Unknown 04/25/2013 10:18 AM CDT 04/25/2013 10:18 AM CDT Norm Dunn MD LAB - BLOOD GASES OR DERABLES Performing Organization Address City/State/[place] Co de Phone Number [facility] [address] [place] [address] * (ABNORMAL) BLOOD GASES ART (ISTAT) (04/25/2013 10:11 AM CDT) pH Arterial POCT 7.45 7.35 - 7.45 pH 04/25/2013 10:18 AM CDT [facility] pCO2 Arterial 42.3 32 - 43 mmHg 04/25/2013 10:18 AM CDT [facility] pO2 Arterial 75 72 - 104 mmHg 04/25/2013 10:18 AM CDT [facility] HCO3 Arterial POCT 29.7(H) 22 - 26 mmol/L 04/25/2013 10:18 AM CDT [facility] BE Arterial 5(H) -2 - 2 mmol/L 04/25/2013 10:18 AM CDT [facility] TCO2 Arterial Calc POCT 31(H) 22 - 29 mmol/L 04/25/2013 10:18 AM CDT [facility] O2 Saturation Arterial 96 90 - 100 % 04/25/2013 10:18 AM CDT [facility] Site L Radial 04/25/2013 10:18 AM CDT [facility] Nikolas's Test POS/PASS 04/25/2013 10:18 AM CDT [facility] Treatment Delivery Method Nasal Can 04/25/2013 10:18 AM CDT [facility] Sample iSTAT ARTERI 04/25/2013 10:18 AM CDT [facility] PT iSTAT [id number] 04/25/2013 10:18 AM CDT [facility] LPM iSTAT 1 04/25/2013 10:18 AM CDT [facility] Device 04/25/2013 10:18 AM CDT [facility] Disk Sharpener ID [id number] 04/25/2013 10:18 AM CDT [facility] Blood ARTERIAL BLOOD SPECIMEN / Unknown 04/25/2013 10:11 AM CDT 04/25/2013 10:18 AM CDT Jamaal Waters MD LAB - POINT OF CARE ORDERABLES [facility] [address] [place] [address] * VAS VENOUS DUPLEX LE BILATERAL (04/25/2013 9:03 AM CDT) Anatomical Region Laterality Modality Ultrasound 04/25/2013 8:27 AM CDT Narrative Procedure Note Ismael Kang MD - 04/25/[address] [address] Lower Extremity Venous Ultrasound Report Pat.Name: KIMBERLY MART Pat.ID: [id number] St.Date: 04/25/2013 Exam Time: 8:27:00 AM Study Type:LE Venous Age: 2 1945,67Y Sex: FEMALE Sonogrphr: Sb Pompa RVT Pat. Stat.:Inpatient Room: [facility] Reason for Study:Pain -Leg, left, Shortness of breath Procedures:Lower Extremity Venous - Bilateral Visit ID: [id number] SUMMARY: There is no evidence of an acute deep or superficial venous thrombosis in either the right or left lower extremity. FINDINGS: Procedure: Venous duplex imaging of both lower extremities was performed using color flow and spectral Doppler analysis. Study Quality: This study is of adequate technical quality. Bilateral: All vessels seen appear patent and compressible. There was spontaneous and phasic flow seen in all the major veins of both lower extremities. Appropriate augmentation with distal compression. No evidence of reflux with proximal compression. Signed 04/25/2013 11:52 PM Ismael Kang MD Transcriptions Document, Scanned - 04/25/2013 11:52 PM CDT Norm Dunn MD VASCULAR LAB ORDERAB LES * CT CHEST PE (04/25/2013 8:08 AM CDT) Anatomical Region Laterality Modality Chest Computed Tomogra phy 04/25/2013 8:21 AM CDT Impressions 04/25/2013 8:25 AM CDT Significant right lower lobe atelectasis and elevation of the right hemidiaphragm. Narrative 04/25/2013 8:[address] CHEST WITH CONTRAST INDICATION: Shortness of breath and tachycardia TECHNIQUE: The CT scan of the chest is carried out during the administration of 80cc of Omnipaque 350 utilizing the special pulmonary embolus technique. FINDINGS: There is poor opacification of the Ortho Evra vascularity. Bolus is primarily in the aorta by the time of the scan. The patient may be more hyperdynamic than expected. No central filling defects are identified to suggest acute pulmonary embolus. There is segmental atelectasis at the right lower lobe and significant elevation of the right hemidiaphragm. Thoracic and abdominal aorta appear grossly unremarkable. The lungs are otherwise clear. Procedure Note Keyona Parrish MD - 04/25/2013 CT CHEST WITH CONTRAST INDICATION: Shortness of breath and tachycardia TECHNIQUE: The CT scan of the chest is carried out during the administration of 80cc of Omnipaque 350 utilizing the special pulmonary embolus technique. FINDINGS: There is poor opacification of the Ortho Evra vascularity. Bolus is primarily in the aorta by the time of the scan. The patient may be more hyperdynamic than expected. No central filling defects are identified to suggest acute pulmonary embolus. There is segmental atelectasis at the right lower lobe and significant elevation of the right hemidiaphragm. Thoracic and abdominal aorta appear grossly unremarkable. The lungs are otherwise clear. IMPRESSION Significant right lower lobe atelectasis and elevation of the right hemidiaphragm. Norm Dunn MD CT ORDERABLES * XR CHEST 1VW PORTABLE (04/25/2013 6:09 AM CDT) Anatomical Region Laterality Modality Chest Radiographic Pennie ging 04/25/2013 8:26 AM CDT Impressions 04/25/2013 8:26 AM CDT No acute disease. Narrative 04/25/2013 8:26 AM CDT AP Portable Chest Indication: Tachycardia chest pain Findings: A single portable view of the chest shows the lungs are clear. There is significant elevation of the right hemidiaphragm and right base atelectasis. Mediastinal contour and heart size are within normal limits. Pulmonary vascularity is unremarkable. Procedure Note Keyona Parrish MD - 04/25/2013 AP Portable Chest Indication: Tachycardia chest pain Findings: A single portable view of the chest shows the lungs are clear. There is significant elevation of the right hemidiaphragm and right base atelectasis. Mediastinal contour and heart size are within normal limits. Pulmonary vascularity is unremarkable. IMPRESSION No acute disease. Norm Dunn MD DIAGNOSTIC IMAGING O RDERABLES * (ABNORMAL) HGB HCT PANEL (04/25/2013 12:52 AM CDT) Only the most recent of2 resultswithin the time period is included. Hemoglobin 9.9(L) 12.0 - 15.6 g/dL 04/25/2013 1:11 AM CDT [facility] Hematocrit 29.6(L) 35.9 - 45.5 % 04/25/2013 1:11 AM CDT [facility] Blood BLOOD SPECIMEN / Unknown 04/25/2013 12:52 AM CDT 04/25/2013 1:08 AM CDT Jamaal Waters MD LAB - HEMATOLOGY OR DERABLES [facility] [address] [place] [address] * OB SPINAL BLOCK (04/23/2013 1:18 PM CDT) Narrative Darvin Churchill CRNA - 04/23/2013 1:18 PM CDT Darvin Churchill CRNA 04/23/2013 1:18 PM Preanesthetic Checklist Completed: patient identified, IV checked, site marked, risks and benefits discussed, surgical consent, monitors and equipment checked, pre-op evaluation and questions answered / anesthesia plan accepted Spinal . Position for procedure: sitting Prep: sterile gloves, cap, mask, sterile field established, skin prepped with Betadine and kit and supplies assembled on sterile field. Needle: 22 G Quincke Location: L3-4 Location: L3-4 Response to Block: Patient Care after Block: Additional Notes: Procedure Note Darvin Churchill CRNA - 04/23/2013 1:18 PM CDT Preanesthetic Checklist Completed: patient identified, IV checked, site marked, risks and benefitsdiscussed, surgical consent, monitors and equipment checked, pre-opevaluation and questions answered / anesthesia plan accepted Spinal . Position for procedure: sitting Prep: sterile gloves, cap, mask, sterile field established, skin preppedwith Betadine and kit and supplies assembled on sterile field. Needle: 22 G Quincke Location: L3-4 Location: L3-4 Response to Block: Patient Care after Block: Additional Notes: Darvin Churchill CUT FILE CLERK-AUTOMATIC WASHER MECHANIC ID - ANESTHESI A * CULTURE MSSA/MRSA (03/30/2013 2:24 PM CDT) Culture Negative for MRSA/MSSA 03/31/2013 3:05 PM CDT [facility] MICROBIOLOGY Microbiology SPECIMEN FROM NASAL FOSSAE / Unknown 03/30/2013 2:24 PM CDT 03/30/2013 3:13 PM CDT Jamaal Waters MD LAB - MICROBIOLOGY ORDERABLES [facility] MICROBIOLOGY [address] [place] [address], [facility] * XR KNEE BILAT ONE OR TWO VIEWS (02/06/2013 11:45 AM CDT) Anatomical Region Laterality Modality Lower Extremity Radiographic Pennie ging Narrative 02/06/2013 11:45 AM CDT Nancy Fiore 02/06/2013 11:45 AM Please see progress notes for result. Procedure Note Nancy Fiore - 02/06/2013 11:45 AM CDT Please see progress notes for result. Jamaal Waters MD DIAGNOSTIC IMAGING ORDERABLES * SED RATE AUTO (ESR) (08/20/2011 11:21 AM FILTER PRESS TENDER HEAD) Only the most recent of3 resultswithin the time period is included. Erythrocyte Sedimentation Rate Westergren 12 0 - 56 mm/hr [facility] ACCOUNT BILL Blood specimen (specimen) BLOOD SPECIMEN / Unknown 08/20/2011 11:21 AM FILTER PRESS TENDER HEAD 08/20/2011 5:44 PM FILTER PRESS TENDER HEAD Narrative Resulting Agency Comment [facility] [place] [id number] [facility] [phone] Massiel Wan CUT FILE CLERK-[employer] LAB - HEMATOLOGY ORDERABLES [facility] ACCOUNT BILL * US EXTREM RIGHT CMPLT NONVASC (02/15/2011 1:36 PM CDT) Anatomical Region Laterality Modality Other Narrative 02/15/2011 1:36 PM CDT Bilateral Hand Ultrasound Protocol:Complete Bilateral Hand Study for RA Activity and Median nerve dimensions using MyLab5 Ultrasound Apparatus with a 438 probe at 18mHz. This standardized study consists of dorsal and volar views of the MCP and PIP joints, with medial and lateral views as clinically indicated to show erosive change. The wrists are evaluated with medial central and lateral longitudinal dorsal views (combined as PW ) and a transverse volar view (AW). The median nerve is identified using a sweep technique starting in the mid forearm and measured at the wrist crease immediately proximal to the carpal tunnel. Synovitis, erosions and power doppler signal are recorded as 0-3. Tenosynovitis is noted when present. 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 Synovitis is compatible with minimal inflammation without PDUS. Median nerve changes are mild median nerve enlargement L>R. IMP:Minimal signs of inflammation spotty DJD at PIPMild findings for CTS L>RContact Hector Jaramillo MD directly to discuss this case at [phone]. Procedure Note Hector Jaramillo MD - 02/15/2011 1:33 PM CDT Bilateral Hand Ultrasound Protocol: Complete Bilateral Hand Study for RA Activity and Median nerve dimensionsusing MyLab5 Ultrasound Apparatus with a 438 probe at 18mHz. Thisstandardized study consists of dorsal and volar views of the MCP and PIPjoints, with medial and lateral views as clinically indicated to showerosive change. The wrists are evaluated with medial central and laterallongitudinal dorsal views (combined as PW ) and a transverse volar view(AW). The median nerve is identified using a sweep technique starting inthe mid forearm and measured at the wrist crease immediately proximal tothe carpal tunnel. Synovitis, erosions and power doppler signal arerecorded as 0-3. Tenosynovitis is noted when present. Incidentalfindings of tophi, crystal deposition, that might effect the diagnosticimpression are recorded by the telephone supervisor under the direction of theattending physician and interpreted by Dr Jaramillo. Right Synovitis Erosion Doppler Left Synovitis Erosion Doppler 2M 1 0 0 2M 2 0 0 2P 1 0 0 2P 0 0 0 3M 0 0 0 3M 0 0 0 3P 0 D 0 3P 0 0 0 PW 1 2 0 PW 0 0 0 AW 0 0 0 AW 0 0 0 RMN 11 mm2 LMN 13mm2 Findings : Joint damage is focal DJD change in R3 PIP and right wrist.Synovitis is compatible with minimal inflammation without PDUS. Mediannerve changes are mild median nerve enlargement L>R. IMP: Minimal signs of inflammation spotty DJD at PIP Mild findings for CTS L>R Contact Hector Jaramillo MD directly to discuss this case at [phone]. Hector Jaramillo MD US ORDERABLES * US EXTREM LEFT CMPLT NONVASC (02/15/2011 1:36 PM CDT) Anatomical Region Laterality Modality Lower Extremity, Upper Extremity Other Narrative 02/15/2011 1:36 PM CDT Bilateral Hand Ultrasound Protocol:Complete Bilateral Hand Study for RA Activity and Median nerve dimensions using MyLab5 Ultrasound Apparatus with a 438 probe at 18mHz. This standardized study consists of dorsal and volar views of the MCP and PIP joints, with medial and lateral views as clinically indicated to show erosive change. The wrists are evaluated with medial central and lateral longitudinal dorsal views (combined as PW ) and a transverse volar view (AW). The median nerve is identified using a sweep technique starting in the mid forearm and measured at the wrist crease immediately proximal to the carpal tunnel. Synovitis, erosions and power doppler signal are recorded as 0-3. Tenosynovitis is noted when present. Incidental findings of tophi, crystal deposition, that might effect the diagnostic impression are recorded by the telephone supervisor under the direction of the attending physician and interpreted by Dr Jaramillo.Right KzmijynwkHomuntjTxifkeaJe[id number] 3P0D0 [id number] : Joint damage is focal DJD change in R3 PIP and right wrist. Synovitis is compatible with minimal inflammation without PDUS. Median nerve changes are mild median nerve enlargement L>R. IMP:Minimal signs of inflammation spotty DJD at PIPMild findings for CTS L>RContact Hector Jaramillo MD directly to discuss this case at [phone]. Procedure Note Hector Jaramillo MD - 02/15/2011 1:33 PM CDT Bilateral Hand Ultrasound Protocol: Complete Bilateral Hand Study for RA Activity and Median nerve dimensionsusing MyLab5 Ultrasound Apparatus with a 438 probe at 18mHz. Thisstandardized study consists of dorsal and volar views of the MCP and PIPjoints, with medial and lateral views as clinically indicated to showerosive change. The wrists are evaluated with medial central and laterallongitudinal dorsal views (combined as PW ) and a transverse volar view(AW). The median nerve is identified using a sweep technique starting inthe mid forearm and measured at the wrist crease immediately proximal tothe carpal tunnel. Synovitis, erosions and power doppler signal arerecorded as 0-3. Tenosynovitis is noted when present. Incidentalfindings of tophi, crystal deposition, that might effect the diagnosticimpression are recorded by the telephone supervisor under the direction of theattending physician and interpreted by Dr Jaramillo. Right Synovitis Erosion Doppler Left Synovitis Erosion Doppler 2M 1 0 0 2M 2 0 0 2P 1 0 0 2P 0 0 0 3M 0 0 0 3M 0 0 0 3P 0 D 0 3P 0 0 0 PW 1 2 0 PW 0 0 0 AW 0 0 0 AW 0 0 0 RMN 11 mm2 LMN 13mm2 Findings : Joint damage is focal DJD change in R3 PIP and right wrist.Synovitis is compatible with minimal inflammation without PDUS. Mediannerve changes are mild median nerve enlargement L>R. IMP: Minimal signs of inflammation spotty DJD at PIP Mild findings for CTS L>R Contact Hector Jaramillo MD directly to discuss this case at [phone]. Hector Jaramillo MD US ORDERABLES * ASAD W REFLX (POSITIVE) (PO REF LAB) (02/15/2011 10:44 AM CDT) ASAD Direct Negative Negative- [facility] ACCOUNT BILL BLOOD SPECIMEN / Unknown 02/15/2011 10:44 AM CDT 02/15/2011 5:55 PM CDT Narrative Resulting Agency Comment [facility] [address] [id number] Hector Jaramillo MD LAB - SEROLOGY ORDER FARRUKH [facility] ACCOUNT BILL * XR KNEE RIGHT 1 OR 2 VW MP (02/08/2011 4:06 PM CDT) Anatomical Region Laterality Modality Lower Extremity Other Narrative 02/08/2011 4:06 PM CDT Joint space narrowing bilaterally Procedure Note Massiel Wan ANP - 02/08/2011 4:06 PM CDT Joint space narrowing bilaterally Massiel Wan CUT FILE CLERK-ESTATE PLANNING [employer] DIAGNOSTIC IMAGIN G ORDERABLES * XR KNEE LEFT 1 OR 2 VW MP (02/08/2011 4:06 PM CDT) Anatomical Region Laterality Modality Lower Extremity Other Narrative 02/08/2011 4:06 PM CDT Joint space narrowing bilaterally Procedure Note Massiel Wan ANP - 02/08/2011 4:06 PM CDT Joint space narrowing bilaterally Massiel Wan CUT FILE CLERK-ESTATE PLANNING [employer] DIAGNOSTIC IMAGIN G ORDERABLES * LYME DISEASE AB REFLEX WB (03/27/2010 10:34 AM CDT) Lyme Disease Antibody IgG/IgM <0.91 0.00 - 0.90 index [facility] ACCOUNT BILL Comment: Negative <0.91 Equivocal 0.91 - 1.09 Positive >1.09 Note: The CDC currently advises that Western blot testing be performed following all equivocal or positive EIA results. Final diagnosis should include appropriate clinical findings and a positive EIA which is also positive by Western blot. Interpretation Lyme Antibody EIA Negative [facility] ACCOUNT BILL Interpretation Lyme Antibody EIA NOT AVAIL. [facility] ACCOUNT BILL BLOOD SPECIMEN / Unknown 03/27/2010 10:34 AM CDT 03/27/2010 5:06 PM CDT Narrative [facility] ACCOUNT BILL - 03/30/2010 12:10 PM CDT Additional Result Information LYME AB INTERP.,EIA BLOOD ([facility]): RESULT NOT AVAILABLE Resulting Agency Comment [facility] [address] [phone] Hector Jaramillo MD LAB - SEROLOGY ORDER FARRUKH [facility] ACCOUNT BILL * XR PELVIS 1 OR 2 VW (01/02/2010 4:53 PM CDT) Hector Jaramillo MD DIAGNOSTIC IMAGING O RDERABLES * HLA TYPING B27 (01/02/2010 10:13 AM CDT) HLA-B27 Negative [facility] ACCOUNT BILL Comment: This test was performed using PCR (Polymerase Chain Reaction)/SSOP (Sequence Specific Oligonucleotide Probes) technique. SBT (Sequence Based Typing) and/or SSP (Sequence Specific Primers) may be used as supplemental methods when necessary. Please contact [facility] Customer Service at if you have any questions. . Director of [facility] Laboratory Dr Dawson Lyn, PhD BLOOD SPECIMEN / Unknown 01/02/2010 10:13 AM CDT 01/02/2010 5:23 PM CDT Narrative Resulting Agency Comment [facility] [address] [facility] [phone] Hector Jaramillo MD LAB - CHEMISTRY BHAVNA CARRINGTON [facility] ACCOUNT BILL * XR KNEE BILAT 3 VIEWS (12/19/2009 4:39 PM CDT) Hector Jaramillo MD DIAGNOSTIC IMAGING O RDERABLES * (ABNORMAL) MARCIN STAINING PATTERNS (PO REF LAB) (12/19/2009 9:47 AM CDT) Homogeneous Pattern 1:160(H) [facility] ACCOUNT BILL Nucleolar Pattern NOT AVAIL. [facility] ACCOUNT BILL Speckled Pattern NOT AVAIL. [facility] ACCOUNT BILL Centromere Pattern NOT AVAIL. [facility] ACCOUNT BILL Note [facility] ACCOUNT BILL Comment: A positive ASAD result may occur in healthy individuals or be associated with a variety of diseases. See interpre- tation below: . Pattern Antigen Detected Suggested Disease Association Homogeneous DNA(ds,ss,), High titers - SLE (Smooth) Histone Speckled Sm, RIGHT OF WAY CUTTER, SCL-70, SLE,MCTD,Scleroderma,Sjogrens SS-A/SS-B Nucleolar SCL-70, PM-1/SCL High titers Scleroderma Poly- myositis/Scleroderma Overlap Centromere Centromere PSS w/Crest syndrome variable 12/19/2009 9:47 AM CDT 12/19/2009 6:47 PM CDT Narrative [facility] ACCOUNT BILL - 12/22/2009 2:15 PM CDT Additional Result Information NUCLEOLAR PATTERN ([facility]): RESULT NOT AVAILABLE SPECKLED PATTERN ([facility]): RESULT NOT AVAILABLE CENTROMERE PATTERN ([facility]): RESULT NOT AVAILABLE Resulting Agency Comment [facility] [place] [address] [facility] [phone] Hector Jaramillo MD LAB - PATHOLOGY/CYTO LOGY ORDERABLES Performing Organization Address [facility]/ZIP Co de Phone Number [facility] ACCOUNT BILL * ANTINUCLEAR ANTIBODIES, IFA (PO REF LAB) (12/19/2009 9:47 AM CDT) ASAD See patterns [facility] ACCOUNT BILL Comment: Negative <1:80 Borderline 1:80 Positive >1:80 12/19/2009 9:47 AM CDT 12/19/2009 6:47 PM CDT Narrative Resulting Agency Comment [facility] [place] [address] [facility] [phone] Hector Jaramillo MD LAB - CHEMISTRY BHAVNA CARRINGTON [facility] ACCOUNT BILL * TSH (12/19/2009 9:47 AM CDT) TSH 3.630 0.450 - 4.500 uIU/mL [facility] ACCOUNT BILL BLOOD SPECIMEN / Unknown 12/19/2009 9:47 AM CDT 12/19/2009 6:47 PM CDT Narrative Resulting Agency Comment [facility] [address] [phone] Hector Jaramillo MD LAB - CHEMISTRY BHAVNA CARRINGTON [facility] ACCOUNT BILL Care Teams Marklogic Developer Relationship Specialty Start Date End Date Cortez Grossman MD [address] [place] [address] PCP - General Internal Medicine 10/07/15 Hector Jaramillo MD Rheumatology 05/25/11 [place] [id number] [place] [id number] Orthopedic Surgery 12/20/11 [place] [id number] [place] [phone] Psychiatry 07/24/14
--- OUTSIDE RECORDS SUMMARY | 2024-10-30 09:25 | XMS_ITS ---
Author Organization [facility] Address [address] [place] [address] Care Team Providers Care Marketing Production Manager Name Role Phone Cortez Grossman MD Primary Care Provider Jacinto Wang MD Unavailable + Eri Jacob MD Unavailable Joaquina Nice MD Unavailable Kishan John MD Unavailable Sam Boogie MD Unavailable Jersey Asher MD PhD Unavailable OtonielVenkat Aranda MD Unavailable Active Problems Problem Noted Date Diagnosed Date Encounter for screening mamm ogram for malignant neoplasm of breast 07/10/2024 Assessment & Plan (07/11/2024 8:56 AM SCENIC ARTIST): Mammogram ordered. Will plan accordingly once results are received. Class 2 severe obesity due t o excess calories with serious comorbidity and body mass index (BMI) of 39.0 to 39.9 in adult 07/10/2024 Assessment & Plan (07/11/2024 8:58 AM SCENIC ARTIST): Continue with heart healthy diet. On supplemental oxygen by nasal cannula 03/28/20 Assessment & Plan (07/11/2024 8:57 AM SCENIC ARTIST): Continues with O2 q.h.s.. Denies any daytime dyspnea. Will continue to monitor. Assessment & Plan (03/28/2024 4:24 PM CDT): Continue with O2 supplement at night. Hypertensive heart disease with heart failure (C MS/HCC) 03/28/2024 Assessment & Plan (07/11/2024 8:57 AM SCENIC ARTIST): Well controlled on metoprolol, furosemide. Reviewed lifestyle recommendations. Will continue to monitor. Type 2 diabetes mellitus with hyperlipidemia 04/2024 Assessment & Plan (07/11/2024 8:59 AM SCENIC ARTIST): A1c 6.6%. Good job. Will continue with [...] 10/2022 Assessment & Plan (07/10/2024 3:13 PM SCENIC ARTIST): Visit preventive in nature. We reviewed medications, [...] (09/19/2020): Added automatically from request for surgery [id number] Acute rhinitis 11/13/2019 Assessment & Plan (11/13/2019 10:05 AM CDT): Advised on use of Flonase. Referred otalgia of both ears 06/11/2019 Assessment & Plan (06/11/2019 2:38 PM CDT): TMJ dysfunction discussed and Handout provided Laryngopharyngeal reflux (LPR) 06/11/2019 Assessment & Plan (06/11/2019 4:20 PM CDT): Continue omeprazole Gastroesophageal reflux disease without esophagi tis 04/13/2019 Overview (04/13/2019): Added automatically from request for surgery [id number] Upper respiratory virus 12/22/2018 Assessment & Plan [...] (09/29/2018): Added automatically from request for surgery [id number] Acute non-recurrent pansinusitis 09/13/2018 Assessment & Plan [...] measures. Assessment & Plan (09/13/2018 1:30 PM SCENIC ARTIST): Acute on Chronic Sinusitis Has had sinus [...] Carcinoma of tail of pancreas (CMS/HCC) 08/09/20 Assessment & Plan (07/11/2024 9:01 AM SCENIC ARTIST): Does continue following with GI. Reports she [...] (07/18/2018): Added automatically from request for surgery [id number] Bloating 03/17/2018 Assessment & Plan (03/18/2018 1:25 [...] weeks Assessment & Plan (09/19/2020 11:32 AM SCENIC ARTIST): 6 mos of RLQ abd pain rleieved [...] NTV/GFT Assessment & Plan (07/11/2024 8:59 AM SCENIC ARTIST): Denies chest pain. Compliant with medication regimen. [...] oxygen 2 liters nightly. Has not seen exercise science internship in some time. Previously using Trelegy daily, [...] eye exam. -continue metformin 1000 mg b.i.d.. Current Treatment and Therapy Plans No current plan information found. Past Treatment and Therapy Plans Oncology Chemotherapy Treatment Plan Name Start Date Discontinue Date Treatment Medications Discontinue Reason Plan Provider Cycles FOLFIRINOX: (Fluorouracil / Leucovorin / Irinotecan / OXALIplatin) 14 Day Cycles - Pancreatic 01/18/20 19 08/08/2019 fluorouracil (ADRUCIL)fluorouracil (ADRUCIL) infusion - for home infusion (ADRUCIL)IRINOtecan (CAMPTOSAR)IRINOtecan (CAMPTOSAR) IVPB in 250 mLleucovorinleucovorin IVPB in 250 mLoxaliplatin (ELOXATIN)oxaliplatin (ELOXATIN) IVPB Therapy Complete Eri Jacob MD 6 of 6 cycles started [id number] - [facility] - GI - Part A Control Arm - Gemcitabine / Albumin-bound PACLItaxel (Abraxane) 018 01/04/2019 albumin-bound PACLItaxel (ABRAXANE)gemcitabine (GEMZAR)gemcitabine IVPB in 250 mL (using 100 mg/ml gemcitabine) ([id number]) Therapy Complete Eri Jacob MD 3 of 4 cycles started Oncology Supportive Care Plan Name Start Date Discontinue Date Treatment Medications Discontinue Reason Plan Provider IV MAINTENANCE THERAPY PLAN 8 11/15/2023 No medications scheduled. Automatic discontinuation of dormant plans Eri Jacob MD Specialty Infusion Treatment Plan Name Start Date Discontinue Date Treatment Medications Discontinue Reason Plan Provider ALTEPLASE (CATHFLOW ACTIVASE) - ORDERS FOR OCCLUDED CATHETERS 09/21/2018 07/13/2023 No medications scheduled. Automatic discontinuation of dormant plans Eri Jacob MD Lifetime Dose Tracking * Chemical Lifetime Dose Automatic Entry Manual Entr y Fluoro Time 0.55 minutes 0.55 minutes 0 minutes Air kerma at the reference point (Ka,r) 8.11 mGy 8 .11 mGy 0 mGy DLP 17,057 mGycm 17,057 mGycm 0 mGycm Resolved Problems Problem Noted Date Diagnosed Date [...] activity. Assessment & Plan (09/13/2018 1:21 PM SCENIC ARTIST): Obesity is unchanged. Discussed the patient's BMI. [...] greens, fat-free milk, cottage cheese, nuts like ssyilrp-vzfhdtp-vjziroi, protein bars with 10-15 g of protein and 20-30 g of carbohydrate. Choose whole grain breads and pastas, brown rice, sweet potatoes, read onions--these whole grains absorb more slowly thus blood sugar does not surge so high so quickly. Avoid drinking juice, eat a piece of fruit instead. Assessment & Plan (08/13/2018 9:18 PM SCENIC ARTIST): Encourage a weight loss program such as Weight Watchers incorporating dietary changes and aerobic / weight-bearing exercise at least 4-5 times per week, for at least 30-45 minute sessions. Impaired glucose tolerance 01/19/2013 0 11/02/2022 Overview (12/09/2016): Borderline diabetes Adiposity 07/09/2011 11/02/2022 Overview (12/09/2016): Obesity Sicca 12/19/2009 12/22/2018
--- OUTSIDE RECORDS SUMMARY | 2024-10-30 09:26 | XMS_ITS | Encounter Summary ---
Author Organization [facility] Healthcare Address [address] [place] [address] Care Team Providers Care Medical Records Clerk Name Role Phone Cortez Grossman MD Primary Care Provider [phone] Jacinto Wang MD Unavailable + Eri Jacob MD Unavailable Joaquina Nice MD Unavailable [phone] Kishan John MD Unavailable [phone] Sam Boogie MD Unavailable [phone] Jersey Asher MD PhD Unavailable + [phone] Venkat Kelsey MD Unavailable [phone] Brandie Ram LPN Unavailable [phone] Reason for Visit * Reason Onset Date Comments Scheduling Appointments 03/24/2021 confirme d dexa Encounter Details Date Type Department Care Team (Late st Contact Info) Description 03/24/2021 Telephone [facility] [address] [place] [address] Tamy Hopper, Scheduling Appointments (confirmed dexa) Social History Tobacco Use Types Packs/Day [...] on file Legal Sex 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 Gender Identity Not on file Sexual Orientation Not on file documented as of this encounter Plan of Treatment Not on file documented as of this encounter Visit Diagnoses Not on filedocumented in this encounter Additional Health Concerns Infection Onset Date Last Indicated Resolved Time COVID: Suspected 04/27/2023 04/27/2023 04/27/2023 4:40 PM CDT documented as of this encounter Care Teams Medical Records Clerk Relationship Specialty Start Date End Date Cortez Grossman MD [address] [place] [address] PCP - General 10/14/17 Jacinto Wang MD [address] [place] [address] Referring Physician Gastroenterology 08/03/18 Eri Jacob MD [address] [place] [address] Referring Physician Medical Oncology 08/15/18 Joaquina Niec MD [address] [facility] [address] [place], [place] [id number] Referring Physician Transplant Hepatology 11/04/18 Kishan John MD [address] [facility] [address] [place] [address] Radiation Oncologist Radiation Oncology 01/30/19 Sam Boogie MD [address] [facility] [address] [place] [address] Psychiatry 02/19/19 Jersey Asher MD PhD [address] [facility] [address] [place] [address] Radiation Oncologist Radiation Oncology 04/02/19 Venkat Kelsey MD [address] [facility] [address] [place] [address] Consulting Physician Cardiology 01/15/22 Brandie Ram, KNOWLEDGE MANAGEMENT ADVISOR [address] [place] [address] [address] [place] [address] ACO Care Mobile Designer 01/18/22 01/27/22 documented as of this encounter
--- OUTSIDE RECORDS SUMMARY | 2024-10-30 09:26 | XMS_ITS | Encounter Summary ---
Author Organization [facility] Healthcare Address [address] [place] [address] Care Team Providers Care Wafer Polishing Worker Name Role Phone Cortez Grossman MD Primary Care Provider [phone] Jacinto Wang MD Unavailable + Eri Jacob MD Unavailable Joaquina Nice MD Unavailable [phone] Kishan John MD Unavailable [phone] Sam Boogie MD Unavailable [phone] Jersey Asher MD PhD Unavailable [phone] Venkat Kelsey MD Unavailable [phone] Brandie Ram LPN Unavailable [phone] Encounter Details Date Type Department Care Team (Late st Contact Info) Description 03/16/2021 Telephone [facility] [address] [place] [address] Corin Madrigal, RT Social History Tobacco Use Types Packs/Day [...] on file Legal Sex Female 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 Gender Identity Not on file Sexual Orientation Not on file documented as of this encounter Plan of Treatment Not on file documented as of this encounter Visit Diagnoses Not on filedocumented in this encounter Additional Health Concerns Infection Onset Date Last Indicated Resolved Time COVID: Suspected 04/27/2023 04/27/2023 04/27/2023 4:40 PM CDT documented as of this encounter Care Teams Wafer Polishing Worker Relationship Specialty Start Date End Date Cortez Grossman MD [address] [place] [address] PCP - General 10/14/17 Jacinto Wang MD [address] [place] [address] Referring Physician Gastroenterology 08/03/18 Eri Jacob MD [address] [facility] [address] [place] [address] Referring Physician Medical Oncology 08/15/18 Joaquina Nice MD [address] [facility] [address] [place], [place] [id number] Referring Physician Transplant Hepatology 11/04/18 Kishan John MD [address] [facility] [address] [place], [place] [id number] Radiation Oncologist Radiation Oncology 01/30/19 Sam Boogie MD [address] [address] Psychiatry 02/19/19 Jersey Asher MD PhD [address] [place] [address] Radiation Oncologist Radiation Oncology 04/02/19 Venkat Kelsey MD [address] [place] [address] Consulting Physician Cardiology 01/15/22 Brandie Ram, SUPERVISOR [employer]ATING [address] [facility] [address] [place] [address] ACO Care Tap Out Operator 01/18/22 01/27/22 documented as of this encounter
--- OUTSIDE RECORDS SUMMARY | 2024-10-30 09:26 | XMS_ITS | Continuity of Care Document ---
Author Organization [facility] Address [address] [place] [address] [place] [address] Phone Care Team Providers Care Front Line Leader Name Role Phone Abdifatah Faustin MD Unavailable Unavailable Medications Medication Instructions Dosage Effective Dates (start - stop) Status Comments ProAir RespiClick 90 mcg/actuation breath activated inhale 2 puff by inhalation route every 4 - 6 hours as needed 180 MCG - Active Eliquis 5 mg tablet take 1 tablet by oral route 2 times every day 5 MG - Active duloxetine 30 mg capsule,delayed release take 1 capsule by oral route every day 30 MG - Active fluoxetine 10 mg capsule take 2 capsule by oral route every day 20 MG - Active Tirosint 150 mcg capsule take 1 capsule by oral route every day 150 MCG - Active Creon 36,000 unit-114,000 unit-180,000 unit capsule,delayed release take 1 capsule by oral route 3 times every day with meals and 1 capsule with each snack swallowing whole. Do not crush, chew and/or divide. 1.00 capsule - Active lorazepam 0.5 mg tablet take 2 tablet by oral route 3 times every day as needed 1 MG - Active metformin 500 mg tablet take 2 tablet by oral route every day with morning and evening meals 1000 MG - Active olanzapine 2.5 mg tablet take 2 tablet by oral route every day 5 MG - Active Advance Directives Directive Yes / No Effective Date File Name No Information Encounters Encounter Description Practice Location Reason(s) For Visit Diagnoses Date Provider Providers Copied on Encounter [facility], [id number] [place] [address] [address], [place], [place], [id number], tel:[phone] [facility] Professional No Information Ramin Gardiner. [address], [address], [place], [place], [address], [place]. tel:[phone] Family History Family Member Type Diagnosis Age At Onset No Information Payers Payer name Insurance type Covered republican ID Authoriza tion(s) No Information Social History Type Description Quantity Date Captured Comments Sex Female Smoking Status No Information Chief Complaint And Reason For Visit No Information Reason For Referral Reason For Referral No Information History Of Present Illness Encounter Date Complaint History Of Prese nt Illness No Information Functional Status Date Functional Assessmen t No Information Instructions Date Instruction Additional Infor mation No Information Assessments Type Assessment Date No Information Patient Care Teams Name Effective Dates (start - stop) Status Members No Information
--- OUTSIDE RECORDS SUMMARY | 2024-10-30 09:31 | XMS_ITS | Continuity of Care Document ---
Author Organization [facility] Address [address] [place] [address] [place] [address] Phone Care Team Providers Care Forensic Nurse Name Role Phone Abdifatah Faustin MD Unavailable [...] Diagnoses Date Provider Providers Copied on Encounter [facility], [id number] [place] [address] [address], [place], [place], [id number], tel:[phone] [facility] Professional No Information Ramin Gardiner. [address], [address], [place], [place], [id number], [place]. tel:[phone] Family History Family Member Type Diagnosis Age At Onset No Information Payers Payer name Insurance type Covered libertarian ID Authoriza tion(s) No Information Social History [...]
--- NOTE | 2024-10-30 09:53 | ED_ITS ---
HPI - General Adult General Chief complaint: Upper Respiratory Infection Stated complaint: Shortness of Breath/Cough Source: patient Mode of arrival: ambulatory Limitations: no limitations History of Present Illness HPI narrative: Pt presents for evaluation of sick symptoms. She states she had what she thought was a sinus infection a few weeks ago. She states the sinus congestion and drainage improved. Three days ago she developed a cough, SOB, fever, chills, generalized body aches, sore throat, nausea and vomiting. She has an underlying history of COPD and wears O2 at night. Related Data Home Medications ?Medication ?Instructions ?Recorded ?Confirmed ?Last Taken ?Type albuterol sulfate 2.5 mg/3 mL mg 02/06/24 Unknown History (0.083 %) solution for nebulization aspirin 81 mg tablet,delayed mg 02/06/24 Unknown History release duloxetine 60 mg capsule,delayed mg PO 02/06/24 Unknown History release escitalopram oxalate 10 mg tablet mg 02/06/24 Unknown History furosemide 20 mg tablet mg 02/06/24 Unknown History isosorbide mononitrate 30 mg mg PO 02/06/24 Unknown History tablet,extended release 24 hr levothyroxine 150 mcg tablet mcg 02/06/24 Unknown History lorazepam 0.5 mg tablet mg 02/06/24 Unknown History metformin 500 mg tablet mg 02/06/24 Unknown History metoprolol succinate 25 mg mg PO 02/06/24 Unknown History tablet,extended release 24 hr montelukast 10 mg tablet mg 02/06/24 Unknown History olanzapine 5 mg tablet mg 02/06/24 Unknown History omeprazole 40 mg capsule,delayed mg 02/06/24 Unknown History release pen needle, diabetic 31 gauge x 02/06/24 02/06/24 Unknown History 5/16 (BD Ultra-Fine Short Pen Needle) semaglutide 0.25 mg or 0.5 mg (2 mg subcut 02/06/24 Unknown History mg/3 mL) subcutaneous pen injector (Ozempic) dicyclomine 20 mg tablet mg 05/05/24 Unknown History diphenoxylate-atropine 2.5 tablet 05/05/24 Unknown History mg-0.025 mg tablet fenofibrate 160 mg tablet mg 05/05/24 Unknown History fluticasone fur. 100 mcg-umeclid inhalation 05/05/24 Unknown History 62.5 mcg-vilant 25 mcg inhalat.powder (Trelegy Ellipta) Allergies Allergy/AdvReac Type Severity Reaction Status Date / Time atorvastatin Allergy Unknown Other Verified 05/05/24 14:35 prochlorperazine Allergy Unknown Unknown Verified 05/05/24 14:35 Sulfa (Sulfonamide Allergy Unknown Unknown Verified 05/05/24 14:35 Antibiotics) naproxen AdvReac Unknown Nausea Verified 05/05/24 14:35 Tetracyclines AdvReac Unknown Nausea and Verified 05/05/24 14:35 Vomiting Review of Systems Review of Systems: CONSTITUTIONAL: Reports fever and chills EYES: Denies visual changes, redness, or discharge. ENT: Reports sore throat. Denies rhinorrhea, congestion, or otalgia. CARDIOVASCULAR: Denies chest pain, palpitations, or edema. RESPIRATORY: Denies cough or dyspnea. GASTROINTESTINAL: Reports nausea and vomiting. GENITOURINARY: Denies dysuria or hematuria. SKIN: Denies rash or itching. MUSCULOSKELETAL: Reports generalized body aches NEUROLOGIC: Denies headache, numbness, dizziness, or weakness. PSYCHIATRIC: Denies anxiety or depression. [facility] Past Medical History Medical History (Updated 10/30/24 @ 10:23 by LYUDMILA Olivier, ) Acid reflux Anxiety and depression Diabetes COPD (chronic obstructive pulmonary disease) Surgical History Surgical History No pertinent past surgical history Family History Family History Mother Family history non-contributory Social History Social History Smoking status: Former smoker Living arrangements: with family Gender identity (if verbalized by the patient): Female Exam Narrative: GENERAL: Well-appearing, well-nourished, and in no acute distress. HEAD: Normocephalic, atraumatic. EYES: PERRLA and EOMI. ENT: Nares clear, no rhinorrhea or epistaxis. Mucous membranes moist. Oropharynx without tonsillar hypertrophy exudate or other lesions. Bilateral TMs pearly viera nonbulging NECK: Supple. No adenopathy or masses. No carotid bruits or JVD CHEST: Clear to auscultation. No respiratory distress. No wheezes rales or rhonchi HEART: Regular rate and rhythm. No murmur heard. Normal peripheral pulses. ABDOMEN: Soft, nontender, nondistended, normal active bowel sounds. EXTREMITIES: Normal range of motion. No edema. SKIN: Warm, dry, no rash. NEURO: No focal deficits. Alert and oriented x3. PSYCH: Normal mood and affect. Course Course Emergency Course: This is a 79-year-old female who presented for evaluation of sick symptoms. Influenza and COVID negative. CXR without infiltrate. Exam consistent with acute viral syndrome. Will dc with prednisone, zofrand and albuterol. Increase hydration. [id number] agents for symptom management. Follow up with primary provider. Go to the ER for worsening symptoms. Pt in agreement with plan of care. Level of Care: Express Care Visit Vital Signs Vital signs: Vital Signs Temperature 36.8 C 10/30/24 09:15 Pulse Rate 91 10/30/24 09:15 Respiratory Rate 20 10/30/24 09:15 Blood Pressure 131/53 L 10/30/24 09:15 Pulse Oximetry 94 10/30/24 09:15 Oxygen Delivery Room Air 10/30/24 09:15 Temperature 36.8 C 10/30/24 09:15 Pulse Rate 91 10/30/24 09:15 Respiratory Rate 20 10/30/24 09:15 Blood Pressure 131/53 L 10/30/24 09:15 Pulse Oximetry 94 10/30/24 09:15 Oxygen Delivery Room Air 10/30/24 09:15 Medical Decision Making Vital Signs Vital Signs: Vital Signs Temperature 36.8 C 10/30/24 09:15 Pulse Rate 91 10/30/24 09:15 Respiratory Rate 20 10/30/24 09:15 Blood Pressure 131/53 L 10/30/24 09:15 Pulse Oximetry 94 10/30/24 09:15 Oxygen Delivery Room Air 10/30/24 09:15 Temperature 36.8 C 10/30/24 09:15 Pulse Rate 91 10/30/24 09:15 Respiratory Rate 20 10/30/24 09:15 Blood Pressure 131/53 L 10/30/24 09:15 Pulse Oximetry 94 10/30/24 09:15 Oxygen Delivery Room Air 10/30/24 09:15 Lab Data Labs: Lab Results 10/30/24 Range/Units 10:09 POC Influenza A Ag Negative (Negative) POC Influenza B Ag Negative (Negative) POC SARS CoV-2 Ag Negative (Negative) Discharge Plan Discharge Clinical Impression: Upper respiratory infection, viral Patient Disposition: Home, Self-Care Condition: Stable Instructions: Antibiotic Form, Upper Respiratory Infection (ED), Viral Syndrome (ED) Patient Language: Turkmen Prescriptions: New prednisone 50 mg tablet 50 mg PO DAILY Qty: 5 0RF benzonatate 100 mg capsule 100 mg PO TID PRN (Reason: cough) Qty: 30 0RF ondansetron 4 mg tablet,disintegrating 4 mg PO Q6H PRN (Reason: nausea and vomiting) Qty: 15 0RF No Action metformin 500 mg tablet albuterol sulfate 2.5 mg /3 mL (0.083 %) solution for nebulization isosorbide mononitrate 30 mg tablet extended release 24 hr PO olanzapine 5 mg tablet aspirin 81 mg tablet,delayed release (DR/EC) lorazepam 0.5 mg tablet levothyroxine 150 mcg tablet montelukast 10 mg tablet furosemide 20 mg tablet metoprolol succinate 25 mg tablet extended release 24 hr PO (DME) pen needle, diabetic [BD Ultra-Fine Short Pen Needle] 31 gauge x 5/16 needle MISCELLANEOUS escitalopram oxalate 10 mg tablet Ozempic 0.25 mg or 0.5 mg (2 mg/3 mL) pen injector SUBCUT omeprazole 40 mg capsule,delayed release(DR/EC) duloxetine 60 mg capsule,delayed release(DR/EC) PO diphenoxylate-atropine 2.5-0.025 mg tablet dicyclomine 20 mg tablet fenofibrate 160 mg tablet Trelegy Ellipta 100-62.5-25 mcg blister with device INHALATION Follow-up/Referrals: Indra Jackman [Other] Time of Disposition: 10:25
[2024-10-30 10:11] LABS: EDCOVIDSCREEN Negative (Negative); EDINFLUASCREEN Negative (Negative); EDINFLUBSCREEN Negative (Negative)
== END 2024-10-30 10:33 | disposition home or self-care (01) ==
PROVIDERS: Emergency Provider Nurse Practitioner
DX: J06.9 Acute upper respiratory infection, unspecified (principal); Z20.822 Contact with and (suspected) exposure to COVID-19; Z87.891 Personal history of nicotine dependence; E11.9 Type 2 diabetes mellitus without complications; J44.9 Chronic obstructive pulmonary disease, unspecified; K21.9 Gastro-esophageal reflux disease without esophagitis
CPT/HCPCS: 71046; 87426; 87804; 99213; G0463